=== PATIENT | male | born 1960 | race Caucasian/White ===

== ENCOUNTER 2017-09-06 09:46 | Emergency (ER) | payer MEDICARE, MEDICAID ==
[~2017-09-06 09:46] MED LIST: AMLO10TA82; ASP325T; ASP325T PO; ATOR80TA; CLPD75T; DLT60T PO; ENLP5T PO; HYDR-2889 PO; MTP100TCR PO; NTR.4SL SL; TRAM50TA2 PO; VALS320T8; VRP80T; [UNRECOGNIZED DRUG - CODE] PO; aleve; glipizide; hydrochlorothiazide; simvastatin
== END 2017-09-06 10:32 | disposition left against medical advice (07) ==
LOC: EDUNIT# 09:46 → ER 09:48
DX: S89.90XA Unspecified injury of unspecified lower leg, initial encounter (principal); W19.XXXA Unspecified fall, initial encounter

== ENCOUNTER → 2019-07-25 | Outpatient (CLI) | payer MEDICARE, MEDICAID ==
[2019-07-25 17:37] LABS: HEMOGLOBIN 14.8 G/DL (13.3-17.7); MEAN PLATELET VOLUME 12.1 FL (7.4-10.4); WHITE BLOOD COUNT 6.9 10^3/uL (4.3-11.0)
[2019-07-25 17:57] LABS: ALBUMIN 4.1 GM/DL (3.2-4.5); BILIRUBIN,TOTAL 0.7 MG/DL (0.1-1.0); CALCIUM 9.3 MG/DL (8.5-10.1); CREATININE SERUM 1.23 MG/DL (0.60-1.30); MAGNESIUM 2.1 MG/DL (1.6-2.4); POTASSIUM 4.4 MMOL/L (3.6-5.0); TOTAL PROTEIN 6.3 GM/DL (6.4-8.2)
== END ==
LOC: LABNPT 17:14
PROVIDERS: ATTEND Nurse Practitioner Family
DX: Z12.5 Encounter for screening for malignant neoplasm of prostate (principal); I25.10 Atherosclerotic heart disease of native coronary artery without angina pectoris; E11.9 Type 2 diabetes mellitus without complications; E78.5 Hyperlipidemia, unspecified; E55.9 Vitamin D deficiency, unspecified; E53.8 Deficiency of other specified B group vitamins
CPT/HCPCS: 80053; 82306; 82607; 83036; 83735; 84153; 85027

== ENCOUNTER → 2019-11-02 | Outpatient (CLI) | payer MEDICAID ==
[~2019-11-02] MED LIST changes: -TRAM50TA2 PO; +TRM50T PO
== END | disposition home or self-care (01) ==
LOC: PREOP 05:45
PROVIDERS: ATTEND Specialist
DX: Z01.818 Encounter for other preprocedural examination (principal)

== ENCOUNTER → 2021-01-30 | Outpatient (CLI) | payer MEDICAID ==
[2021-01-30 20:06] LABS: HEMATOCRIT 40 % (40-54); HEMOGLOBIN 13.4 g/dL (13.3-17.7); MEAN CORPUSCULAR HEMOGLOBIN 27 pg (25-34); MEAN CORPUSCULAR HGB CONC 34 g/dL (32-36); MEAN CORPUSCULAR VOLUME 80 fL (80-99); MEAN PLATELET VOLUME 10.8 fL (9.0-12.2); PLATELET COUNT 302 10^3/uL (130-400); WHITE BLOOD COUNT 8.9 10^3/uL (4.3-11.0)
[2021-01-30 20:26] LABS: ALBUMIN 3.5 GM/DL (3.2-4.5); BILIRUBIN,TOTAL 0.6 MG/DL (0.1-1.0); CALCIUM 9.5 MG/DL (8.5-10.1); CREATININE SERUM 1.65 MG/DL (0.60-1.30); MAGNESIUM 2.1 MG/DL (1.6-2.4); POTASSIUM 3.6 MMOL/L (3.6-5.0); TOTAL PROTEIN 5.7 GM/DL (6.4-8.2)
== END ==
LOC: LABNPT 19:00
PROVIDERS: ATTEND Nurse Practitioner Family
DX: E11.9 Type 2 diabetes mellitus without complications (principal); I50.9 Heart failure, unspecified
CPT/HCPCS: 36415; 80053; 82728; 83540; 83735; 83880; 84443; 85027

== ENCOUNTER 2021-02-08 14:47 | Outpatient (CLI) | payer MEDICARE, MEDICAID | END 2021-02-08 15:30 | disposition home or self-care (01) | LOC: SLEEP 14:47 | PROVIDERS: ATTEND Nurse Practitioner Family | DX: G47.33 Obstructive sleep apnea (adult) (pediatric) (principal); G47.10 Hypersomnia, unspecified | CPT/HCPCS: G0399 ==

== ENCOUNTER 2021-03-09 07:44 | Inpatient (IN) | payer MEDICARE, MEDICAID ==
[~2021-03-09] VITALS: Ht 170.1 cm; Wt 58.9 kg
[2021-03-09] MEDS ORDERED: morphine INJ 10 MG/ML 1ML (SYR OR VIAL) IVP STA (08:23)
[2021-03-09 08:34] LABS: BASOPHILS # (AUTO) 0.1 10^3/uL (0.0-0.1); BASOPHILS % (AUTO) 1 % (0-10); EOSINOPHILS # (AUTO) 0.2 10^3/uL (0.0-0.3); EOSINOPHILS % (AUTO) 2 % (0-10); HEMATOCRIT 38 % (40-54); LYMPHOCYTES # (AUTO) 1.1 10^3/uL (1.0-4.0); LYMPHOCYTES % (AUTO) 12 % (12-44); MEAN CORPUSCULAR HEMOGLOBIN 26 pg (25-34); MEAN CORPUSCULAR HGB CONC 32 g/dL (32-36); MEAN CORPUSCULAR VOLUME 83 fL (80-99); MEAN PLATELET VOLUME 9.7 fL (9.0-12.2); MONOCYTES # (AUTO) 0.8 10^3/uL (0.0-1.0); MONOCYTES % (AUTO) 9 % (0-12); NEUTROPHILS # (AUTO) 7.2 10^3/uL (1.8-7.8); NEUTROPHILS % (AUTO) 76 % (42-75); PLATELET COUNT 385 10^3/uL (130-400); WHITE BLOOD COUNT 9.5 10^3/uL (4.3-11.0)
[2021-03-09 08:37] LABS: CHLORIDE 99 MMOL/L (98-107); POTASSIUM 3.5 MMOL/L (3.6-5.0); SODIUM 136 MMOL/L (135-145)
[2021-03-09 08:38] LABS: CALCIUM 8.9 MG/DL (8.5-10.1)
[2021-03-09 08:39] LABS: GLUCOSE 255 MG/DL (70-105); TOTAL PROTEIN 5.8 GM/DL (6.4-8.2)
[2021-03-09 08:40] LABS: CARBON DIOXIDE 26 MMOL/L (21-32)
[2021-03-09 08:41] LABS: BILIRUBIN,TOTAL 0.9 MG/DL (0.1-1.0)
[2021-03-09 08:42] LABS: ALKALINE PHOSPHATASE 153 U/L (40-136)
[2021-03-09 08:43] LABS: GFR ESTIMATED > 60
[2021-03-09 08:44] LABS: BUN/CREATININE RATIO 12
[2021-03-09 08:46] LABS: ALANINE AMINOTRANSFERASE 43 U/L (0-55); MAGNESIUM 1.8 MG/DL (1.6-2.4)
--- NOTE | 2021-03-09 09:40 | Diagnostic Imaging Report ---
INDICATION: Fall and shortness of air. TIME OF EXAM: 9:19 AM Correlation is made with prior chest from 11/30/2009. FINDINGS: Heart size normal. There are patchy infiltrates noted in both lung bases. No significant effusion is seen. Mid and upper lung maldonado are clear. There is no pneumothorax. IMPRESSION: Patchy bibasilar pulmonary infiltrates. Dictated by: Dictated on workstation # [id number]
--- NOTE | 2021-03-09 09:41 | Diagnostic Imaging Report ---
INDICATION: Fall with pain and redness left foot. TIME OF EXAM: 9:21 AM 3 views left foot were obtained. FINDINGS: The metatarsals are intact. Phalanges are intact. Midfoot and hindfoot are unremarkable apart from plantar calcaneal spur. No fractures are seen. IMPRESSION: No acute bony abnormality is detected. Dictated by: Dictated on workstation # [id number]
[2021-03-09] MEDS ORDERED: ASPIRIN 81 MG CHEW (CHILDREN'S ASA) PO ONE (10:00)
[2021-03-09] MEDS ORDERED: CEFEPIME INJECTION 1,000 MG in WATER (STERILE) FOR INJECTION 10 ML IV ONE (10:00)
--- NOTE | 2021-03-09 10:10 | ED General ---
General Chief Complaint: General Problems/Pain Stated Complaint: SOB,FELL, BI LAT LEG SWELLING Nursing Triage Note: Pt to ED in wheelchair. Pt reports fall in the night and c/o bilat leg swelling. Pt has bruise on R abdomen and c/o L shoulder pain. Pt reports, "My feet feel like they are on fire." Caregiver reports pt had chest xray last week and pt had fluid on lungs. Pt has wounds on L foot. Pt reports, "I don't want to go home; I want to go to a alf." Nursing Sepsis Screen: No Definite Risk Source of Information: Patient, Family (family friend) Exam Limitations: No Limitations History of Present Illness Date Seen by Provider: Mar 09, 2021 Time Seen by Provider: 07:57 Initial Comments This is 60-year-old gentleman is brought to emergency room by family friend with complaints of shortness of breath, weakness, lower extremity swelling, pain in the lower extremities, and a fall without serious injury this morning after which he could not get up on his own. His left shoulder is mildly sore and he has a nontender bruise on his right abdomen. The friend who brought him states the living conditions are unacceptable in the home. Patient currently is the primary caregiver for his girlfriend who has hemiplegia from a prior stroke. The patient has flea infestation. They reportedly recently gave away their pets because they could not care for them properly anymore. Patient reports prior history of coronary artery disease and his primary actuarial manager is Dr. Tam at [facility] in [place]. His primary care provider care is at the [facility]. He denies any fever, vomiting, bowel diarrhea, or current pain. He reports having chest pain yesterday and in recent days but not today. He is an insulin- dependent type 2 diabetic. He has not been taking his blood sugars recently. His friend reports a blood sugar over the weekend was 500+. He is very hard of hearing and does not have hearing aids with him. Patient reports he would like to be admitted to a alf. Allergies and Home Medications Allergies Coded Allergies: NKANo Known Allergies (Verified Allergy, Unknown, 12/27/07) Home Medications Albuterol Sulfate 18 Gm Hfa.aer.ad, 2 PUFF INH Q6H PRN for SHORTNESS OF BREATH, (Reported) Last Action: Reviewed Amitriptyline HCl 10 Mg Tablet, 10 MG PO HS, (Reported) Last Action: Reviewed Cetirizine HCl 10 Mg Tablet, 10 MG PO DAILY, (Reported) Last Action: Reviewed Cyclobenzaprine HCl 5 Mg Tablet, 5 MG PO HS, (Reported) Last Action: Reviewed Furosemide 40 Mg Tablet, 40 MG PO DAILY, (Reported) Last Action: Reviewed Hydrochlorothiazide 50 Mg Tablet, 50 MG PO DAILY, (Reported) Last Action: Reviewed Insulin Glargine,Hum.rec.anlog 100 Unit/1 Ml Insuln.pen, 45 UNITS SC DAILY, (Reported) Last Action: Reviewed Linaclotide 72 Mcg Capsule, 72 MCG PO DAILY, (Reported) Last Action: Reviewed Montelukast Sodium 10 Mg Tablet, 10 MG PO DAILY, (Reported) Last Action: Reviewed Potassium Chloride 20 Meq Tab.er.prt, 20 MEQ PO DAILY, (Reported) Last Action: Reviewed Tamsulosin HCl 0.4 Mg Cap, 0.4 MG PO DAILY, (Reported) Last Action: Reviewed Triamterene/Hydrochlorothiazid 1 Each Tablet, 1 EA PO DAILY, (Reported) Last Action: Reviewed Patient Home Medication List Home Medication List Reviewed: Yes Review of Systems Review of Systems Constitutional: see HPI; No fever; weakness EENTM: no symptoms reported Respiratory: see HPI Cardiovascular: see HPI Gastrointestinal: no symptoms reported Genitourinary: no symptoms reported Musculoskeletal: no symptoms reported Skin: see HPI Psychiatric/Neurological: No Symptoms Reported Hematologic/Lymphatic: See HPI Immunological/Allergic: no symptoms reported Past Tnmjrbd-Ajznsx-Omypxm Hx Past Med/Social Hx: Reviewed and Corrections made Patient Social History Alcohol Use: Denies Use 2nd Hand Smoke Exposure: No Recent Infectious Disease Expo: No Recent Hopitalizations: Yes Immunizations Up To Date Date of Influenza Vaccine: Jun 16, 2014 Seasonal Allergies Seasonal Allergies: No Past Medical History Surgeries: Yes (R KNEE SX) Cardiac, Coronary Stent, Orthopedic Respiratory: No Cardiac: Yes Coronary Artery Disease, Heart Attack, Hypertension Neurological: Yes Stroke, TIA Reproductive Disorders: No Genitourinary: No Gastrointestinal: No Musculoskeletal: Yes Arthritis Endocrine: Yes Diabetes, Insulin dep Hearing Impairment: Hard of Hearing Cancer: No Psychosocial: No Integumentary: No Blood Disorders: Yes Family Medical History FH: heart disease 19 FATHER 19 MOTHER Heart Disease, Stroke Physical Exam-Suspected Sepsis Physical Exam Vital Signs Vital Signs - First Documented 03/09/21 07:46 Temp 36.7 Pulse 120 Resp 35 B/P (MAP) 125/87 (100) Pulse Ox 100 O2 Delivery Room Air Capillary Refill : Less Than 3 Seconds Blood Pressure Mean: 100 Height, Weight, BMI Height: 5'8" Weight: 175lbs. oz. 79.786228ba; 20.00 BMI Method:Stated General Appearance: No Apparent Distress, WD/WN, Mild Distress HEENT: PERRL/EOMI, Normal ENT Inspection, Other (No evidence of head injury) Neck: Normal Inspection, Non Tender Respiratory: No Accessory Muscle Use, No Respiratory Distress, Crackles (Few basilar crackles bilaterally), Decreased Breath Sounds, Other (Tachypnea) Cardiovascular: No Murmur, Normal Peripheral Pulses, Tachycardia, Other (Bilateral pitting lower extremity edema, left greater than right) Extremity: Pedal Edema, Other (Bilateral pitting lower extremity edema, left greater than right. Left foot is warm, erythematous, and tender with ulcers on the medial aspect) Neurologic/Psychiatric: Alert, Oriented x3, No Motor/Sensory Deficits, Normal Mood/Affect, child care associate II-XII Norm as Tested (Except very hard of hearing) Skin: warm/dry, other (See above. Weeping ulcers on the left medial foot and ankle) Focused Exam Lactate Level 03/09/21 09:06: Lactic Acid Level 1.73 Lactic Acid Level Progress/Results/Core Measures Suspected Sepsis Recent Fever Within 48 Hours: No Infection Criteria Present: None New/Unexplained Altered Menta: No Sepsis Screen: No Definite Risk SIRS Temperature: Pulse: 120 Respiratory Rate: 35 Laboratory Tests 03/09/21 07:54: White Blood Count 9.5 Blood Pressure 125 /87 Mean: 100 03/09/21 09:06: Lactic Acid Level 1.73 Laboratory Tests 03/09/21 07:54: Creatinine 1.10, INR Comment 1.0, Platelet Count 385, Total Bilirubin 0.9 Results/Orders Lab Results Laboratory Tests Test 03/09/21 07:54 03/09/21 08:33 03/09/21 09:06 03/09/21 11:18 Range/Units White Blood Count 9.5 4.3-11.0 10^3/uL Red Blood Count 4.55 4.30-5.52 10^6/uL Hemoglobin 12.0 L 13.3-17.7 g/dL Hematocrit 38 L 40-54 % Mean Corpuscular Volume 83 80-99 fL Mean Corpuscular Hemoglobin 26 25-34 pg Mean Corpuscular Hemoglobin Concent 32 32-36 g/dL Red Cell Distribution Width 15.9 H 10.0-14.5 % Platelet Count 385 130-400 10^3/uL Mean Platelet Volume 9.7 9.0-12.2 fL Immature Granulocyte % (Auto) 1 % Neutrophils (%) (Auto) 76 H 42-75 % Lymphocytes (%) (Auto) 12 12-44 % Monocytes (%) (Auto) 9 0-12 % Eosinophils (%) (Auto) 2 0-10 % Basophils (%) (Auto) 1 0-10 % Neutrophils # (Auto) 7.2 1.8-7.8 10^3/uL Lymphocytes # (Auto) 1.1 1.0-4.0 10^3/uL Monocytes # (Auto) 0.8 0.0-1.0 10^3/uL Eosinophils # (Auto) 0.2 0.0-0.3 10^3/uL Basophils # (Auto) 0.1 0.0-0.1 10^3/uL Immature Granulocyte # (Auto) 0.1 0.0-0.1 10^3/uL Prothrombin Time 14.0 12.2-14.7 SEC INR Comment 1.0 0.8-1.4 Activated Partial Thromboplast Time 30 24-35 SEC D-Dimer 2.06 H 0.00-0.49 UG/ML Sodium Level 136 135-145 MMOL/L Potassium Level 3.5 L 3.6-5.0 MMOL/L Chloride Level 99 98-107 MMOL/L Carbon Dioxide Level 26 21-32 MMOL/L Anion Gap 11 5-14 MMOL/L Blood Urea Nitrogen 13 7-18 MG/DL Creatinine 1.10 0.60-1.30 MG/DL Estimat Glomerular Filtration Rate > 60 BUN/Creatinine Ratio 12 Glucose Level 255 H 70-105 MG/DL Calcium Level 8.9 8.5-10.1 MG/DL Corrected Calcium 9.7 8.5-10.1 MG/DL Magnesium Level 1.8 1.6-2.4 MG/DL Total Bilirubin 0.9 0.1-1.0 MG/DL Aspartate Amino Transf (AST/SGOT) 18 5-34 U/L Alanine Aminotransferase (ALT/SGPT) 43 0-55 U/L Alkaline Phosphatase 153 H 40-136 U/L Myoglobin 111.0 H 10.0-92.0 NG/ML Troponin I 0.184 H <0.028 NG/ML C-Reactive Protein High Sensitivity 1.33 H 0.00-0.50 MG/DL B-Type Natriuretic Peptide 2554.0 H <100.0 PG/ML Total Protein 5.8 L 6.4-8.2 GM/DL Albumin 3.0 L 3.2-4.5 GM/DL Influenza Type A (RT-PCR) Not Detected Not Detecte Influenza Type B (RT-PCR) Not Detected Not Detecte SARS-CoV-2 RNA (RT-PCR) Not Detected Not Detecte Lactic Acid Level 1.73 0.50-2.00 MMOL/L Urine Color YELLOW Urine Clarity CLEAR Urine pH 6.0 5-9 Urine Specific [place] 1.020 1.016-1.022 Urine Protein 1+ H NEGATIVE Urine Glucose (UA) 2+ H NEGATIVE Urine Ketones NEGATIVE NEGATIVE Urine Nitrite NEGATIVE NEGATIVE Urine Bilirubin NEGATIVE NEGATIVE Urine Urobilinogen 0.2 < = 1.0 MG/DL Urine Leukocyte Esterase NEGATIVE NEGATIVE Urine RBC (Auto) NEGATIVE NEGATIVE Urine RBC NONE /HPF Urine WBC RARE /HPF Urine Squamous Epithelial Cells RARE /HPF Urine Crystals NONE /LPF Urine Bacteria TRACE /HPF Urine Casts NONE /LPF Urine Mucus NEGATIVE /LPF Urine Culture Indicated CULTURE PENDING Test 03/09/21 11:28 03/09/21 17:08 Range/Units Glucometer 231 H 239 H 70-110 MG/DL My Orders Orders - ELINOR RAMSEY MD Cbc With Automated Diff (03/09/21 08:16) Comprehensive Metabolic Panel (03/09/21 08:16) Blood Culture (03/09/21 08:16) Sputum Culture (03/09/21 08:16) Urinalysis (03/09/21 08:16) Urine Culture (03/09/21 08:16) Protime With Inr (03/09/21 08:16) Partial Thromboplastin Time (03/09/21 08:16) Chest 1 View, Ap/Pa Only (03/09/21 08:16) Ed Iv/Invasive Line Start (03/09/21 08:16) Ed Iv/Invasive Line Start (03/09/21 08:16) Vital Signs Adult Sepsis Patie Q15M (03/09/21 08:16) O2 (03/09/21 08:16) Remove Rings In Anticipation O (03/09/21 08:16) Lactic Acid Analyzer (03/09/21 08:16) Ekg Tracing (03/09/21 08:16) Monitor-Rhythm Ecg Trace Only (03/09/21 08:16) Lipid Panel (03/10/21 06:00) Ed Iv/Invasive Line Start (03/09/21 08:16) BNP (03/09/21 08:16) Troponin I (03/09/21 08:16) Hs C Reactive Protein (03/09/21 08:16) Foot, Left, 3 Views (03/09/21 08:16) Morphine Injection (Morphine Injection (03/09/21 08:23) Covid 19 Inhouse Test (03/09/21 08:24) Influenza A And B By Pcr (03/09/21 08:24) Magnesium (03/09/21 07:54) Myoglobin Serum (03/09/21 07:54) Fibrin Degradation Products (03/09/21 08:59) Ct Angio Chest W (03/09/21 09:53) Us Venous Lower Ext Lt (03/09/21 10:00) Cefepime Injection (Maxipime Injection) (03/09/21 10:00) Aspirin Chewable Tablet (Baby Aspirin Ch (03/09/21 10:00) Furosemide Injection (Lasix Injection) (03/09/21 10:30) Iohexol Injection (Omnipaque 350 Mg/Ml 1 (03/09/21 10:30) Received Contrast (Hold Metformin- Contr (03/09/21 10:30) Sodium Chloride Flush (Catheter Flush Sy (03/09/21 10:30) Ns (Ivpb) (Sodium Chloride 0.9% Ivpb Bag (03/09/21 10:30) Potassium Bicarbonate/Cit Ac (Effer-K 20 (03/09/21 11:30) Medications Given in ED Current Medications Medications Dose Ordered Sig/Radha Route Start Time Stop Time Status Last Admin Dose Admin Aspirin 324 mg ONCE ONCE PO 03/09/21 10:00 03/09/21 10:02 DC 03/09/21 11:04 324 MG Cefepime HCl 1000 mg/Sterile Water 10 ml @ 200 mls/hr ONCE ONCE IV 03/09/21 10:00 03/09/21 10:02 DC 03/09/21 11:05 200 MLS/HR Furosemide 80 mg ONCE ONCE IVP 03/09/21 10:30 03/09/21 10:31 DC 03/09/21 11:31 80 MG Iohexol 100 ml ONCE ONCE IV 03/09/21 10:30 03/09/21 10:31 DC 03/09/21 10:59 62 ML Potassium Bicarbonate/ Citric Acid 40 meq ONCE ONCE PO 03/09/21 11:30 03/09/21 11:31 DC 03/09/21 11:31 40 MEQ Sodium Chloride 100 ml ONCE ONCE IV 03/09/21 10:30 03/09/21 10:31 DC 03/09/21 10:59 80 ML Vital Signs/I&O 03/09/21 03/09/21 03/09/21 03/09/21 12:33 13:00 13:10 14:00 Temp 36.7 36.9 Pulse 102 117 118 Resp 22 20 B/P (MAP) 126/90 (100) 140/92 (108) Pulse Ox 100 99 O2 Delivery Room Air Room Air Room Air 03/09/21 03/09/21 03/09/21 03/09/21 16:00 16:00 17:55 19:00 Temp 35.6 Pulse 116 114 113 Resp 20 B/P (MAP) 139/102 (114) 139/98 (112) Pulse Ox 97 O2 Delivery Room Air Room Air Capillary Refill : Less Than 3 Seconds Blood Pressure Mean: 100 Progress Note : Progress Note Patient was seen and evaluated. Septic and chest pain work-ups were pursued. Patient was given cefepime for empiric antibiotic therapy for cellulitis and possible pneumonia. Covid screening was negative. Cardiac work-up was positive for elevated BNP and troponin. Aspirin 324 mg chewed was given in the ER. EKG showed no acute ischemic changes. Patient was not presently experiencing chest pain. He was given 4 puffs from his inhaler. Vital signs remained stable. Case was discussed with Dr. Zuniga who recommended Lasix 80 mg now and daily. He also recommended potassium 40 mEq now and repeated with 20 mEq later today and twice daily. Echocardiogram was also ordered at his request. CT angiogram was negative for pulmonary emboli but showed large bilateral pleural effusions. I discussed CODE STATUS with patient and he would like to be full code but not prolonged efforts. He would like us to try "a little bit" and a code scenario. ECG Initial ECG Impression Date: Mar 09, 2021 Initial ECG Impression Time: 07:57 Initial ECG Rate: 113 Initial ECG Rhythm: S.Tach Comment Sinus tachycardia with possible right bundle branch block. No diagnostic ST elevation or depression. No abnormal intervals. Diagnostic Imaging Diagonstic Imaging: Ultrasound Plain Films/CT/US/NM/MRI: leg Comments NAME: DOYEN JERARDO [facility] REC#: [id number] PT STATUS: REG ER : 1960 PHYSICIAN: ELINOR RAMSEY MD ADMIT DATE: 03/09/21/ER Draft Date of Exam:03/09/21 US VENOUS LOWER EXT LT PROCEDURE: US left lower extremity venous. TECHNIQUE: Multiple real-time grayscale images were obtained over the left lower extremity in various projections. Additional duplex Doppler and color Doppler images were also obtained. INDICATION: Swelling and redness to left leg with elevated D-dimer. FINDINGS: Color Doppler imaging shows normal flow throughout the venous system of the left lower extremity. Calf compression shows normal augmentation of flow at the popliteal level with Doppler sampling. IMPRESSION: No evidence of venous thrombosis. Dictated on workstation # [id number] Dict: 03/09/21 1126 Trans: 03/09/21 1142 AS6 [id number] Interpreted by: CHARLEE BAUER MD Diagonstic Imaging: Xray Plain Films/CT/US/NM/MRI: other (Left foot) Comments NAME: DOYEN JERARDO [facility] REC#: [id number] PT STATUS: REG ER : 1960 PHYSICIAN: ELINOR RAMSEY MD ADMIT DATE: 03/09/21/ER Draft Date of Exam:03/09/21 FOOT, LEFT, 3 VIEWS INDICATION: Fall with pain and redness left foot. TIME OF EXAM: 9:21 AM 3 views left foot were obtained. FINDINGS: The metatarsals are intact. Phalanges are intact. Midfoot and hindfoot are unremarkable apart from plantar calcaneal spur. No fractures are seen. IMPRESSION: No acute bony abnormality is detected. Dictated on workstation # [id number] Dict: 03/09/21 0938 Trans: 03/09/21 0940 [id number] Interpreted by: FAISAL PASTOR MD Diagonstic Imaging: Xray Plain Films/CT/US/NM/MRI: chest Comments NAME: DOYEN [place] [facility] REC#: [id number] PT STATUS: REG ER : 1960 PHYSICIAN: ELINOR RAMSEY MD ADMIT DATE: 03/09/21/ER Draft Date of Exam:03/09/21 CHEST 1 VIEW, AP/PA ONLY INDICATION: Fall and shortness of air. TIME OF EXAM: 9:19 AM Correlation is made with prior chest from 11/30/2009. FINDINGS: Heart size normal. There are patchy infiltrates noted in both lung bases. No significant effusion is seen. Mid and upper lung maldonado are clear. There is no pneumothorax. IMPRESSION: Patchy bibasilar pulmonary infiltrates. Dictated on workstation # [id number] Dict: 03/09/21 0937 Trans: 03/09/21 0939 [id number] Interpreted by: FAISAL PASTOR MD Diagonstic Imaging: CT Plain Films/CT/US/NM/MRI: chest Comments CT angiogram of the chest viewed by me and report reviewed. See report below: NAME: DOYEN [place] [facility] REC#: [id number] PT STATUS: ADM IN : 1960 PHYSICIAN: ELINOR RAMSEY MD ADMIT DATE: 03/09/21/CSD Draft Date of Exam:03/09/21 CT ANGIO CHEST W PROCEDURE: CT angiography Chest. TECHNIQUE: After intravenous administration of contrast, thin section axial CT angiography of the chest was performed. 3D MIP reconstructions were made. All CT scans use one or more of the following dose optimizing techniques: automated exposure control, MA and/or KvP adjustment based on a patient size and exam type, or iterative reconstruction. INDICATION: Leg swelling. Right shoulder pain. Dyspnea. COMPARISON: Chest radiograph of 03/09/2021. FINDINGS: Vasculature: No pulmonary emboli. Pulmonary trunk is not dilated. Contrast does not opacify the aorta and therefore assessment for dissection is not possible. The aorta is normal in caliber. Heart and mediastinum: Visualized thyroid is normal. No supraclavicular, axillary, or intra-thoracic lymphadenopathy. Heart is enlarged with dilation of the left ventricle and left atrium. No pericardial effusion. Pleura: Large bilateral pleural effusions appear free flowing. Lungs and airway: No endoluminal lesion in the trachea or central bronchi. Intralobular thickening and patchy groundglass opacities are most indicative of pulmonary edema. Upper abdomen: Allowing for the phase of contrast, no acute abnormality in the upper abdomen is seen. Musculoskeletal: No concerning osseous lesion. IMPRESSION: 1. No pulmonary emboli. 2. Large pleural effusions with mild pulmonary edema is likely due to congestive heart failure. 3. Dilated left ventricle and left atrium. Severe coronary artery calcifications. Dictated on workstation # [id number] Dict: 03/09/21 1139 Trans: 03/09/21 1200 AS6 [id number] Interpreted by: KAEL BAUER MD Departure Communication (Admissions) Time/Spoke to Admitting Phy: 10:40 Dr. Christian Time/Spoke to Consulting Phy: 10:15 Dr. Zuniga Impression Primary Impression: Acute heart failure Qualified Codes: I50.9 - Heart failure, unspecified Additional Impressions: Elevated troponin Cellulitis of left foot Pleural effusion Diabetic foot ulcers Qualified Codes: E11.621 - Type 2 diabetes mellitus with foot ulcer; L97.429 - Non-pressure chronic ulcer of left heel and midfoot with unspecified severity Disposition: ADMITTED INPATIENT Condition: Stable Admissions Decision to Admit Reason: Admit from ER (General) Decision to Admit/Date: Mar 09, 2021 Time/Decision to Admit Time: 10:10 Departure-Patient Inst. Referrals: NO,LOCAL PHYSICIAN (PCP/Family) Primary Care Physician ELINOR RAMSEY MD Mar 09, 2021 10:10
[2021-03-09] MEDS ORDERED: KCL 10 MEQ TAB (MICRO K) PO ONE (10:30)
[2021-03-09] MEDS ORDERED: CATHETER FLUSH 10 ML SYR IV PRN ×2 (10:30→13:00)
[2021-03-09] MEDS ORDERED: FUROSEMIDE 40 MG/4 ML INJ (LASIX) IVP ONE (10:30)
[2021-03-09] MEDS ORDERED: HOLD METFORMIN - RECEIVED CONTRAST 20 ML VIAL IV SCH (10:30)
[2021-03-09] MEDS ORDERED: NS 100 ML (IVPB) BAG IV ONE (10:30)
[2021-03-09] MEDS ORDERED: IOHEXOL 350 MG/ML 100 ML (OMNIPAQUE 350) VIAL IV ONE (10:30)
[2021-03-09 11:28] LABS: BILIRUBIN,URINE NEGATIVE (NEGATIVE); CLARITY,URINE CLEAR; COLOR,URINE YELLOW; GLUCOSE, URINE (UA) 2+ (NEGATIVE); KETONES,URINE NEGATIVE (NEGATIVE); LEUKOCYTE ESTERASE ,URINE NEGATIVE (NEGATIVE); NITRITE,URINE NEGATIVE (NEGATIVE); PROTEIN,URINE 1+ (NEGATIVE)
[2021-03-09] MEDS ORDERED: POTASSIUM BICARB 20 MEQ (EFFER-K) TABLET PO ONE (11:30)
--- NOTE | 2021-03-09 11:42 | Diagnostic Imaging Report ---
PROCEDURE: US left lower extremity venous. TECHNIQUE: Multiple real-time grayscale images were obtained over the left lower extremity in various projections. Additional duplex Doppler and color Doppler images were also obtained. INDICATION: Swelling and redness to left leg with elevated D-dimer. FINDINGS: Color Doppler imaging shows normal flow throughout the venous system of the left lower extremity. Calf compression shows normal augmentation of flow at the popliteal level with Doppler sampling. IMPRESSION: No evidence of venous thrombosis. Dictated by: Dictated on workstation # [id number]
[2021-03-09 11:49] LABS: BACTERIA,URINE TRACE /HPF; SQUAMOUS EPITHELIAL CELL,UR RARE /HPF; WBC,URINE RARE /HPF
--- NOTE | 2021-03-09 12:01 | Diagnostic Imaging Report ---
PROCEDURE: CT angiography Chest. TECHNIQUE: After intravenous administration of contrast, thin section axial CT angiography of the chest was performed. 3D MIP reconstructions were made. All CT scans use one or more of the following dose optimizing techniques: automated exposure control, MA and/or KvP adjustment based on a patient size and exam type, or iterative reconstruction. INDICATION: Leg swelling. Right shoulder pain. Dyspnea. COMPARISON: Chest radiograph of 03/09/2021. FINDINGS: Vasculature: No pulmonary emboli. Pulmonary trunk is not dilated. Contrast does not opacify the aorta and therefore assessment for dissection is not possible. The aorta is normal in caliber. Heart and mediastinum: Visualized thyroid is normal. No supraclavicular, axillary, or intra-thoracic lymphadenopathy. Heart is enlarged with dilation of the left ventricle and left atrium. No pericardial effusion. Pleura: Large bilateral pleural effusions appear free flowing. Lungs and airway: No endoluminal lesion in the trachea or central bronchi. Intralobular thickening and patchy groundglass opacities are most indicative of pulmonary edema. Upper abdomen: Allowing for the phase of contrast, no acute abnormality in the upper abdomen is seen. Musculoskeletal: No concerning osseous lesion. IMPRESSION: 1. No pulmonary emboli. 2. Large pleural effusions with mild pulmonary edema is likely due to congestive heart failure. 3. Dilated left ventricle and left atrium. Severe coronary artery calcifications. Dictated by: Dictated on workstation # [id number]
[2021-03-09] MEDS ORDERED: POTASSIUM BICARB 20 MEQ (EFFER-K) TABLET PO NR (13:00)
[2021-03-09] MEDS ORDERED: HYDROcodone/APAP 5 MG/325 MG (LORTAB) TAB PO PRN (13:00)
[2021-03-09] MEDS ORDERED: ONDANSETRON 4 MG/2 ML (SDV) Z0FRAN IV PRN (13:00)
--- NOTE | 2021-03-09 13:27 | History & Physical ---
HPI History of Present Illness: 60 yo male came to ER after he fell and was down for 15 minutes, eventually crawled to end of bed and pulled himself up. He denies hitting anything when he fell, has a bruise on abdomen and shoulder. He denies dizziness or chest pain just before he fell, but did have some chest pain after he fell that he states wasn't major. His feet are swollen and have sores on them, started swelling 2-3 weeks ago but have been getting worse. He denies current chest pain, but had chest pain 3-4 days ago. He has been short of breath when laying down for about 3-4 weeks, sometimes short of breath sitting up. He denies fever. He admits cough that is nonproductive. Source: patient Date seen by provider: Mar 09, 2021 Time Seen by Provider: 13:25 Attending Physician Daniele Christian MD PCP No,Local Physician Consult Date of Admission Mar 09, 2021 at 11:43 Home Medications Home Medications Reviewed patient Home Medication Reconciliation performed by pharmacy medication reconciliations telecommunication tower technician and/or nursing. Patients Allergies have been reviewed. Allergies Coded Allergies: NKANo Known Allergies (Verified Allergy, Unknown, 12/27/07) DBJ-Ckulif-Ocijow Hx Patient Social History Smoking Status: Never a Smoker 2nd Hand Smoke Exposure: No Recent Hopitalizations: Yes Alcohol Use?: No Have you traveled recently?: No Immunizations Up To Date Date of Influenza Vaccine: Jun 16, 2014 Past Medical History PMHx Heart disease Diabetes HTN HLD SurgHx: Denies Family Medical History Significant Family History: Heart Disease, Stroke Family History: FH: heart disease 19 FATHER 19 MOTHER Review of Systems ([facility]) Constitutional: No fever; weakness EENTM: No nose congestion Respiratory: cough Cardiovascular: chest pain Gastrointestinal: No abdominal pain, No constipation, No diarrhea, No nausea, No vomiting Genitourinary: dysuria (sometimes) Musculoskeletal: joint pain (knees) Skin: No rash Reviewed Test Results Reviewed Test Results Lab Laboratory Tests Test 03/09/21 07:54 03/09/21 08:33 03/09/21 09:06 03/09/21 11:18 Range/Units White Blood Count 9.5 4.3-11.0 10^3/uL Red Blood Count 4.55 4.30-5.52 10^6/uL Hemoglobin 12.0 L 13.3-17.7 g/dL Hematocrit 38 L 40-54 % Mean Corpuscular Volume 83 80-99 fL Mean Corpuscular Hemoglobin 26 25-34 pg Mean Corpuscular Hemoglobin Concent 32 32-36 g/dL Red Cell Distribution Width 15.9 H 10.0-14.5 % Platelet Count 385 130-400 10^3/uL Mean Platelet Volume 9.7 9.0-12.2 fL Immature Granulocyte % (Auto) 1 % Neutrophils (%) (Auto) 76 H 42-75 % Lymphocytes (%) (Auto) 12 12-44 % Monocytes (%) (Auto) 9 0-12 % Eosinophils (%) (Auto) 2 0-10 % Basophils (%) (Auto) 1 0-10 % Neutrophils # (Auto) 7.2 1.8-7.8 10^3/uL Lymphocytes # (Auto) 1.1 1.0-4.0 10^3/uL Monocytes # (Auto) 0.8 0.0-1.0 10^3/uL Eosinophils # (Auto) 0.2 0.0-0.3 10^3/uL Basophils # (Auto) 0.1 0.0-0.1 10^3/uL Immature Granulocyte # (Auto) 0.1 0.0-0.1 10^3/uL Prothrombin Time 14.0 12.2-14.7 SEC INR Comment 1.0 0.8-1.4 Activated Partial Thromboplast Time 30 24-35 SEC D-Dimer 2.06 H 0.00-0.49 UG/ML Sodium Level 136 135-145 MMOL/L Potassium Level 3.5 L 3.6-5.0 MMOL/L Chloride Level 99 98-107 MMOL/L Carbon Dioxide Level 26 21-32 MMOL/L Anion Gap 11 5-14 MMOL/L Blood Urea Nitrogen 13 7-18 MG/DL Creatinine 1.10 0.60-1.30 MG/DL Estimat Glomerular Filtration Rate > 60 BUN/Creatinine Ratio 12 Glucose Level 255 H 70-105 MG/DL Calcium Level 8.9 8.5-10.1 MG/DL Corrected Calcium 9.7 8.5-10.1 MG/DL Magnesium Level 1.8 1.6-2.4 MG/DL Total Bilirubin 0.9 0.1-1.0 MG/DL Aspartate Amino Transf (AST/SGOT) 18 5-34 U/L Alanine Aminotransferase (ALT/SGPT) 43 0-55 U/L Alkaline Phosphatase 153 H 40-136 U/L Myoglobin 111.0 H 10.0-92.0 NG/ML Troponin I 0.184 H <0.028 NG/ML C-Reactive Protein High Sensitivity 1.33 H 0.00-0.50 MG/DL B-Type Natriuretic Peptide 2554.0 H <100.0 PG/ML Total Protein 5.8 L 6.4-8.2 GM/DL Albumin 3.0 L 3.2-4.5 GM/DL Influenza Type A (RT-PCR) Not Detected Not Detecte Influenza Type B (RT-PCR) Not Detected Not Detecte SARS-CoV-2 RNA (RT-PCR) Not Detected Not Detecte Lactic Acid Level 1.73 0.50-2.00 MMOL/L Urine Color YELLOW Urine Clarity CLEAR Urine pH 6.0 5-9 Urine Specific [place] 1.020 1.016-1.022 Urine Protein 1+ H NEGATIVE Urine Glucose (UA) 2+ H NEGATIVE Urine Ketones NEGATIVE NEGATIVE Urine Nitrite NEGATIVE NEGATIVE Urine Bilirubin NEGATIVE NEGATIVE Urine Urobilinogen 0.2 < = 1.0 MG/DL Urine Leukocyte Esterase NEGATIVE NEGATIVE Urine RBC (Auto) NEGATIVE NEGATIVE Urine RBC NONE /HPF Urine WBC RARE /HPF Urine Squamous Epithelial Cells RARE /HPF Urine Crystals NONE /LPF Urine Bacteria TRACE /HPF Urine Casts NONE /LPF Urine Mucus NEGATIVE /LPF Urine Culture Indicated CULTURE PENDING Test 03/09/21 11:28 03/09/21 17:08 03/09/21 20:13 Range/Units Glucometer 231 H 239 H 151 H 70-110 MG/DL Physical Exam-(CHC) Physical Exam Vital Signs VS - Last 72 Hours, by Label 03/09/21 03/09/21 03/09/21 03/09/21 07:46 12:33 13:00 13:10 Temp 36.7 36.7 Pulse 120 102 117 Resp 35 22 B/P (MAP) 125/87 (100) 126/90 (100) Pulse Ox 100 100 O2 Delivery Room Air Room Air Room Air 03/09/21 03/09/21 03/09/21 03/09/21 14:00 16:00 16:00 17:55 Temp 36.9 35.6 Pulse 118 116 114 Resp 20 20 B/P (MAP) 140/92 (108) 139/102 (114) 139/98 (112) Pulse Ox 99 97 O2 Delivery Room Air Room Air Room Air 03/09/21 03/09/21 03/09/21 19:00 20:00 20:35 Temp 35.8 Pulse 113 110 Resp 24 B/P (MAP) 139/104 (116) Pulse Ox 98 O2 Delivery Room Air Room Air Capillary Refill : Less Than 3 Seconds General Appearance: other (dishevelled) Respiratory: decreased breath sounds Cardiovascular: regular rate, rhythm Gastrointestinal: normal bowel sounds, non tender, soft Extremities: pedal edema (erythema and 2+ pitting edema) Neurologic/Psychiatric: alert, normal mood/affect Assessment/Plan Assessment/Plan Admission Status: Inpatient Order (span 2 midnights) Reason for Inpatient Admission: CHF exacerbation (1) Elevated troponin Status: Acute Assessment & Plan: Cardiology consulted, appreciate recommendations. (2) Acute heart failure Status: Acute Assessment & Plan: BNP elevated, marked edema. Mer[place], Cardiology consulted, appreciate recommendations. Qualifiers: Qualified Codes: I50.9 - Heart failure, unspecified (3) Hypertension Status: Chronic Qualifiers: Qualified Codes: I10 - Essential (primary) hypertension (4) Hyperlipidemia Status: Chronic (5) Diabetes mellitus Status: Chronic Qualifiers: (6) Fall on same level from slipping, tripping or stumbling Status: Acute (7) Cellulitis Status: Acute Assessment & Plan: Cefepime Qualifiers: (8) DVT prophylaxis Status: Acute Assessment & Plan: Enoxaparin DANIELE CHRISTIAN MD Mar 09, 2021 13:27
[2021-03-09 14:00] VITALS: BP 140/92
--- NOTE | 2021-03-09 15:27 | Consultation-Cardiology ---
HPI-Cardiology Cardiology Consultation: Date of Consultation 03/09/21 Time Seen by a Provider: 15:22 Date of Admission 03-09-21 Attending Physician Jaye Christian MD Admitting Physician No,Local Physician Consulting Physician Alonzo Zuinga MD HPI: Chief Complaint: Decompensated CHF Mr. Oseguera is a 60 yr old male admitted to [facility] from the ED with c/o increasing bilat LE swelling and SOB over the last 3-[address] Tam at [facility] is his primary elevator operator service whom he saw yesterday for an appt. He denies any c/o CP. No c/o palpitations, syncope or near syncope. He reports he has been compliant with his medications. No c/o n/v/d. No c/o fever or chills. Review of Systems-Cardiology Review of Systems Constitutional: No chills, No fever, No lightheadedness Eyes: No vision change Ears/Nose/Throat: chronic hearing loss; No epistaxis, No recent hearing loss Respiratory: As described under HPI Cardiovascular: As described under HPI Gastrointestinal: No constipation, No diarrhea, No nausea, No vomiting Genitourinary: No dysuria, No hematuria Skin: other (abrasion to right clavicular region and mild bruising) Psychiatric/Neurological: No anxiety, No depression, No seizure, No focal weakness, No syncope Hematologic: No bleeding abnormalities CUW-Rgufqm-[place] Hx Patient Social History Smoking Status: Never a Smoker 2nd Hand Smoke Exposure: No Have you traveled recently?: No Alcohol Use?: No Pt feels they are or have been: No Immunizations Up To Date Date of Influenza Vaccine: Jun 16, 2014 Past Medical History PMH As described under Assessment. Family Medical History Family Medical History: He reports his mother and father both had CAD Family History: FH: heart disease 19 FATHER 19 MOTHER Allergies and Home Medications Allergies Coded Allergies: NKANo Known Allergies (Verified Allergy, Unknown, 12/27/07) Home Medications Albuterol Sulfate 18 Gm Hfa.aer.ad, 2 PUFF INH Q6H PRN for SHORTNESS OF BREATH, (Reported) Last Action: Continued Amitriptyline HCl 10 Mg Tablet, 10 MG PO HS, (Reported) Last Action: Continued Cetirizine HCl 10 Mg Tablet, 10 MG PO DAILY, (Reported) Last Action: Held Cyclobenzaprine HCl 5 Mg Tablet, 5 MG PO HS, (Reported) Last Action: Converted Furosemide 40 Mg Tablet, 40 MG PO DAILY, (Reported) Last Action: Held Hydrochlorothiazide 50 Mg Tablet, 50 MG PO DAILY, (Reported) Last Action: Held Insulin Glargine,Hum.rec.anlog 100 Unit/1 Ml Insuln.pen, 45 UNITS SC DAILY, (Reported) Last Action: Converted Linaclotide 72 Mcg Capsule, 72 MCG PO DAILY, (Reported) Last Action: Converted Montelukast Sodium 10 Mg Tablet, 10 MG PO DAILY, (Reported) Last Action: Continued Potassium Chloride 20 Meq Tab.er.prt, 20 MEQ PO DAILY, (Reported) Last Action: Held Tamsulosin HCl 0.4 Mg Cap, 0.4 MG PO DAILY, (Reported) Last Action: Continued Triamterene/Hydrochlorothiazid 1 Each Tablet, 1 EA PO DAILY, (Reported) Last Action: Held Physical Exam-Cardiology Physical Exam Vital Signs/I&O 03/10/21 03/10/21 03/10/21 03/10/21 00:02 00:02 01:00 03:41 Temp 35.4 Pulse 98 103 Resp 20 B/P (MAP) 122/94 (103) Pulse Ox 99 O2 Delivery Room Air Room Air Room Air 03/10/21 03/10/21 03:59 07:00 Temp 36.3 Pulse 98 101 Resp 20 B/P (MAP) 148/103 (118) Pulse Ox 96 O2 Delivery Room Air 03/10/21 00:00 Intake Total 750 ml Output Total 1700 ml Balance -950 ml Capillary Refill : Less Than 3 Seconds Constitutional: AAO x 3, well-developed, well-nourished HEENT: PERRL, hard of hearing; No oral hygience is good Neck: No carotid bruit; carotid pulses are 2 + bilaterally Respiratory: No accessory muscle use, No respiratory distress; chest expansion is symmetric, chest is bilaterally symmetric, crackles (bi-basilar crackles) Cardiovascular: regular rate-rhythm, JVD, S1 and S2 Gastrointestinal: No tender; soft, round, audible bowel sounds Extremities: other (bilat LE pitting edema from feet to knees) Neurologic/Psychiatric: grossly intact (moves all extremities) Skin: warm/dry, other (See above. Weeping ulcers on the left medial foot and ankle) Data Review Labs Laboratory Tests 03/09/21 09:06: Lactic Acid Level 1.73 03/09/21 11:18: Urine Color YELLOW, Urine Clarity CLEAR, Urine pH 6.0, Urine Specific [place] 1.020, Urine Protein 1+H, Urine Glucose (UA) 2+H, Urine Ketones NEGATIVE, Urine Nitrite NEGATIVE, Urine Bilirubin NEGATIVE, Urine Urobilinogen 0.2, Urine Leukocyte Esterase NEGATIVE, Urine RBC (Auto) NEGATIVE, Urine RBC NONE, Urine WBC RARE, Urine Squamous Epithelial Cells RARE, Urine Crystals NONE, Urine Bacteria TRACE, Urine Casts NONE, Urine Mucus NEGATIVE, Urine Culture Indicated CULTURE PENDING 03/09/21 11:28: Glucometer 231H 03/09/21 17:08: Glucometer 239H 03/09/21 20:13: Glucometer 151H 03/10/21 04:03: Sodium Level 139, Potassium Level 3.4L, Chloride Level 99, Carbon Dioxide Level 26, Anion Gap 14, Blood Urea Nitrogen 16, Creatinine 1.11, Estimat Glomerular Filtration Rate > 60, BUN/Creatinine Ratio 14, Glucose Level 61L, Calcium Level 9.2, Magnesium Level 1.9, Triglycerides Level 54, Cholesterol Level 163, LDL Cholesterol Direct 83, VLDL Cholesterol 11, HDL Cholesterol 71H Radiology NAME: DOYEN Argentina OSEGUERA [facility] REC#: [id number] PT STATUS: REG ER : 1960 PHYSICIAN: ELINOR RAMSEY MD ADMIT DATE: 03/09/21/ER Draft Date of Exam:03/09/21 CHEST 1 VIEW, AP/PA ONLY INDICATION: Fall and shortness of air. TIME OF EXAM: 9:19 AM Correlation is made with prior chest from 11/30/2009. FINDINGS: Heart size normal. There are patchy infiltrates noted in both lung bases. No significant effusion is seen. Mid and upper lung maldonado are clear. There is no pneumothorax. IMPRESSION: Patchy bibasilar pulmonary infiltrates. Dictated on workstation # [id number] Dict: 03/09/21 0937 Trans: 03/09/21 0939 [id number] Interpreted by: FAISAL PASTOR MD Electronically signed by: NAME: CONTRERAS OSEGUERAPreston [facility] REC#: [id number] PT STATUS: ADM IN : 1960 PHYSICIAN: ELINOR RAMSEY MD ADMIT DATE: 03/09/21/CSD Signed Date of Exam:03/09/21 CT ANGIO CHEST W PROCEDURE: CT angiography Chest. TECHNIQUE: After intravenous administration of contrast, thin section axial CT angiography of the chest was performed. 3D MIP reconstructions were made. All CT scans use one or more of the following dose optimizing techniques: automated exposure control, MA and/or KvP adjustment based on a patient size and exam type, or iterative reconstruction. INDICATION: Leg swelling. Right shoulder pain. Dyspnea. COMPARISON: Chest radiograph of 03/09/2021. FINDINGS: Vasculature: No pulmonary emboli. Pulmonary trunk is not dilated. Contrast does not opacify the aorta and therefore assessment for dissection is not possible. The aorta is normal in caliber. Heart and mediastinum: Visualized thyroid is normal. No supraclavicular, axillary, or intra-thoracic lymphadenopathy. Heart is enlarged with dilation of the left ventricle and left atrium. No pericardial effusion. Pleura: Large bilateral pleural effusions appear free flowing. Lungs and airway: No endoluminal lesion in the trachea or central bronchi. Intralobular thickening and patchy groundglass opacities are most indicative of pulmonary edema. Upper abdomen: Allowing for the phase of contrast, no acute abnormality in the upper abdomen is seen. Musculoskeletal: No concerning osseous lesion. IMPRESSION: 1. No pulmonary emboli. 2. Large pleural effusions with mild pulmonary edema is likely due to congestive heart failure. 3. Dilated left ventricle and left atrium. Severe coronary artery calcifications. Dictated by: Dictated on workstation # [id number] Dict: 03/09/21 1139 Trans: 03/09/21 1501 [id number] Interpreted by: KAEL BAUER MD Electronically signed by: KAEL BAUER MD 03/09/21 1501 NAME: DOYEN Argentina OSEGUERA REC#: [id number] PT STATUS: REG ER : 1960 PHYSICIAN: ELINOR RAMSEY MD ADMIT DATE: 03/09/21/ER Draft Date of Exam:03/09/21 US VENOUS LOWER EXT LT PROCEDURE: US left lower extremity venous. TECHNIQUE: Multiple real-time grayscale images were obtained over the left lower extremity in various projections. Additional duplex Doppler and color Doppler images were also obtained. INDICATION: Swelling and redness to left leg with elevated D-dimer. FINDINGS: Color Doppler imaging shows normal flow throughout the venous system of the left lower extremity. Calf compression shows normal augmentation of flow at the popliteal level with Doppler sampling. IMPRESSION: No evidence of venous thrombosis. Dictated on workstation # [id number] Dict: 03/09/21 1126 Trans: 03/09/21 1142 [id number] [id number] Interpreted by: CHARLEE BAUER MD Electronically signed by: A/P-Cardiology Assessment/Admission Diagnosis Acute on likley chronic CHF CAD: - reports h/o [address] Tam at [facility] in [place], [place] - most recent stent placement greater than 1 yr ago Minimal troponin elevation - NSTEMI vs Type 2 MS secondary to acute decompensated CHF HTN HLD H/O CVA approx 4 yrs ago - details unknown DM 2 Family h/o CAD (mother and father) Discussion and Recomendations Acute on chronic CHF - treat with diuretics Continue ASA d/t known h/o CAD with stenting in the past Start BB tx Replace electrolytes Monitor lab Echocardiogram to eval structure and function Request records from Dr. Tam at [facility] in [place], [place] We would like to thank medical services for this consult Further recs will be based on his hospital course MADELINE WARE Mar 09, 2021 15:26
[2021-03-09] MEDS ORDERED: INSU100I34 SC (15:50)
[2021-03-09] MEDS ORDERED: HYDR50TA6 PO (15:50)
[2021-03-09] MEDS ORDERED: AMT10T PO (15:50)
[2021-03-09] MEDS ORDERED: TMSL.4C PO (15:50)
[2021-03-09] MEDS ORDERED: POTA20TA8 PO (15:50)
[2021-03-09] MEDS ORDERED: CETI10TA17 PO (15:50)
[2021-03-09] MEDS ORDERED: LINA72CA PO (15:50)
[2021-03-09] MEDS ORDERED: MONT10TA32 PO (15:50)
[2021-03-09] MEDS ORDERED: CYCL5TAB PO (15:50)
[2021-03-09] MEDS ORDERED: FURO40TA4 PO (15:50)
[2021-03-09] MEDS ORDERED: ALBU18HF2 INH (15:50)
[2021-03-09] MEDS ORDERED: TRIA1TAB5 PO (15:50)
[2021-03-09 16:00] VITALS: BP 139/102
[2021-03-09] MEDS: ENOXAPARIN 40 MG/0.4 ML (LOVENOX) SYR SC SCH (16:49)
[2021-03-09] MEDS: FUROSEMIDE 40 MG/4 ML INJ (LASIX) IVP SCH (17:53)
[2021-03-09] MEDS: inSUlin ASPART (NovoLOG) 1 UNIT/0.01 ML (CHARGE PER UNIT) SC SCH ×2 (17:53→20:15)
[2021-03-09] MEDS: CATHETER FLUSH 10 ML SYR IV SCH ×2 (17:53→20:21)
[2021-03-09] MEDS: CEFEPIME 1,000 MG/SWFI 10 ML IV PUSH IV SCH ×4 (17:54→23:19)
[2021-03-09 17:55] VITALS: BP 139/98
--- NOTE | 2021-03-09 19:04 | Consultation-Cardiology ---
HPI-Cardiology Cardiology Consultation: Date of Consultation 03/09/21 Time Seen by a Provider: 18:30 Date of Admission Attending Physician Jaye Christian MD Admitting Physician No,Local Physician Consulting Physician ALBINO MORTON MD, MA, FACP, FACC, FSCAI, CCDS HPI: Chief Complaint: Reason for Cardiology consultation: Decompensated CHF HPI Mr. Oseguera is a 60 yr old male admitted to [facility] from the ED with c/o increasing bilat LE swelling and SOB over the last 3-[address] Tam at [facility] is his primary rn recovery whom he saw yesterday for an appt. He denies any c/o CP. No c/o palpitations, syncope or near syncope. He reports he has been compliant with his medications. No c/o n/v/d. No c/o fever or chills. Review of Systems-Cardiology Review of Systems Constitutional: No chills, No fever, No lightheadedness Eyes: No vision change Ears/Nose/Throat: chronic hearing loss; No epistaxis, No recent hearing loss Respiratory: As described under HPI Cardiovascular: As described under HPI Gastrointestinal: No constipation, No diarrhea, No nausea, No vomiting Genitourinary: No dysuria, No hematuria Skin: other (abrasion to right clavicular region and mild bruising) Psychiatric/Neurological: No anxiety, No depression, No seizure, No focal weakness, No syncope Hematologic: No bleeding abnormalities SSS-Idajev-Lhsnac Hx Patient Social History Smoking Status: Never a Smoker 2nd Hand Smoke Exposure: No Have you traveled recently?: No Alcohol Use?: No Pt feels they are or have been: No Immunizations Up To Date Date of Influenza Vaccine: Jun 16, 2014 Past Medical History PMH As described under Assessment. Family Medical History Family Medical History: He reports his mother and father both had CAD Family History: FH: heart disease 19 FATHER 19 MOTHER Allergies and Home Medications Allergies Coded Allergies: NKANo Known Allergies (Verified Allergy, Unknown, 12/27/07) Home Medications Albuterol Sulfate 18 Gm Hfa.aer.ad, 2 PUFF INH Q6H PRN for SHORTNESS OF BREATH, (Reported) Last Action: Reviewed Amitriptyline HCl 10 Mg Tablet, 10 MG PO HS, (Reported) Last Action: Reviewed Cetirizine HCl 10 Mg Tablet, 10 MG PO DAILY, (Reported) Last Action: Reviewed Cyclobenzaprine HCl 5 Mg Tablet, 5 MG PO HS, (Reported) Last Action: Reviewed Furosemide 40 Mg Tablet, 40 MG PO DAILY, (Reported) Last Action: Reviewed Hydrochlorothiazide 50 Mg Tablet, 50 MG PO DAILY, (Reported) Last Action: Reviewed Insulin Glargine,Hum.rec.anlog 100 Unit/1 Ml Insuln.pen, 45 UNITS SC DAILY, (Reported) Last Action: Reviewed Linaclotide 72 Mcg Capsule, 72 MCG PO DAILY, (Reported) Last Action: Reviewed Montelukast Sodium 10 Mg Tablet, 10 MG PO DAILY, (Reported) Last Action: Reviewed Potassium Chloride 20 Meq Tab.er.prt, 20 MEQ PO DAILY, (Reported) Last Action: Reviewed Tamsulosin HCl 0.4 Mg Cap, 0.4 MG PO DAILY, (Reported) Last Action: Reviewed Triamterene/Hydrochlorothiazid 1 Each Tablet, 1 EA PO DAILY, (Reported) Last Action: Reviewed Patient Home Medication List Home Medication List Reviewed: Yes Physical Exam-Cardiology Physical Exam Vital Signs/I&O 03/09/21 03/09/21 03/09/21 03/09/21 07:46 12:33 13:00 13:10 Temp 36.7 36.7 Pulse 120 102 117 Resp 35 22 B/P (MAP) 125/87 (100) 126/90 (100) Pulse Ox 100 100 O2 Delivery Room Air Room Air Room Air 03/09/21 03/09/21 03/09/21 03/09/21 14:00 16:00 16:00 17:55 Temp 36.9 35.6 Pulse 118 116 114 Resp 20 20 B/P (MAP) 140/92 (108) 139/102 (114) 139/98 (112) Pulse Ox 99 97 O2 Delivery Room Air Room Air Room Air Capillary Refill : Less Than 3 Seconds Constitutional: AAO x 3, well-developed, well-nourished HEENT: PERRL, hard of hearing; No oral hygience is good Neck: No carotid bruit; carotid pulses are 2 + bilaterally Respiratory: No accessory muscle use, No respiratory distress; chest expansion is symmetric, chest is bilaterally symmetric, crackles (bi-basilar crackles) Cardiovascular: regular rate-rhythm, JVD, S1 and S2 Gastrointestinal: No tender; soft, round, audible bowel sounds Extremities: other (bilat LE pitting edema from feet to knees) Neurologic/Psychiatric: other (Moves all limbs equally) Skin: warm/dry, other (See above. Weeping ulcers on the left medial foot and ankle) Data Review Labs Laboratory Tests 03/09/21 07:54: White Blood Count 9.5, Red Blood Count 4.55, Hemoglobin 12.0L, Hematocrit 38L, Mean Corpuscular Volume 83, Mean Corpuscular Hemoglobin 26, Mean Corpuscular Hemoglobin Concent 32, Red Cell Distribution Width 15.9H, Platelet Count 385, Mean Platelet Volume 9.7, Immature Granulocyte % (Auto) 1, Neutrophils (%) (Auto) 76H, Lymphocytes (%) (Auto) 12, Monocytes (%) (Auto) 9, Eosinophils (%) (Auto) 2, Basophils (%) (Auto) 1, Neutrophils # (Auto) 7.2, Lymphocytes # (Auto) 1.1, Monocytes # (Auto) 0.8, Eosinophils # (Auto) 0.2, Basophils # (Auto) 0.1, Immature Granulocyte # (Auto) 0.1, Prothrombin Time 14.0, INR Comment 1.0, Activated Partial Thromboplast Time 30, D-Dimer 2.06H, Sodium Level 136, Potassium Level 3.5L, Chloride Level 99, Carbon Dioxide Level 26, Anion Gap 11, Blood Urea Nitrogen 13, Creatinine 1.10, Estimat Glomerular Filtration Rate > 60, BUN/Creatinine Ratio 12, Glucose Level 255H, Calcium Level 8.9, Corrected Calcium 9.7, Magnesium Level 1.8, Total Bilirubin 0.9, Aspartate Amino Transf (AST/SGOT) 18, Alanine Aminotransferase (ALT/SGPT) 43, Alkaline Phosphatase 153H , Myoglobin 111.0H, Troponin I 0.184H, C-Reactive Protein High Sensitivity 1.33H , B-Type Natriuretic Peptide 2554.0H, Total Protein 5.8L, Albumin 3.0L 03/09/21 08:33: Influenza Type A (RT-PCR) Not Detected, Influenza Type B (RT-PCR) Not Detected, SARS-CoV-2 RNA (RT-PCR) Not Detected 03/09/21 09:06: Lactic Acid Level 1.73 03/09/21 11:18: Urine Color YELLOW, Urine Clarity CLEAR, Urine pH 6.0, Urine Specific [place] 1.020, Urine Protein 1+H, Urine Glucose (UA) 2+H, Urine Ketones NEGATIVE, Urine Nitrite NEGATIVE, Urine Bilirubin NEGATIVE, Urine Urobilinogen 0.2, Urine Leukoc yte Esterase NEGATIVE, Urine RBC (Auto) NEGATIVE, Urine RBC NONE, Urine WBC RARE, Urine Squamous Epithelial Cells RARE, Urine Crystals NONE, Urine Bacteria TRACE, Urine Casts NONE, Urine Mucus NEGATIVE, Urine Culture Indicated CULTURE PENDING 03/09/21 11:28: Glucometer 231H 03/09/21 17:08: Glucometer 239H A/P-Cardiology Assessment/Admission Diagnosis Acute on likley chronic CHF CAD: - reports h/o [address] Tam at [facility] in [place], [place] - most recent stent placement greater than 1 yr ago Minimal troponin elevation - NSTEMI vs Type 2 MS secondary to acute decompensated CHF HTN HLD H/O CVA approx 4 yrs ago - details unknown DM 2 Family h/o CAD (mother and father) Discussion and Recomendations Acute on chronic CHF - treat with diuretics Continue ASA d/t known h/o CAD with stenting in the past Start BB tx Replace electrolytes Monitor lab Echocardiogram to eval structure and function Request records from Dr. Tam at [facility] in [place], [place] We would like to thank Medical services for this consult Further recs will be based on his hospital course ALBINO MORTON MD FACP FAC CCDS Mar 09, 2021 19:04
[2021-03-09 20:00] VITALS: BP 139/104
[2021-03-09] MEDS ORDERED: KCL 20 MEQ TAB (K-DUR) PO SCH (21:00)
[2021-03-09] MEDS ORDERED: POTASSIUM BICARB 20 MEQ (EFFER-K) TABLET PO SCH (21:00)
[2021-03-09] MEDS ORDERED: RT-ALBUTEROL SULF 2.5 MG/3 ML PRE-MIX VIAL INH PRN (22:15)
[2021-03-10 00:02] VITALS: BP 122/94
[2021-03-10 03:59] VITALS: BP 148/103
[2021-03-10 04:46] LABS: CHLORIDE 99 MMOL/L (98-107); POTASSIUM 3.4 MMOL/L (3.6-5.0); SODIUM 139 MMOL/L (135-145)
[2021-03-10 04:47] LABS: CALCIUM 9.2 MG/DL (8.5-10.1)
[2021-03-10 04:48] LABS: GLUCOSE 61 MG/DL (70-105); TRIGLYCERIDES 54 MG/DL (<150); VLDL CHOLESTEROL 11 MG/DL (5-40)
[2021-03-10 04:49] LABS: CARBON DIOXIDE 26 MMOL/L (21-32)
[2021-03-10 04:51] LABS: CREATININE SERUM 1.11 MG/DL (0.60-1.30); GFR ESTIMATED > 60
[2021-03-10 04:53] LABS: BUN/CREATININE RATIO 14; CHOLESTEROL 163 MG/DL (< 200)
[2021-03-10 04:54] LABS: HDL CHOLESTEROL 71 MG/DL (40-60); MAGNESIUM 1.9 MG/DL (1.6-2.4)
[2021-03-10] MEDS: inSUlin ASPART (NovoLOG) 1 UNIT/0.01 ML (CHARGE PER UNIT) SC SCH ×2 (05:04→10:56)
[2021-03-10] MEDS: FUROSEMIDE 40 MG/4 ML INJ (LASIX) IVP SCH (05:51)
[2021-03-10] MEDS: CEFEPIME 1,000 MG/SWFI 10 ML IV PUSH IV SCH ×4 (05:51→10:57)
[2021-03-10] MEDS: CATHETER FLUSH 10 ML SYR IV SCH ×2 (05:52→13:27)
[2021-03-10] MEDS ORDERED: FUROSEMIDE 40 MG/4 ML INJ (LASIX) IV SCH (07:00)
[2021-03-10 08:00] VITALS: BP 137/90
[2021-03-10] MEDS ORDERED: ASPIRIN 81 MG CHEW (CHILDREN'S ASA) PO SCH (09:00)
[2021-03-10] MEDS ORDERED: MONTELUKAST 10 MG (SINGULAIR) TAB PO SCH (09:00)
[2021-03-10] MEDS ORDERED: TAMSULOSIN 0.4 MG (FLOMAX) CAP PO SCH (09:00)
[2021-03-10] MEDS ORDERED: NON-FORMULARY MEDICATION 1 EA EA (Linaclotide (Linzess) 72 MCG) PO SCH (09:00)
--- NOTE | 2021-03-10 09:03 | Progress Note - Cardiology ---
Cardiology SOAP Progress Note Subjective: Sitting up on the side of the bed. Feels his breathing is getting better. LE swelling continues to persist without much improvement. No c/o CP or palpitations. Objective: I&O/Vital Signs 03/10/21 03/10/21 03/10/21 03/10/21 00:02 00:02 01:00 03:41 Temp 35.4 Pulse 98 103 Resp 20 B/P (MAP) 122/94 (103) Pulse Ox 99 O2 Delivery Room Air Room Air Room Air 03/10/21 03/10/21 03:59 07:00 Temp 36.3 Pulse 98 101 Resp 20 B/P (MAP) 148/103 (118) Pulse Ox 96 O2 Delivery Room Air 03/10/21 00:00 Intake Total 750 ml Output Total 1700 ml Balance -950 ml Weight (Pounds): 175 Weight (Calculated Kilograms): 79.723815 Constitutional: AAO x 3, well-developed, well-nourished Respiratory: No accessory muscle use, No respiratory distress; chest expansion is symmetric, chest is bilaterally symmetric, crackles (bi-basilar crackles) Cardiovascular: regular rate-rhythm, JVD, S1 and S2 Gastrointestional: No tender; soft, round, audible bowel sounds Extremities: other (bilat LE pitting edema from feet to knees) Neurologic/Psychiatric: other (Moves all limbs equally) Skin: warm/dry, other (See above. Weeping ulcers on the left medial foot and ankle) Results/Procedures: Labs Laboratory Tests 03/09/21 09:06: Lactic Acid Level 1.73 03/09/21 11:18: Urine Color YELLOW, Urine Clarity CLEAR, Urine pH 6.0, Urine Specific [place] 1.020, Urine Protein 1+H, Urine Glucose (UA) 2+H, Urine Ketones NEGATIVE, Urine Nitrite NEGATIVE, Urine Bilirubin NEGATIVE, Urine Urobilinogen 0.2, Urine Leukocyte Esterase NEGATIVE, Urine RBC (Auto) NEGATIVE, Urine RBC NONE, Urine WBC RARE, Urine Squamous Epithelial Cells RARE, Urine Crystals NONE, Urine Bacteria TRACE, Urine Casts NONE, Urine Mucus NEGATIVE, Urine Culture Indicated CULTURE PENDING 03/09/21 11:28: Glucometer 231H 03/09/21 17:08: Glucometer 239H 03/09/21 20:13: Glucometer 151H 03/10/21 04:03: Sodium Level 139, Potassium Level 3.4L, Chloride Level 99, Carbon Dioxide Level 26, Anion Gap 14, Blood Urea Nitrogen 16, Creatinine 1.11, Estimat Glomerular Filtration Rate > 60, BUN/Creatinine Ratio 14, Glucose Level 61L, Calcium Level 9.2, Magnesium Level 1.9, Triglycerides Level 54, Cholesterol Level 163, LDL Cholesterol Direct 83, VLDL Cholesterol 11, HDL Cholesterol 71H Laboratory Tests 03/09/21 07:54 03/10/21 04:03 A/P: Assessment: Acute on likley chronic CHF CAD: - reports h/o [address] Tam at [facility] in [place], [place] - most recent stent placement greater than 1 yr ago Minimal troponin elevation - NSTEMI vs Type 2 DC secondary to acute decompensated CHF HTN HLD H/O CVA approx 4 yrs ago - details unknown DM 2 Family h/o CAD (mother and father) Plan: Acute on chronic CHF - treat with diuretics - add metolazone Continue ASA d/t known h/o CAD with stenting in the past Increase BB Replace electrolytes Monitor lab Echocardiogram to eval structure and function Request records from Dr. Tam at [facility] in [place], [place] - have not received yet MADELINE WARE Mar 10, 2021 09:03
[2021-03-10] MEDS ORDERED: meTOproloL SUCCINATE 50 MG (TOPROL XL) TAB PO ONE (09:15)
[2021-03-10] MEDS ORDERED: METOLAZONE 5 MG (ZAROXOLYN) TAB PO ONE (09:15)
[2021-03-10] MEDS ORDERED: KCL 20 MEQ TAB (K-DUR) PO ONE (09:15)
[2021-03-10] MEDS ORDERED: POTASSIUM BICARB 20 MEQ (EFFER-K) TABLET PO NR ×2 (10:30→14:45)
--- NOTE | 2021-03-10 11:05 | Progress Note ---
Subjective Subjective/Events-last exam Afebrile, no acute events. States he feels short of breath with walking, but denies chest pain. Swelling is improving but feet still hurt. Focused Exam Lactate Level 03/09/21 09:06: Lactic Acid Level 1.73 Objective Exam Last Set of Vital Signs Vital Signs Date Time Temp Pulse Resp B/P (MAP) Pulse Ox O2 Delivery O2 Flow Rate FiO2 03/10/21 08:00 36.5 105 24 137/90 (106) 100 Room Air Capillary Refill : Less Than 3 Seconds I&O Intake and Output 03/10/21 00:00 Intake Total 750 ml Output Total 1700 ml Balance -950 ml Intake Oral 740 ml IV Total 10 ml Output Urine Total 1700 ml Daily Weight Change Yes, Greater than 33 lbs General: Alert, No Acute Distress Lungs: Clear to Auscultation Heart: Regular Rate Extremities: Other (2+ pitting edema, erythema with blistering to left inner ankle area) Neuro: Normal Speech Psych/Mental Status: Mood NL Results/Procedures Lab Laboratory Tests 03/09/21 11:18: Urine Color YELLOW, Urine Clarity CLEAR, Urine pH 6.0, Urine Specific [place] 1.020, Urine Protein 1+H, Urine Glucose (UA) 2+H, Urine Ketones NEGATIVE, Urine Nitrite NEGATIVE, Urine Bilirubin NEGATIVE, Urine Urobilinogen 0.2, Urine Leukocyte Esterase NEGATIVE, Urine RBC (Auto) NEGATIVE, Urine RBC NONE, Urine WBC RARE, Urine Squamous Epithelial Cells RARE, Urine Crystals NONE, Urine Bacteria TRACE, Urine Casts NONE, Urine Mucus NEGATIVE, Urine Culture Indicated CULTURE PENDING 03/09/21 11:28: Glucometer 231H 03/09/21 17:08: Glucometer 239H 03/09/21 20:13: Glucometer 151H 03/10/21 04:03: Sodium Level 139, Potassium Level 3.4L, Chloride Level 99, Carbon Dioxide Level 26, Anion Gap 14, Blood Urea Nitrogen 16, Creatinine 1.11, Estimat Glomerular Filtration Rate > 60, BUN/Creatinine Ratio 14, Glucose Level 61L, Calcium Level 9.2, Magnesium Level 1.9, Triglycerides Level 54, Cholesterol Level 163, LDL Cholesterol Direct 83, VLDL Cholesterol 11, HDL Cholesterol 71H 03/10/21 09:34: Glucometer 211H Radiology NAME: DOYEN Argentina KURTZ [facility] REC#: [id number] PT STATUS: REG ER : 1960 PHYSICIAN: ELINOR RAMSEY MD ADMIT DATE: 03/09/21/ER Draft Date of Exam:03/09/21 CHEST 1 VIEW, AP/PA ONLY INDICATION: Fall and shortness of air. TIME OF EXAM: 9:19 AM Correlation is made with prior chest from 11/30/2009. FINDINGS: Heart size normal. There are patchy infiltrates noted in both lung bases. No significant effusion is seen. Mid and upper lung maldonado are clear. There is no pneumothorax. IMPRESSION: Patchy bibasilar pulmonary infiltrates. Dictated on workstation # [id number] Dict: 03/09/21 0937 Trans: 03/09/21 0939 [id number] Interpreted by: FAISAL PASTOR MD Electronically signed by: NAME: DOYEN Argentina KURTZ [facility] REC#: [id number] PT STATUS: ADM IN : 1960 PHYSICIAN: ELINOR RAMSEY MD ADMIT DATE: 03/09/21/CSD Signed Date of Exam:03/09/21 CT ANGIO CHEST W PROCEDURE: CT angiography Chest. TECHNIQUE: After intravenous administration of contrast, thin section axial CT angiography of the chest was performed. 3D MIP reconstructions were made. All CT scans use one or more of the following dose optimizing techniques: automated exposure control, MA and/or KvP adjustment based on a patient size and exam type, or iterative reconstruction. INDICATION: Leg swelling. Right shoulder pain. Dyspnea. COMPARISON: Chest radiograph of 03/09/2021. FINDINGS: Vasculature: No pulmonary emboli. Pulmonary trunk is not dilated. Contrast does not opacify the aorta and therefore assessment for dissection is not possible. The aorta is normal in caliber. Heart and mediastinum: Visualized thyroid is normal. No supraclavicular, axillary, or intra-thoracic lymphadenopathy. Heart is enlarged with dilation of the left ventricle and left atrium. No pericardial effusion. Pleura: Large bilateral pleural effusions appear free flowing. Lungs and airway: No endoluminal lesion in the trachea or central bronchi. Intralobular thickening and patchy groundglass opacities are most indicative of pulmonary edema. Upper abdomen: Allowing for the phase of contrast, no acute abnormality in the upper abdomen is seen. Musculoskeletal: No concerning osseous lesion. IMPRESSION: 1. No pulmonary emboli. 2. Large pleural effusions with mild pulmonary edema is likely due to congestive heart failure. 3. Dilated left ventricle and left atrium. Severe coronary artery calcifications. Dictated by: Dictated on workstation # [id number] Dict: 03/09/21 1139 Trans: 03/09/21 1501 AS6 [id number] Interpreted by: KAEL BAUER MD Electronically signed by: KAEL BAUER MD 03/09/21 1501 NAME: DOYEN Argentina KURTZ [facility] REC#: [id number] PT STATUS: REG ER : 1960 PHYSICIAN: ELINOR RAMSEY MD ADMIT DATE: 03/09/21/ER Draft Date of Exam:03/09/21 US VENOUS LOWER EXT LT PROCEDURE: US left lower extremity venous. TECHNIQUE: Multiple real-time grayscale images were obtained over the left lower extremity in various projections. Additional duplex Doppler and color Doppler images were also obtained. INDICATION: Swelling and redness to left leg with elevated D-dimer. FINDINGS: Color Doppler imaging shows normal flow throughout the venous system of the left lower extremity. Calf compression shows normal augmentation of flow at the popliteal level with Doppler sampling. IMPRESSION: No evidence of venous thrombosis. Dictated on workstation # [id number] Dict: 03/09/21 1126 Trans: 03/09/21 1142 AS6 [id number] Interpreted by: CHARLEE BAUER MD Electronically signed by: Assessment/Plan Assessment/Plan (1) Elevated troponin Status: Acute Assessment & Plan: Cardiology consulted, appreciate recommendations. (2) Acute heart failure Status: Acute Assessment & Plan: BNP elevated, marked edema. Lasix, Cardiology consulted, appreciate recommendations. Qualifiers: Qualified Codes: I50.9 - Heart failure, unspecified (3) Hypertension Status: Chronic Qualifiers: Qualified Codes: I10 - Essential (primary) hypertension (4) Hyperlipidemia Status: Chronic (5) Diabetes mellitus Status: Chronic Qualifiers: (6) Fall on same level from slipping, tripping or stumbling Status: Acute (7) Cellulitis Status: Acute Assessment & Plan: Cefepime 03/10 will change to cefazolin, check arterial US of left leg Qualifiers: (8) DVT prophylaxis Status: Acute Assessment & Plan: Enoxaparin DANIELE SOMMER MD Mar 10, 2021 11:05
[2021-03-10] MEDS ORDERED: ceFAZolin 2 GM IV Premixed 50 ML IV SCH (11:15)
--- NOTE | 2021-03-10 12:01 | Progress Note - Cardiology ---
Cardiology SOAP Progress Note Subjective: Gen malaise and weakness Shortness of breath with mild exertion No cp or palp or syncope No n/v/d Persistent, bilat leg swelling Objective: I&O/Vital Signs 03/10/21 03/10/21 03/10/21 03/10/21 00:02 00:02 01:00 03:41 Temp 35.4 Pulse 98 103 Resp 20 B/P (MAP) 122/94 (103) Pulse Ox 99 O2 Delivery Room Air Room Air Room Air 03/10/21 03/10/21 03/10/21 03:59 07:00 08:00 Temp 36.3 36.5 Pulse 98 101 105 Resp 20 24 B/P (MAP) 148/103 (118) 137/90 (106) Pulse Ox 96 100 O2 Delivery Room Air Room Air 03/10/21 00:00 Intake Total 750 ml Output Total 1700 ml Balance -950 ml Weight (Pounds): 175 Weight (Calculated Kilograms): 79.711426 Constitutional: AAO x 3, well-developed, well-nourished Respiratory: No accessory muscle use, No respiratory distress; chest expansion is symmetric, chest is bilaterally symmetric, crackles (bi-basilar crackles) Cardiovascular: regular rate-rhythm, JVD, S1 and S2 Gastrointestional: No tender; soft, round, audible bowel sounds Extremities: other (bilat LE pitting edema from feet to knees) Neurologic/Psychiatric: other (Moves all limbs equally) Skin: warm/dry, other (See above. Weeping ulcers on the left medial foot and ankle) Results/Procedures: Labs Laboratory Tests 03/09/21 17:08: Glucometer 239H 03/09/21 20:13: Glucometer 151H 03/10/21 04:03: Sodium Level 139, Potassium Level 3.4L, Chloride Level 99, Carbon Dioxide Level 26, Anion Gap 14, Blood Urea Nitrogen 16, Creatinine 1.11, Estimat Glomerular Filtration Rate > 60, BUN/Creatinine Ratio 14, Glucose Level 61L, Calcium Level 9.2, Magnesium Level 1.9, Triglycerides Level 54, Cholesterol Level 163, LDL Cholesterol Direct 83, VLDL Cholesterol 11, HDL Cholesterol 71H 03/10/21 09:34: Glucometer 211H Laboratory Tests 03/09/21 07:54 03/10/21 04:03 A/P: Assessment: Acute on likley chronic CHF CAD: - reports h/o [address] Tam at [facility] in [place], [place] - most recent stent placement greater than 1 yr ago Minimal troponin elevation - NSTEMI vs Type 2 [place] secondary to acute, decompensated CHF HTN HLD H/O CVA approx 4 yrs ago - details unknown DM 2 Family h/o CAD (mother and father) Plan: Increase diuretics - add metolazone Continue ASA d/t known h/o CAD with stenting in the past Increase BB Replace electrolytes Monitor lab Echocardiogram to eval structure and function Request records from Dr. Tam at [facility] in [place], [place] - have not received yet ALBINO MORTON MD FACP FACC CCDS Mar 10, 2021 12:01
[2021-03-10 12:09] VITALS: BP 134/90
[2021-03-10] MEDS: ENOXAPARIN 40 MG/0.4 ML (LOVENOX) SYR SC SCH (13:27)
[2021-03-10] MEDS ORDERED: METOLAZONE 5 MG (ZAROXOLYN) TAB PO NR (14:45)
[2021-03-10] MEDS ORDERED: FUROSEMIDE 40 MG/4 ML INJ (LASIX) IVP NR (15:15)
--- NOTE | 2021-03-10 16:14 | Diagnostic Imaging Report ---
EXAM: Left lower extremity arterial Doppler. INDICATION: Unable to palpate pedal pulse Spectral and color-flow imaging of the arterial system of the left lower extremity was performed. There are no prior studies available for comparison. There is good arterial blood flow in the common femoral, superficial femoral and popliteal arteries. Triphasic waveforms were evident in these segments of the arterial system. However, the images of the anterior and posterior tibial just show that the waveform has changed to monophasic. There is also diminished velocities within the anterior and posterior tibial arteries. I am concerned that the diminished arterial blood flow to the left lower extremity may be secondary to a hemodynamically significant stenosis involving the trifurcation. If further evaluation is desired, then CTA of the aorta with bilateral runoffs would be recommended. IMPRESSION: There does seem to be diminished arterial blood flow to the left lower extremity. This may be secondary to trifurcation disease. Recommendations as above. Dictated by: Dictated on workstation # [id number]
[2021-03-10] MEDS ORDERED: KCL 20 MEQ TAB (K-DUR) PO SCH (21:00)
[2021-03-10] MEDS ORDERED: POTASSIUM BICARB 20 MEQ (EFFER-K) TABLET PO SCH (21:00)
[2021-03-10] MEDS ORDERED: AMITRIPTYLINE 10 MG (ELAVIL) TAB PO SCH (21:00)
[2021-03-10] MEDS ORDERED: CYCLOBENZAPRINE 10 MG (FLEXERIL) TAB PO SCH (21:00)
[2021-03-11] MEDS ORDERED: ROSU40TA23 PO (04:09)
[2021-03-11] MEDS ORDERED: METOLAZONE 5 MG (ZAROXOLYN) TAB PO SCH (09:00)
[2021-03-11] MEDS ORDERED: meTOproloL SUCCINATE 50 MG (TOPROL XL) TAB PO SCH (09:00)
== END 2021-03-10 16:20 | disposition left against medical advice (07) | DRG 281 ==
LOC: EDUNIT# 07:44 → ER 07:46 → CSD 11:43
PROVIDERS: ADMIT Family Medicine; ATTEND Family Medicine
DX: I11.0 Hypertensive heart disease with heart failure (principal); I21.A1 Myocardial infarction type 2; L97.429 Non-pressure chronic ulcer of left heel and midfoot with unspecified severity; L03.116 Cellulitis of left lower limb; E78.5 Hyperlipidemia, unspecified; Z20.822 Contact with and (suspected) exposure to COVID-19; Z86.73 Personal history of transient ischemic attack (TIA), and cerebral infarction without residual deficits; E11.9 Type 2 diabetes mellitus without complications; Z82.49 Family history of ischemic heart disease and other diseases of the circulatory system; I25.10 Atherosclerotic heart disease of native coronary artery without angina pectoris; Z95.5 Presence of coronary angioplasty implant and graft; Z79.4 Long term (current) use of insulin; I25.2 Old myocardial infarction; E11.621 Type 2 diabetes mellitus with foot ulcer; W01.0XXA Fall on same level from slipping, tripping and stumbling without subsequent striking against object, initial encounter
CPT/HCPCS: 36415; 71045; 71275; 73630; 80048; 80053; 80061; 81000; 82947; 83605; 83735; 83874; 83880; 84484; 85025; 85379; 85610; 85730; 86141; 87040; 87088; 87636; 93005; 93041; 93306; 93926

== ENCOUNTER 2021-03-10 19:19 | Inpatient (IN) | payer MEDICARE, MEDICAID ==
[~2021-03-10] VITALS: Ht 170 cm; Wt 64.1 kg
[~2021-03-10 19:19] MED LIST changes: +ALBU18HF2 INH; +AMT10T PO; +CETI10TA17 PO; +CYCL5TAB PO; +FURO40TA4 PO; +HYDR50TA6 PO; +INSU100I34 SC; +LINA72CA PO; +MONT10TA32 PO; +POTA20TA8 PO; +TMSL.4C PO; +TRIA1TAB5 PO
--- NOTE | 2021-03-10 19:34 | ED Respiratory ---
General Source: patient Exam Limitations: no limitations History of Present Illness Date Seen by Provider: Mar 10, 2021 Time Seen by Provider: 19:19 Initial Comments Patient presents ER by EMS from home with chief complaint of continuing to have increasing swelling around his legs and shortness of air and occasional cough. No fevers or chills. He says he left AGAINST MEDICAL ADVICE this afternoon at about 1600 from the floor where Dr. Zuniga was treating him for his heart failure because it was taking too long and he had to get home and take care of his girlfriend. He is the primary caregiver for her. EMS states the house was in advanced state of disrepair, with animals and insects all over the home. Patient denies any nausea chest pain dysuria diarrhea or constipation. He has a history of 13 stents. EMS had initiated a liter of fluids on route because his blood pressure is 102/60. His primary care respiratory services manager is Dr. Tam at [facility]. He was being treated for acute on chronic congestive heart failure. He had a minimal troponin elevation likely due to acutely decompensated heart failure, hypertension, hyperlipidemia, stroke 4 years ago, diabetes type 2 and a strong family history of coronary disease in his mother and father. Echocardiogram from yesterday by Dr. Zuniga demonstrates EF of 30 to 35% with moderate diffuse hypokinesis and normal wall thickness. CT angio of the chest from yesterday demonstrates no pulmonary emboli. He was being treated with cefepime for cellulitis of the bilateral lower extremities. Allergies and Home Medications Allergies Coded Allergies: NKANo Known Allergies (Verified Allergy, Unknown, 12/27/07) Home Medications Albuterol Sulfate 18 Gm Hfa.aer.ad, 2 PUFF INH Q6H PRN for SHORTNESS OF BREATH, (Reported) Amitriptyline HCl 10 Mg Tablet, 10 MG PO HS, (Reported) Cetirizine HCl 10 Mg Tablet, 10 MG PO DAILY, (Reported) Cyclobenzaprine HCl 5 Mg Tablet, 5 MG PO HS, (Reported) Furosemide 40 Mg Tablet, 40 MG PO DAILY, (Reported) Hydrochlorothiazide 50 Mg Tablet, 50 MG PO DAILY, (Reported) Insulin Glargine,Hum.rec.anlog 100 Unit/1 Ml Insuln.pen, 45 UNITS SC DAILY, (Reported) Linaclotide 72 Mcg Capsule, 72 MCG PO DAILY, (Reported) Montelukast Sodium 10 Mg Tablet, 10 MG PO DAILY, (Reported) Potassium Chloride 20 Meq Tab.er.prt, 20 MEQ PO DAILY, (Reported) Tamsulosin HCl 0.4 Mg Cap, 0.4 MG PO DAILY, (Reported) Triamterene/Hydrochlorothiazid 1 Each Tablet, 1 EA PO DAILY, (Reported) Patient Home Medication List Home Medication List Reviewed: Yes Review of Systems Review of Systems Constitutional: No chills, No diaphoresis EENTM: No ear discharge, No ear pain Respiratory: No cough, No short of breath Cardiovascular: No palpitations Gastrointestinal: No abdominal pain, No nausea, No vomiting Genitourinary: No discharge, No dysuria Musculoskeletal: No back pain, No joint pain All Other Systems Reviewed Negative Unless Noted: Yes Past Cdjazde-Kreiyx-Rfgjma Hx Patient Social History Alcohol Use: Denies Use Drug of Choice: Denies Smoking Status: Never a Smoker 2nd Hand Smoke Exposure: No Recent Hopitalizations: Yes Immunizations Up To Date Date of Influenza Vaccine: Jun 16, 2014 Seasonal Allergies Seasonal Allergies: No Past Medical History Surgeries: Yes (R KNEE SX) Cardiac, Coronary Stent, Orthopedic Respiratory: No Cardiac: Yes Coronary Artery Disease, Heart Attack, Hypertension Neurological: Yes Stroke, TIA Reproductive Disorders: No Genitourinary: No Gastrointestinal: No Musculoskeletal: Yes Arthritis Endocrine: Yes Diabetes, Insulin dep Hearing Impairment: Hard of Hearing Cancer: No Psychosocial: No Integumentary: No Blood Disorders: Yes Family Medical History FH: heart disease 19 FATHER 19 MOTHER Heart Disease, Stroke Physical Exam Vital Signs - First Documented 03/10/21 19:21 Temp 36.3 Pulse 100 Resp 27 B/P (MAP) 97/62 (74) Pulse Ox 94 O2 Delivery Room Air Capillary Refill : Height: 5'8" Weight: 175lbs. oz. 79.792777ei; 20.00 BMI Method:Stated General Appearance: no apparent distress, thin Eyes: Bilateral Eye Normal Inspection, Bilateral Eye PERRL, Bilateral Eye EOMI HEENT: PERRL/EOMI, normal ENT inspection, pharynx normal (Mucosa mildly dry) Neck: full range of motion, supple, normal inspection (Negative for JVD) Respiratory: no respiratory distress, no accessory muscle use, rhonchi (Mild bilateral) Cardiovascular: normal peripheral pulses, regular rate, rhythm Gastrointestinal: normal bowel sounds, non tender, soft Extremities: normal range of motion, non-tender, pedal edema (2+ bilateral l ower extremity edema) Neurologic/Psychiatric: no motor/sensory deficits, alert, normal mood/affect, oriented x 3 Skin: normal color, warm/dry Progress/Results/Core Measures Suspected Sepsis SIRS Temperature: Pulse: Respiratory Rate: Laboratory Tests 03/10/21 19:22: White Blood Count 10.6 Blood Pressure / Mean: Laboratory Tests 03/10/21 19:22: Creatinine 1.14, Platelet Count 362, Total Bilirubin 0.6 Results/Orders Lab Results Laboratory Tests Test 03/10/21 19:22 Range/Units White Blood Count 10.6 4.3-11.0 10^3/uL Red Blood Count 4.68 4.30-5.52 10^6/uL Hemoglobin 12.3 L 13.3-17.7 g/dL Hematocrit 38 L 40-54 % Mean Corpuscular Volume 82 80-99 fL Mean Corpuscular Hemoglobin 26 25-34 pg Mean Corpuscular Hemoglobin Concent 32 32-36 g/dL Red Cell Distribution Width 15.9 H 10.0-14.5 % Platelet Count 362 130-400 10^3/uL Mean Platelet Volume 9.8 9.0-12.2 fL Immature Granulocyte % (Auto) 0 % Neutrophils (%) (Auto) 84 H 42-75 % Lymphocytes (%) (Auto) 9 L 12-44 % Monocytes (%) (Auto) 6 0-12 % Eosinophils (%) (Auto) 1 0-10 % Basophils (%) (Auto) 1 0-10 % Neutrophils # (Auto) 8.9 H 1.8-7.8 10^3/uL Lymphocytes # (Auto) 0.9 L 1.0-4.0 10^3/uL Monocytes # (Auto) 0.6 0.0-1.0 10^3/uL Eosinophils # (Auto) 0.1 0.0-0.3 10^3/uL Basophils # (Auto) 0.1 0.0-0.1 10^3/uL Immature Granulocyte # (Auto) 0.0 0.0-0.1 10^3/uL Sodium Level 138 135-145 MMOL/L Potassium Level 3.8 3.6-5.0 MMOL/L Chloride Level 97 L 98-107 MMOL/L Carbon Dioxide Level 29 21-32 MMOL/L Anion Gap 12 5-14 MMOL/L Blood Urea Nitrogen 20 H 7-18 MG/DL Creatinine 1.14 0.60-1.30 MG/DL Estimat Glomerular Filtration Rate > 60 BUN/Creatinine Ratio 18 Glucose Level 77 70-105 MG/DL Calcium Level 9.5 8.5-10.1 MG/DL Corrected Calcium 10.5 H 8.5-10.1 MG/DL Total Bilirubin 0.6 0.1-1.0 MG/DL Aspartate Amino Transf (AST/SGOT) 36 H 5-34 U/L Alanine Aminotransferase (ALT/SGPT) 38 0-55 U/L Alkaline Phosphatase 171 H 40-136 U/L C-Reactive Protein High Sensitivity 2.37 H 0.00-0.50 MG/DL B-Type Natriuretic Peptide 2028.9 H <100.0 PG/ML Total Protein 6.0 L 6.4-8.2 GM/DL Albumin 2.8 L 3.2-4.5 GM/DL My Orders Orders - MARCO ANTONIO BONILLA Ua Culture If Indicated (03/10/21 19:27) Drug Screen Stat (Urine) (03/10/21 19:27) Cbc With Automated Diff (03/10/21 19:27) Comprehensive Metabolic Panel (03/10/21 19:27) Hs C Reactive Protein (03/10/21 19:27) BNP (03/10/21 19:27) Chest 1 View, Ap/Pa Only (03/10/21 19:27) Ekg Tracing (03/10/21 19:28) Continuous Ekg Monitoring (03/10/21 19:28) Furosemide Injection (Lasix Injection) (03/10/21 20:45) Vital Signs/I&O 03/10/21 19:21 Temp 36.3 Pulse 100 Resp 27 B/P (MAP) 97/62 (74) Pulse Ox 94 O2 Delivery Room Air Capillary Refill : Progress Note : Time: 19:35 Progress Note Plan to get some labs reestablish and stop the IV fluids. Legs have 2+ pitting mild erythema. Aseptic vital signs. Is not hypoxic. ECG Initial ECG Impression Date: Mar 10, 2021 Initial ECG Impression Time: 19:51 Initial ECG Rate: 100 Initial ECG Rhythm: S.Tach Initial ECG Intervals: QT (485) Initial ECG Impression: Normal, Nonspecific Changes Initial ECG Comparisson: Unchanged Comment Sinus tachycardia with right bundle branch block unchanged from previous EKG. Diagnostic Imaging Diagonstic Imaging: Xray Plain Films/CT/US/NM/MRI: chest Comments [facility] [employer] [facility] [place], [place] NAME: DOYEN Argentina KURTZ REC#: [id number] PT STATUS: REG ER : 1960 PHYSICIAN: MARCO ANTONIO BONILLA MD ADMIT DATE: 03/10/21/ER Signed Date of Exam:03/10/21 CHEST 1 VIEW, AP/PA ONLY Indication: Cough, shortness of air, CHF Examination: Chest 03/10/2021 Comparison: 03/09/2021 Findings: There are bibasilar infiltrates right greater than left with right pleural effusion. There are findings of edema throughout both lungs. Pulmonary vascular congestion noted. There is no pneumothorax. Heart is stable. Impression: 1. Persistent bilateral infiltrates and effusion right greater than left. 2. Pulmonary edema. Dictated by: Dictated on workstation # [id number] Dict: 03/10/212016 Trans: 03/10/212021 CV [id number] Interpreted by: ASIF LOCKWOOD MD Electronically signed by: ASIF LOCKWOOD MD 03/10/212021 Reviewed: Reviewed by Me Departure Communication (Admissions) Time/Spoke to Admitting Phy: 20:45 Discussed the case with Dr. March and he agrees to take the patient on with Lasix 40 mg IV twice daily and appropriate potassium. Impression Primary Impression: Acute heart failure Qualified Codes: I50.21 - Acute systolic (congestive) heart failure Disposition: ADMITTED INPATIENT Condition: Stable Admissions Decision to Admit Reason: Admit from ER (General) Decision to Admit/Date: Mar 10, 2021 Time/Decision to Admit Time: 20:45 Departure-Patient Inst. Referrals: NO,LOCAL PHYSICIAN (PCP/Family) Primary Care Physician MARCO ANTONIO BONILLA Mar 10, 2021 19:33
[2021-03-10 19:38] LABS: BASOPHILS # (AUTO) 0.1 10^3/uL (0.0-0.1); BASOPHILS % (AUTO) 1 % (0-10); EOSINOPHILS # (AUTO) 0.1 10^3/uL (0.0-0.3); EOSINOPHILS % (AUTO) 1 % (0-10); HEMATOCRIT 38 % (40-54); HEMOGLOBIN 12.3 g/dL (13.3-17.7); LYMPHOCYTES # (AUTO) 0.9 10^3/uL (1.0-4.0); LYMPHOCYTES % (AUTO) 9 % (12-44); MEAN CORPUSCULAR HEMOGLOBIN 26 pg (25-34); MEAN CORPUSCULAR HGB CONC 32 g/dL (32-36); MEAN CORPUSCULAR VOLUME 82 fL (80-99); MEAN PLATELET VOLUME 9.8 fL (9.0-12.2); MONOCYTES # (AUTO) 0.6 10^3/uL (0.0-1.0); MONOCYTES % (AUTO) 6 % (0-12); NEUTROPHILS # (AUTO) 8.9 10^3/uL (1.8-7.8); NEUTROPHILS % (AUTO) 84 % (42-75); PLATELET COUNT 362 10^3/uL (130-400); WHITE BLOOD COUNT 10.6 10^3/uL (4.3-11.0)
[2021-03-10 20:01] LABS: ALANINE AMINOTRANSFERASE 38 U/L (0-55); ALBUMIN 2.8 GM/DL (3.2-4.5); ALKALINE PHOSPHATASE 171 U/L (40-136); BILIRUBIN,TOTAL 0.6 MG/DL (0.1-1.0); BUN/CREATININE RATIO 18; CALCIUM 9.5 MG/DL (8.5-10.1); CARBON DIOXIDE 29 MMOL/L (21-32); CHLORIDE 97 MMOL/L (98-107); CREATININE SERUM 1.14 MG/DL (0.60-1.30); GFR ESTIMATED > 60; GLUCOSE 77 MG/DL (70-105); POTASSIUM 3.8 MMOL/L (3.6-5.0); SODIUM 138 MMOL/L (135-145)
--- NOTE | 2021-03-10 20:20 | Diagnostic Imaging Report ---
Indication: Cough, shortness of air, CHF Examination: Chest 03/10/2021 Comparison: 03/09/2021 Findings: There are bibasilar infiltrates right greater than left with right pleural effusion. There are findings of edema throughout both lungs. Pulmonary vascular congestion noted. There is no pneumothorax. Heart is stable. Impression: 1. Persistent bilateral infiltrates and effusion right greater than left. 2. Pulmonary edema. Dictated by: Dictated on workstation # [id number]
[2021-03-10] MEDS ORDERED: FUROSEMIDE 40 MG/4 ML INJ (LASIX) IVP ONE (20:45)
[2021-03-10 21:20] LABS: BILIRUBIN,URINE NEGATIVE (NEGATIVE); CLARITY,URINE CLEAR; COLOR,URINE YELLOW; GLUCOSE, URINE (UA) NEGATIVE (NEGATIVE); KETONES,URINE NEGATIVE (NEGATIVE); LEUKOCYTE ESTERASE ,URINE NEGATIVE (NEGATIVE); NITRITE,URINE NEGATIVE (NEGATIVE); PROTEIN,URINE NEGATIVE (NEGATIVE)
[2021-03-10 21:40] VITALS: BP 115/78
[2021-03-10 21:46] LABS: AMPHETAMINE SCREEN, URINE NEGATIVE (NEGATIVE); BARBITURATE SCREEN URINE NEGATIVE (NEGATIVE); BENZODIAZEPINES SCREEN URINE NEGATIVE (NEGATIVE); CANNABINOID SCREEN, URINE NEGATIVE (NEGATIVE); COCAINE SCREEN URINE NEGATIVE (NEGATIVE); METHADONE STAT NEGATIVE (NEGATIVE); METHAMPHETAMINE SCREEN URINE S NEGATIVE (NEGATIVE); OPIATE SCREEN URINE POSITIVE (NEGATIVE); OXYCODONE STAT NEGATIVE (NEGATIVE); PROPOXYPHENE STAT NEGATIVE (NEGATIVE); TRICYCLIC ANTIDEPRESSANTS SCRE NEGATIVE (NEGATIVE)
[2021-03-10 22:12] LABS: BACTERIA,URINE TRACE /HPF; SQUAMOUS EPITHELIAL CELL,UR RARE /HPF; WBC,URINE RARE /HPF
[2021-03-10] MEDS ORDERED: ONDANSETRON 4 MG/2 ML (SDV) Z0FRAN IV PRN (22:15)
[2021-03-10] MEDS ORDERED: CATHETER FLUSH 10 ML SYR IV PRN (22:30)
[2021-03-10] MEDS: AMITRIPTYLINE 10 MG (ELAVIL) TAB PO SCH (22:36)
[2021-03-10] MEDS: ACETAMINOPHEN 325 MG TABLET PO PRN (22:48)
[2021-03-10 23:53] VITALS: BP 121/79
[2021-03-11 00:26] VITALS: BP 97/82
[2021-03-11] MEDS ORDERED: RT-ALBUTEROL SULF 2.5 MG/3 ML PRE-MIX VIAL INH PRN (00:45)
[2021-03-11] MEDS ORDERED: GLUCAGON EMERGENCY 1 MG/KIT ONE (03:54)
[2021-03-11] MEDS ORDERED: ROSU40TA23 PO (04:09)
[2021-03-11 05:00] VITALS: BP 137/84
[2021-03-11] MEDS ORDERED: DEXTROSE 50% 50 ML (IMS) SYR IV ONE ×2 (05:00→05:30)
[2021-03-11] MEDS ORDERED: DEXTROSE 50% 50 ML (IMS) SYR IV PRN (05:30)
[2021-03-11] MEDS: CATHETER FLUSH 10 ML SYR IV SCH ×3 (05:32→22:54)
[2021-03-11] MEDS: inSUlin ASPART (NovoLOG) 1 UNIT/0.01 ML (CHARGE PER UNIT) SC SCH ×4 (05:33→20:53)
[2021-03-11 05:53] LABS: BASOPHILS # (AUTO) 0.1 10^3/uL (0.0-0.1); BASOPHILS % (AUTO) 1 % (0-10); EOSINOPHILS # (AUTO) 0.1 10^3/uL (0.0-0.3); EOSINOPHILS % (AUTO) 1 % (0-10); HEMATOCRIT 41 % (40-54); HEMOGLOBIN 12.8 g/dL (13.3-17.7); LYMPHOCYTES % (AUTO) 11 % (12-44); MEAN CORPUSCULAR HEMOGLOBIN 26 pg (25-34); MEAN CORPUSCULAR HGB CONC 32 g/dL (32-36); MEAN CORPUSCULAR VOLUME 82 fL (80-99); MEAN PLATELET VOLUME 9.9 fL (9.0-12.2); MONOCYTES # (AUTO) 0.6 10^3/uL (0.0-1.0); MONOCYTES % (AUTO) 7 % (0-12); NEUTROPHILS # (AUTO) 7.2 10^3/uL (1.8-7.8); NEUTROPHILS % (AUTO) 80 % (42-75); PLATELET COUNT 337 10^3/uL (130-400)
[2021-03-11 06:05] LABS: CHLORIDE 98 MMOL/L (98-107); SODIUM 141 MMOL/L (135-145)
[2021-03-11 06:07] LABS: CALCIUM 9.6 MG/DL (8.5-10.1)
[2021-03-11 06:09] LABS: CARBON DIOXIDE 28 MMOL/L (21-32)
[2021-03-11 06:11] LABS: CREATININE SERUM 1.16 MG/DL (0.60-1.30); GFR ESTIMATED > 60
[2021-03-11 06:12] LABS: BUN/CREATININE RATIO 16
[2021-03-11 06:23] LABS: GLUCOSE 56 MG/DL (70-105)
[2021-03-11] MEDS: ACETAMINOPHEN 325 MG TABLET PO PRN ×2 (06:37→21:27)
[2021-03-11 08:00] VITALS: BP 115/59
--- NOTE | 2021-03-11 08:24 | History & Physical-Hospitalist ---
History of Present Illness HPI/Chief Complaint Patient presents ER by EMS from home with chief complaint of continuing to have increasing swelling around his legs and shortness of air and occasional cough. No fevers or chills. He says he left AGAINST MEDICAL ADVICE this afternoon at about 1600 from the floor where Dr. Zuniga was treating him for his heart failure because it was taking too long and he had to get home and take care of his girlfriend. He is the primary caregiver for her. EMS states the house was in advanced state of disrepair, with animals and insects all over the home. Patient denies any nausea chest pain dysuria diarrhea or constipation. He has a history of 13 stents. EMS had initiated a liter of fluids on route because his blood pressure is 102/60. His primary care corrugated fastener driver is Dr. Tam at [facility]. He was being treated for acute on chronic congestive heart failure. He had a minimal troponin elevation likely due to acutely decompensated heart failure, hypertension, hyperlipidemia, stroke 4 years ago, diabetes type 2 and a strong family history of coronary disease in his mother and father. Echocardiogram from yesterday by Dr. Zuniga demonstrates EF of 30 to 35% with moderate diffuse hypokinesis and normal wall thickness. CT angio of the chest from yesterday demonstrates no pulmonary emboli. He was being treated with cefepime for cellulitis of the bilateral lower extremity.Patient developed hypoglycemia overnight low at 15 he did wake up with an amp of D50 with normalization of his blood sugar. He was sleeping soundly with a blood sugar of little over 100 wishing to be left alone giving no history not answering questions. He was not agitated and did not appear to be confused. Nursing staff did bring an insect in a cup to me that has the appearance of an adult female louse with history that he had been bathed and there a fair number of insects crawling on him. He had no evidence for bites and I did not see any nits. He did not appear to be in acute distress. Date Seen 03/11/21 Time Seen by a Provider: 07:30 Attending Physician Glenda Rooney MD PCP No,Local Physician Referring Physician Date of Admission Mar 10, 2021 at 20:45 Home Medications & Allergies Home Medications Reviewed patient Home Medication Reconciliation performed by pharmacy medication reconciliations smt technician and/or nursing. Patients Allergies have been reviewed. Allergies Allergies Coded Allergies NKANo Known Allergies (Verified Allergy, Unknown, 4/12/08) Past Mbmrfci-Swmwfz-Uypsbq Hx Patient Social History Smoking Status: Never a Smoker Substance use?: Unable to obtain Alcohol Use?: Unable to obtain Pt feels they are or have been: Unable to obtain Immunizations Up To Date Date of Influenza Vaccine: Jun 16, 2014 Tetanus Booster (TDap): Unknown Seasonal Allergies Seasonal Allergies: No Current Status Advance Directives: Unable to obtain Communicates: Verbally Primary Language: Zimbabwean Preferred Spoken Language: Zimbabwean Is interpretation needed?: No Sensory deficits: Vision impairment, Hearing impairment Past Medical History Surgeries: Cardiac, Coronary Stent, Orthopedic Coronary Artery Disease, Heart Attack, Hypertension Stroke, TIA Arthritis Diabetes, Insulin dep Hearing Impairment: Hard of Hearing Blood Disorders: Yes PMHx Heart disease Diabetes HTN HLD SurgHx: Denies Family Medical History FH: heart disease 19 FATHER 19 MOTHER Heart Disease, Stroke Review of Systems Constitutional: see HPI Physical Exam Physical Exam Vital Signs Vital Signs - First Documented 03/10/21 03/11/21 19:21 00:26 Temp 36.3 Pulse 100 Resp 27 B/P (MAP) 97/62 (74) Pulse Ox 94 O2 Delivery Room Air FiO2 21 Capillary Refill : Less Than 3 Seconds Height, Weight, BMI Height: 5'8" Weight: 175lbs. oz. 79.777886px; 22.17 BMI Method:Stated General Appearance: No Apparent Distress, Chronically ill Respiratory: No Accessory Muscle Use, No Respiratory Distress, Other (Mild expiratory wheeze with basilar rales) Cardiovascular: Regular Rate, Rhythm, Other (Murmur not noted but difficult to appreciate over respiratory sounds.) Gastrointestinal: Normal Bowel Sounds, No Organomegaly, No Pulsatile Mass, Non Tender, Soft Extremity: Other (2+ edema to the lower tibia mild erythema predominantly of the upper foot and lower tibia more medially no reaction to palpati) Results Results/Procedures Labs Laboratory Tests 03/10/21 19:22 03/11/21 05:35 Patient resulted labs reviewed. Assessment/Plan Admission Diagnosis 1. Acute on chronic systolic heart failure with underlying dilated cardio myopathy aggravated by noncompliance continue IV diuretics. 2. Favor venous insufficiency related dermatitis aggravated by right heart failure caused by left heart failure we will hold antibiotics for now. 3. Contact isolation due to likely lice infestation. Admission Status: Inpatient Order (span 2 midnights) Reason for Inpatient Admission: See admission diagnosis Critical Care Critically Ill Patient GLENDA ROONEY MD Mar 11, 2021 08:24
[2021-03-11] MEDS: FUROSEMIDE 40 MG/4 ML INJ (LASIX) IV SCH ×2 (08:26→16:42)
[2021-03-11] MEDS: KCL 20 MEQ TAB (K-DUR) PO SCH ×2 (08:26→18:07)
[2021-03-11 12:00] VITALS: BP 128/83
[2021-03-11 16:00] VITALS: BP 115/73
[2021-03-11] MEDS: TAMSULOSIN 0.4 MG (FLOMAX) CAP PO SCH ×2 (18:07→18:13)
[2021-03-11 19:38] VITALS: BP 116/64
[2021-03-11] MEDS: AMITRIPTYLINE 10 MG (ELAVIL) TAB PO SCH (20:48)
[2021-03-11] MEDS ORDERED: GABAPENTIN 300 MG (NEURONTIN) CAP PO PRN (22:45)
[2021-03-12] VITALS: BP 123/77
[2021-03-12 03:13] VITALS: BP 111/66
[2021-03-12] MEDS: CATHETER FLUSH 10 ML SYR IV SCH ×3 (05:46→21:14)
[2021-03-12] MEDS: inSUlin ASPART (NovoLOG) 1 UNIT/0.01 ML (CHARGE PER UNIT) SC SCH ×4 (06:19→21:14)
[2021-03-12] MEDS: FUROSEMIDE 40 MG/4 ML INJ (LASIX) IV SCH ×2 (07:30→16:35)
[2021-03-12] MEDS: KCL 20 MEQ TAB (K-DUR) PO SCH ×3 (07:30→21:14)
[2021-03-12 08:04] VITALS: BP 113/76
--- NOTE | 2021-03-12 11:46 | Progress Note - Hospitalist ---
Subjective HPI/CC On Admission Date Seen by Provider: Mar 12, 2021 Time Seen by Provider: 07:45 Patient presents ER by EMS from home with chief complaint of continuing to have increasing swelling around his legs and shortness of air and occasional cough. No fevers or chills. He says he left AGAINST MEDICAL ADVICE this afternoon at about 1600 from the floor where Dr. Zuniga was treating him for his heart failure because it was taking too long and he had to get home and take care of his girlfriend. He is the primary caregiver for her. EMS states the house was in advanced state of disrepair, with animals and insects all over the home. Patient denies any nausea chest pain dysuria diarrhea or constipation. He has a history of 13 stents. EMS had initiated a liter of fluids on route because his blood pressure is 102/60. His primary care temperature regulator pyrometer is Dr. Tam at [facility]. He was being treated for acute on chronic congestive heart failure. He had a minimal troponin elevation likely due to acutely decompensated heart failure, hypertension, hyperlipidemia, stroke 4 years ago, diabetes type 2 and a strong family history of coronary disease in his mother and father. Echocardiogram from yesterday by Dr. Zuniga demonstrates EF of 30 to 35% with moderate diffuse hypokinesis and normal wall thickness. CT angio of the chest f rom yesterday demonstrates no pulmonary emboli. He was being treated with cefepime for cellulitis of the bilateral lower extremity.Patient developed hypoglycemia overnight low at 15 he did wake up with an amp of D50 with normalization of his blood sugar. He was sleeping soundly with a blood sugar of little over 100 wishing to be left alone giving no history not answering questions. He was not agitated and did not appear to be confused. Nursing staff did bring an insect in a cup to me that has the appearance of an adult female louse with history that he had been bathed and there a fair number of insects crawling on him. He had no evidence for bites and I did not see any nits. He did not appear to be in acute distress. Subjective/Events-last exam Patient more alert feeling better reported cramping sensation in his right ankle resolved after gabapentin last night denies chills fever or pain currently. Objective Exam Vital Signs Vital Signs Date Time Temp Pulse Resp B/P (MAP) Pulse Ox O2 Delivery O2 Flow Rate FiO2 03/12/21 08:04 36.2 105 20 113/76 (88) 100 Room Air 03/11/21 00:26 21 Capillary Refill : Less Than 3 Seconds General Appearance: No Apparent Distress Respiratory: No Accessory Muscle Use, No Respiratory Distress, Other (Rales in the bases improved from yesterday no wheezing good air movement.) Cardiovascular: Regular Rate, Rhythm, Gallop/S3 Extremity: Other (Less erythema right lateral foot very shallow ulceration nontender to touch lesser degree of erythema left foot no ulceration continue to monitor) Results/Procedures Lab Patient resulted labs reviewed. Assessment/Plan Assessment and Plan Assess & Plan/Chief Complaint 1. Acute on chronic systolic heart failure with underlying dilated cardiomyopathy aggravated by noncompliance continue IV diuretics.Condition significantly improved from yesterday. 2. Favor venous insufficiency related dermatitis aggravated by right heart failure caused by left heart failure Considering frailty and blood sugar elevation compatible with type 2 diabetes will initiate cephalexin p.o. 3. Patient should be ready for half-way transfer which she is agreeable to when bed available hopefully tomorrow. 4. Hypokalemia we will replace orally repeat BMP in the morning. Critical Care Critically Ill Patient GLENDA ROONEY MD Mar 12, 2021 11:46
[2021-03-12 12:00] VITALS: BP 120/81
[2021-03-12] MEDS ORDERED: KCL 20 MEQ TAB (K-DUR) PO ONE (12:00)
[2021-03-12] MEDS: CEPHALEXIN 250 MG (KEFLEX) CAP PO SCH ×3 (12:39→21:14)
[2021-03-12 16:00] VITALS: BP 105/69
[2021-03-12] MEDS: TAMSULOSIN 0.4 MG (FLOMAX) CAP PO SCH (16:36)
[2021-03-12 20:15] VITALS: BP 116/73
[2021-03-12] MEDS: AMITRIPTYLINE 10 MG (ELAVIL) TAB PO SCH (21:14)
[2021-03-13] VITALS (16 sets, daily range): BP systolic 99–146; BP diastolic 61–108
[2021-03-13 04:44] LABS: BASOPHILS # (AUTO) 0.1 10^3/uL (0.0-0.1); BASOPHILS % (AUTO) 1 % (0-10); EOSINOPHILS # (AUTO) 0.2 10^3/uL (0.0-0.3); EOSINOPHILS % (AUTO) 2 % (0-10); HEMATOCRIT 35 % (40-54); HEMOGLOBIN 10.9 g/dL (13.3-17.7); LYMPHOCYTES # (AUTO) 1.4 10^3/uL (1.0-4.0); LYMPHOCYTES % (AUTO) 14 % (12-44); MEAN CORPUSCULAR HEMOGLOBIN 26 pg (25-34); MEAN CORPUSCULAR HGB CONC 31 g/dL (32-36); MEAN CORPUSCULAR VOLUME 82 fL (80-99); MEAN PLATELET VOLUME 9.7 fL (9.0-12.2); MONOCYTES # (AUTO) 0.7 10^3/uL (0.0-1.0); MONOCYTES % (AUTO) 7 % (0-12); NEUTROPHILS # (AUTO) 7.3 10^3/uL (1.8-7.8); NEUTROPHILS % (AUTO) 76 % (42-75); PLATELET COUNT 303 10^3/uL (130-400); WHITE BLOOD COUNT 9.7 10^3/uL (4.3-11.0)
[2021-03-13 04:55] LABS: ALBUMIN 2.7 GM/DL (3.2-4.5); CHLORIDE 97 MMOL/L (98-107); SODIUM 137 MMOL/L (135-145)
[2021-03-13 04:56] LABS: CALCIUM 8.7 MG/DL (8.5-10.1)
[2021-03-13 04:57] LABS: GLUCOSE 183 MG/DL (70-105); TOTAL PROTEIN 5.3 GM/DL (6.4-8.2)
[2021-03-13 04:58] LABS: CARBON DIOXIDE 28 MMOL/L (21-32)
[2021-03-13 04:59] LABS: BILIRUBIN,TOTAL 0.8 MG/DL (0.1-1.0)
[2021-03-13 05:01] LABS: ALKALINE PHOSPHATASE 127 U/L (40-136); CREATININE SERUM 1.22 MG/DL (0.60-1.30); GFR ESTIMATED > 60
[2021-03-13 05:02] LABS: BUN/CREATININE RATIO 20
[2021-03-13 05:04] LABS: ALANINE AMINOTRANSFERASE 21 U/L (0-55)
[2021-03-13] MEDS: inSUlin ASPART (NovoLOG) 1 UNIT/0.01 ML (CHARGE PER UNIT) SC SCH ×4 (05:29→20:42)
[2021-03-13] MEDS: CATHETER FLUSH 10 ML SYR IV SCH ×3 (06:01→20:43)
--- NOTE | 2021-03-13 06:35 | Progress Note - Hospitalist ---
Subjective HPI/CC On Admission Date Seen by Provider: Mar 13, 2021 Time Seen by Provider: 10:00 Patient presents ER by EMS from home with chief complaint of continuing to have increasing swelling around his legs and shortness of air and occasional cough. No fevers or chills. He says he left AGAINST MEDICAL ADVICE this afternoon at about 1600 from the floor where Dr. Zuniga was treating him for his heart failure because it was taking too long and he had to get home and take care of his girlfriend. He is the primary caregiver for her. EMS states the house was in advanced state of disrepair, with animals and insects all over the home. Patient denies any nausea chest pain dysuria diarrhea or constipation. He has a history of 13 stents. EMS had initiated a liter of fluids on route because his blood pressure is 102/60. His primary care implementation engineer is Dr. Tam at [facility]. He was being treated for acute on chronic congestive heart failure. He had a minimal troponin elevation likely due to acutely decompensated heart failure, hypertension, hyperlipidemia, stroke 4 years ago, diabetes type 2 and a strong family history of coronary disease in his mother and father. Echocardiogram from yesterday by Dr. Zuniga demonstrates EF of 30 to 35% with moderate diffuse hypokinesis and normal wall thickness. CT angio of the chest f rom yesterday demonstrates no pulmonary emboli. He was being treated with cefepime for cellulitis of the bilateral lower extremity.Patient developed hypoglycemia overnight low at 15 he did wake up with an amp of D50 with normalization of his blood sugar. He was sleeping soundly with a blood sugar of little over 100 wishing to be left alone giving no history not answering questions. He was not agitated and did not appear to be confused. Nursing staff did bring an insect in a cup to me that has the appearance of an adult female louse with history that he had been bathed and there a fair number of insects crawling on him. He had no evidence for bites and I did not see any nits. He did not appear to be in acute distress. Subjective/Events-last exam Pt doing a little better May need senior living placed in rehab Check meds and labs Cardiology appreciated No pain is reported Bowels moving Late in the evening he began experiencing tachycardia and atrial flutter was diagnosed with transferred up to cardiac stepdown for IV Cardizem per cardiology Review of Systems General: Fatigue, Malaise Pulmonary: Dyspnea Cardiovascular: Palpitations Objective Exam Vital Signs Vital Signs Date Time Temp Pulse Resp B/P (MAP) Pulse Ox O2 Delivery O2 Flow Rate FiO2 03/14/21 03:00 108 25 108/64 (79) Nasal Cannula 2.00 03/13/21 23:00 94 03/13/21 19:40 37.1 03/11/21 00:26 21 Capillary Refill : Less Than 3 Seconds General Appearance: No Apparent Distress, WD/WN, Chronically ill, Thin Respiratory: Lungs Clear Cardiovascular: Regular Rate, Rhythm Neurologic/Psychiatric: Alert, Oriented x3, Depressed Affect Results/Procedures Lab Patient resulted labs reviewed. Assessment/Plan Assessment and Plan Assess & Plan/Chief Complaint Assessment: 1. Acute on chronic systolic heart failure with underlying dilated card iomyopathy aggravated by noncompliance continue IV diuretics. 2. Favor venous insufficiency related dermatitis aggravated by right heart failure caused by left heart failure we will hold antibiotics for now. 3. Contact isolation due to likely lice infestation. 4.episode of atrial flutter requiring cardiac stepdown transfer on [facility] [address] Plan: Appreciate cardiology consult Monitor closely Critical Care Critically Ill Patient JULIENNE ABAD DO Mar 13, 2021 06:35
[2021-03-13] MEDS: KCL 20 MEQ TAB (K-DUR) PO SCH ×4 (09:00→20:42)
[2021-03-13] MEDS: FUROSEMIDE 40 MG/4 ML INJ (LASIX) IV SCH ×2 (09:00→16:06)
[2021-03-13] MEDS: CEPHALEXIN 250 MG (KEFLEX) CAP PO SCH ×4 (09:00→20:42)
[2021-03-13] MEDS: TAMSULOSIN 0.4 MG (FLOMAX) CAP PO SCH (17:58)
[2021-03-13] MEDS ORDERED: APIXABAN 5 MG (ELIQUIS) TABLET PO ONE (20:30)
[2021-03-13] MEDS ORDERED: APIXABAN 5 MG (ELIQUIS) TABLET ONE (20:31)
[2021-03-13] MEDS: AMITRIPTYLINE 10 MG (ELAVIL) TAB PO SCH (20:42)
[2021-03-13] MEDS ORDERED: dilTIAZem DRIP PRE-MIX 125 ML IV ONE (21:10)
[2021-03-13] MEDS ORDERED: dilTIAZem DRIP PRE-MIX 125 ML IV SCH (21:15)
[2021-03-14] VITALS (8 sets, daily range): BP systolic 90–124; BP diastolic 57–93
[2021-03-14 06:27] LABS: BASOPHILS # (AUTO) 0.1 10^3/uL (0.0-0.1); BASOPHILS % (AUTO) 1 % (0-10); EOSINOPHILS # (AUTO) 0.1 10^3/uL (0.0-0.3); EOSINOPHILS % (AUTO) 1 % (0-10); HEMATOCRIT 39 % (40-54); HEMOGLOBIN 12.3 g/dL (13.3-17.7); LYMPHOCYTES # (AUTO) 1.1 10^3/uL (1.0-4.0); LYMPHOCYTES % (AUTO) 8 % (12-44); MEAN CORPUSCULAR HEMOGLOBIN 26 pg (25-34); MEAN CORPUSCULAR HGB CONC 32 g/dL (32-36); MEAN CORPUSCULAR VOLUME 83 fL (80-99); MEAN PLATELET VOLUME 10.6 fL (9.0-12.2); MONOCYTES # (AUTO) 0.8 10^3/uL (0.0-1.0); MONOCYTES % (AUTO) 6 % (0-12); NEUTROPHILS # (AUTO) 11.3 10^3/uL (1.8-7.8); NEUTROPHILS % (AUTO) 85 % (42-75); PLATELET COUNT 283 10^3/uL (130-400); WHITE BLOOD COUNT 13.4 10^3/uL (4.3-11.0)
--- NOTE | 2021-03-14 06:30 | Progress Note - Hospitalist ---
Subjective HPI/CC On Admission Date Seen by Provider: Mar 14, 2021 Time Seen by Provider: 09:00 Patient presents ER by EMS from home with chief complaint of continuing to have increasing swelling around his legs and shortness of air and occasional cough. No fevers or chills. He says he left AGAINST MEDICAL ADVICE this afternoon at about 1600 from the floor where Dr. Zuniga was treating him for his heart failure because it was taking too long and he had to get home and take care of his girlfriend. He is the primary caregiver for her. EMS states the house was in advanced state of disrepair, with animals and insects all over the home. Patient denies any nausea chest pain dysuria diarrhea or constipation. He has a history of 13 stents. EMS had initiated a liter of fluids on route because his blood pressure is 102/60. His primary care cigarette book maker is Dr. Tam at [facility]. He was being treated for acute on chronic congestive heart failure. He had a minimal troponin elevation likely due to acutely decompensated heart failure, hypertension, hyperlipidemia, stroke 4 years ago, diabetes type 2 and a strong family history of coronary disease in his mother and father. Echocardiogram from yesterday by Dr. Zuniga demonstrates EF of 30 to 35% with moderate diffuse hypokinesis and normal wall thickness. CT angio of the chest from yesterday demonstrates no pulmonary emboli. He was being treated with cefepime for cellulitis of the bilateral lower extremity.Patient developed hypoglycemia overnight low at 15 he did wake up with an amp of D50 with normalization of his blood sugar. He was sleeping soundly with a blood sugar of little over 100 wishing to be left alone giving no history not answering questions. He was not agitated and did not appear to be confused. Nursing staff did bring an insect in a cup to me that has the appearance of an adult female louse with history that he had been bathed and there a fair number of insects crawling on him. He had no evidence for bites and I did not see any nits. He did not appear to be in acute distress. Subjective/Events-last exam Pt doing about the same Fecal incontinence noted on the floor by his bed Pulmonology consulted and evaluated the pleural effusion to perhaps need a thoracentesis so ultrasound will be done and Dr. Mckeon has been conferred with Creatinine 1.32 Procalcitonin and chest x-ray pending White count up at 13.4 [facility] managed the a fib with RVR Review of Systems General: Fatigue, Malaise Pulmonary: Dyspnea Objective Exam Vital Signs Vital Signs Date Time Temp Pulse Resp B/P (MAP) Pulse Ox O2 Delivery O2 Flow Rate FiO2 03/15/21 03:50 100 Room Air 03/15/21 03:49 36.3 88 18 100/65 (77) 03/14/21 12:00 2.00 03/11/21 00:26 21 Capillary Refill : Less Than 3 Seconds General Appearance: No Apparent Distress, WD/WN, Anxious, Chronically ill, Thin Respiratory: Lungs Clear, Decreased Breath Sounds Cardiovascular: Regular Rate, Rhythm Neurologic/Psychiatric: Alert, Oriented x3 Results/Procedures Lab Laboratory Tests 03/14/21 05:45 Patient resulted labs reviewed. Assessment/Plan Assessment and Plan Assess & Plan/Chief Complaint Assessment: 1. Acute on chronic systolic heart failure with underlying dilated cardiomyopathy aggravated by noncompliance continue IV diuretics. 2. Favor venous insufficiency related dermatitis aggravated by right heart failure caused by left heart failure we will hold antibiotics for now. 3. Contact isolation due to likely lice infestation. 4.episode of atrial flutter requiring cardiac stepdown transfer on [facility] Plan: Appreciate cardiology consult Monitor closely 03/14/21: Appreciate Dr. Mckeon Thoracentesis removed 2500 cc from the right May need thoracentesis on the left Appreciate cardiology Therapy ordered for retirement placement planning Critical Care Critically Ill Patient JULIENNE ABAD DO Mar 14, 2021 06:30
[2021-03-14] MEDS: CATHETER FLUSH 10 ML SYR IV SCH ×3 (06:31→21:44)
[2021-03-14 06:37] LABS: POTASSIUM 3.9 MMOL/L (3.6-5.0)
[2021-03-14 06:38] LABS: CALCIUM 9.2 MG/DL (8.5-10.1)
[2021-03-14 06:40] LABS: TOTAL PROTEIN 6.2 GM/DL (6.4-8.2)
[2021-03-14 06:41] LABS: BILIRUBIN,TOTAL 1.2 MG/DL (0.1-1.0)
[2021-03-14 06:43] LABS: CREATININE SERUM 1.32 MG/DL (0.60-1.30)
[2021-03-14] MEDS: inSUlin ASPART (NovoLOG) 1 UNIT/0.01 ML (CHARGE PER UNIT) SC SCH ×4 (06:50→21:23)
[2021-03-14 06:54] LABS: BAND NEUTROPHILS 1 %; EOSINOPHILS % (MANUAL) 1 %; LYMPHOCYTES % (MANUAL) 6 %; MONOCYTES % (MANUAL) 6 %; NEUTROPHILS % (MANUAL) 86 %; RBC MORPH NORMAL
[2021-03-14] MEDS: FUROSEMIDE 40 MG/4 ML INJ (LASIX) IV SCH ×2 (08:57→17:06)
[2021-03-14] MEDS: CEPHALEXIN 250 MG (KEFLEX) CAP PO SCH ×4 (08:58→21:30)
[2021-03-14] MEDS: KCL 20 MEQ TAB (K-DUR) PO SCH ×4 (08:58→21:30)
[2021-03-14] MEDS ORDERED: APIXABAN 5 MG (ELIQUIS) TABLET PO SCH (09:00)
--- NOTE | 2021-03-14 09:28 | Pulmonary Consultation ---
History of Present Illness History of Present Illness Date Seen by Provider: Mar 14, 2021 Time Seen by Provider: 09:30 Date of Admission History of Present Illness 60 y old man with hx of systolic CHF LVEF 30%, uncompliant with medication, left AMA a few days ago. Pt returned with SOB on exertion and at rest/ leg edema. Pt was admitted to cardiac step down/ developed A fib with RVR needing cardiazem drip. Allergies and Home Medications Allergies Coded Allergies: NKANo Known Allergies (Verified Allergy, Unknown, 12/27/07) Home Medications Albuterol Sulfate 18 Gm Hfa.aer.ad, 2 PUFF INH Q6H PRN for SHORTNESS OF BREATH, (Reported) Amitriptyline HCl 10 Mg Tablet, 10 MG PO HS, (Reported) Cetirizine HCl 10 Mg Tablet, 10 MG PO DAILY, (Reported) Cyclobenzaprine HCl 5 Mg Tablet, 5 MG PO HS, (Reported) Furosemide 40 Mg Tablet, 40 MG PO DAILY, (Reported) Hydrochlorothiazide 50 Mg Tablet, 50 MG PO DAILY, (Reported) Insulin Glargine,Hum.rec.anlog 100 Unit/1 Ml Insuln.pen, 45 UNITS SC DAILY, (Reported) Linaclotide 72 Mcg Capsule, 72 MCG PO DAILY, (Reported) Montelukast Sodium 10 Mg Tablet, 10 MG PO DAILY, (Reported) Potassium Chloride 20 Meq Tab.er.prt, 20 MEQ PO DAILY, (Reported) Rosuvastatin Calcium 40 Mg Tablet, 40 MG PO DAILY, (Reported) Tamsulosin HCl 0.4 Mg Cap, 0.4 MG PO DAILY, (Reported) Triamterene/Hydrochlorothiazid 1 Each Tablet, 1 EA PO DAILY, (Reported) Past Medical/Social/Family Hx Patient Social History Employed/Student: unemployed Smoking Status: Never a Smoker Substance use?: Unable to obtain Alcohol Use?: Unable to obtain Pt stated abuse/neglect: Unable to obtain Immunizations Up To Date Influenza Vaccine Up-to-Date: No; Not Current Tetanus Booster (TDap): Unknown Current Status Advance Directives: Unable to obtain Communicates: Verbally Primary Language: Latvian Preferred Spoken Language: Latvian Is interpretation needed?: No Sensory deficits: Vision impairment, Hearing impairment Past Medical History PMHx Heart disease Diabetes HTN HLD SurgHx: Denies Review of Systems Constitutional: see HPI EENTM: see HPI Respiratory: dyspnea on exertion, orthopnea Gastrointestinal: no symptoms reported Genitourinary: no symptoms reported Skin: change in color, rash Sepsis Event Evaluation Height, Weight, BMI Height: 5'8" Weight: 175lbs. oz. 79.055168wx; 22.17 BMI Method:Stated Exam Exam Patient acknowledged, consented, and participated in this virtual visit which was conducted using real time audio/video Vital Signs Date Time Temp Pulse Resp B/P (MAP) Pulse Ox O2 Delivery O2 Flow Rate FiO2 03/14/21 08:00 36.5 110 16 107/68 (81) Nasal Cannula 2.00 03/14/21 06:42 104 03/14/21 06:20 Room Air 03/14/21 05:00 94 17 Nasal Cannula 2.00 03/14/21 04:00 99 24 Nasal Cannula 2.00 03/14/21 03:00 108 25 108/64 (79) Nasal Cannula 2.00 03/14/21 02:44 107 21 107/70 (82) Nasal Cannula 2.00 03/14/21 01:30 103 31 97/62 (74) Nasal Cannula 2.00 03/14/21 01:00 106 03/13/21 23:45 126 28 112/74 (87) Nasal Cannula 2.00 03/13/21 23:00 123 13 122/87 (102) 94 Nasal Cannula 2.00 03/13/21 22:45 123 22 134/95 (107) 96 Nasal Cannula 2.00 03/13/21 22:30 123 27 123/91 (99) 98 Nasal Cannula 2.00 03/13/21 22:20 Nasal Cannula 2.00 03/13/21 22:15 131 17 124/87 (98) 85 Room Air 03/13/21 22:00 124 17 146/108 (119) Room Air 03/13/21 21:45 118 22 132/93 (100) 100 Room Air 03/13/21 21:30 122 33 117/85 (94) 98 Room Air 03/13/21 21:15 117 25 109/71 (82) 99 Room Air 03/13/21 21:12 117 28 113/72 (86) 95 Room Air 03/13/21 20:45 Room Air 03/13/21 19:48 140 03/13/21 19:40 37.1 18 115/78 (90) 95 Room Air 03/13/21 19:00 118 03/13/21 18:25 Room Air 03/13/21 15:56 37.2 121 20 132/89 (103) 100 Room Air 03/13/21 12:47 116 03/13/21 11:53 36.0 109 19 104/66 (79) 97 Room Air I & O 03/14/21 07:00 Intake Total 1100 ml Output Total 750 ml Balance 350 ml Height & Weight Height: 5'8" Weight: 175lbs. oz. 79.479491mv; 22.17 BMI Method:Stated General Appearance: No Apparent Distress, WD/WN, Chronically ill, Cachetic, Thin Neck: Full Range of Motion Respiratory: Lungs Clear, Decreased Breath Sounds (right more than left) Cardiovascular: Regular Rate, Rhythm, Irregularly Irregular Capillary Refill: Less Than 3 Seconds Gastrointestinal: normal bowel sounds, non tender, soft Extremity: Pedal Edema, Other (Less erythema right lateral foot very shallow ulceration nontender to touch lesser degree of erythema left foot no ulceration continue to monitor) Neurologic/Psychiatric: Alert, Oriented x3, Depressed Affect Results Lab Laboratory Tests 03/13/21 04:37 03/14/21 05:45 Assessment/Plan Assessment/Plan A/P 1. Acute resp failure hypoxemic due to CHF exacerbation -titrate O2 for pilse ox>90% -cxray and CT chest reviewed; pt has large right pleural effusion; consider US right hemithorax to better evaluate the amount of fluid and consider drainage via IR -consider nocturnal/ PRN BIPAP for optimization of fluid removal from the lung area. 2. A fib with RVR -on cardizem drip 3. Leg edema; very probable related to fluid overload/ consider diuretics/ mina duplex ro dvt Cardiac rehab to be considered. MONTRELL GARCIA MD Mar 14, 2021 09:28
[2021-03-14] MEDS ORDERED: RT-ALBUTEROL SULF 2.5 MG/3 ML PRE-MIX VIAL INH PRN (10:00)
--- NOTE | 2021-03-14 10:39 | Diagnostic Imaging Report ---
INDICATION: Short of air. FINDINGS: Upright portable chest shows normal heart size. There is mild vascular prominence. There is right basilar atelectasis and infiltrate with a right-sided effusion. IMPRESSION: There has been improved aeration of the left lung base since 03/10/2021. There is persistent right basilar atelectasis, infiltrate and effusion similar to the prior exam. Recommend continued follow-up. Dictated by: Dictated on workstation # [id number]
--- NOTE | 2021-03-14 11:23 | Consultation-Cardiology ---
HPI-Cardiology Cardiology Consultation: Date of Consultation 03/14/21 Time Seen by a Provider: 10:50 Date of Admission 03-13-21 Attending Physician Lolita Abad DO Admitting Physician Sarah,Local Physician Consulting Physician Alonzo Zuniga MD HPI: Chief Complaint: Acute on chronic CHF Mr. Oseguera is a 60 yr old male who has been re-admitted to the hospital after leaving AMA a couple of days ago. He reports he was having increasing SOB and LE swelling that was getting worse. No c/o CP or palpitations. No c/o syncope or near syncope. No c/o n/v/d. No c/o fever or chills. Review of Systems-Cardiology Review of Systems Constitutional: No chills, No fever, No lightheadedness; malaise Eyes: No vision change Ears/Nose/Throat: No epistaxis; other (chronic [place]) Respiratory: As described under HPI Cardiovascular: As described under HPI Gastrointestinal: No constipation, No diarrhea, No nausea, No vomiting Genitourinary: No dysuria, No hematuria Musculoskeletal: no symptoms reported Skin: No rash on exposed areas, No ulcerations on exposed areas Psychiatric/Neurological: No anxiety, No depression, No seizure, No focal weakness, No syncope Hematologic: No bleeding abnormalities All Other Systems Reviewed Negative Unless Noted: Yes DJV-Rwcsre-Pelijh Hx Patient Social History Employed/Student: unemployed Smoking Status: Never a Smoker 2nd Hand Smoke Exposure: No Have you traveled recently?: No Alcohol Use?: Unable to obtain Pt feels they are or have been: Unable to obtain Immunizations Up To Date Date of Influenza Vaccine: Jun 16, 2014 Past Medical History PMH As described under Assessment. Family Medical History Family Medical History: He reports his mother and father both had CAD Family History: FH: heart disease 19 FATHER 19 MOTHER Allergies and Home Medications Allergies Coded Allergies: NKANo Known Allergies (Verified Allergy, Unknown, 12/27/07) Home Medications Albuterol Sulfate 18 Gm Hfa.aer.ad, 2 PUFF INH Q6H PRN for SHORTNESS OF BREATH, (Reported) Last Action: Continued Amitriptyline HCl 10 Mg Tablet, 10 MG PO HS, (Reported) Last Action: Continued Cetirizine HCl 10 Mg Tablet, 10 MG PO DAILY, (Reported) Last Action: Converted Cyclobenzaprine HCl 5 Mg Tablet, 5 MG PO HS, (Reported) Last Action: Converted Furosemide 40 Mg Tablet, 40 MG PO DAILY, (Reported) Last Action: Held Hydrochlorothiazide 50 Mg Tablet, 50 MG PO DAILY, (Reported) Last Action: Held Insulin Glargine,Hum.rec.anlog 100 Unit/1 Ml Insuln.pen, 45 UNITS SC DAILY, (Reported) Last Action: Converted Linaclotide 72 Mcg Capsule, 72 MCG PO DAILY, (Reported) Last Action: Held Montelukast Sodium 10 Mg Tablet, 10 MG PO DAILY, (Reported) Last Action: Continued Potassium Chloride 20 Meq Tab.er.prt, 20 MEQ PO DAILY, (Reported) Last Action: Held Rosuvastatin Calcium 40 Mg Tablet, 40 MG PO DAILY, (Reported) Last Action: Converted Tamsulosin HCl 0.4 Mg Cap, 0.4 MG PO DAILY, (Reported) Last Action: Continued Triamterene/Hydrochlorothiazid 1 Each Tablet, 1 EA PO DAILY, (Reported) Last Action: Held Physical Exam-Cardiology Physical Exam Vital Signs/I&O 03/15/21 03/15/21 03/15/21 03/15/21 03:49 03:50 08:00 08:00 Temp 36.3 35.3 Pulse 88 92 Resp 18 20 B/P (MAP) 100/65 (77) 94/60 (71) Pulse Ox 100 100 99 100 O2 Delivery Room Air Room Air Room Air Room Air 03/15/21 11:44 Temp 35.3 Pulse 70 Resp 18 B/P (MAP) 96/63 (74) Pulse Ox 99 O2 Delivery Room Air 03/15/21 00:00 Intake Total 580 ml Output Total 400 ml Balance 180 ml Capillary Refill : Less Than 3 Seconds Constitutional: AAO x 3, well-developed, well-nourished HEENT: PERRL; No hearing is well preserved; hard of hearing; No oral hygience is good Neck: No carotid bruit; carotid pulses are 2 + bilaterally Respiratory: No accessory muscle use, No respiratory distress; chest expansion is symmetric, chest is bilaterally symmetric, crackles (bi-basilar) Cardiovascular: regular rate-rhythm; No JVD; S1 and S2, systolic murmur Gastrointestinal: No tender; soft, round, audible bowel sounds Extremities: other (bilat LE pitting edema 2 (+)) Neurologic/Psychiatric: grossly intact (moves all extremities) Skin: No rash on exposed areas, No ulcerations on exposed areas Data Review Labs Laboratory Tests 03/14/21 15:30: Body Fluid Source THORACEN, Body Fluid Color PALE YELLOW, Body Fluid Appearance SLT CLDY, Body Fluid pH , Body Fluid WBC 293, Body Fluid RBC 438, Body Fluid Polynuclear WBCs 22, Body Fluid Mononuclear WBCs 53, Body Fluid Lymphocytes 25, Body Fluid Eosinophils 0, Body Fluid Other Cells 0, Body Fluid Glucose 273, Body Fluid Total Protein 0.8, Body Fluid Albumin 0.5, Body Fluid Lactate Dehydrogenase 44, Body Fluid Amylase 25, Body Fluid Triglycerides 10 03/14/21 16:02: Glucometer 203H 03/14/21 20:11: Glucometer 20*L 03/14/21 20:19: Glucometer 276H 03/14/21 20:37: Glucometer 158H 03/14/21 21:23: Glucometer 131H 03/14/21 22:25: Glucometer 73 03/14/21 23:05: Glucometer 67L 03/14/21 23:42: Glucometer 63L 03/15/21 00:53: Glucometer 101 03/15/21 03:36: Glucometer 101 03/15/21 05:24: Glucometer 79 03/15/21 06:21: White Blood Count 11.8H, Red Blood Count 4.51, Hemoglobin 11.8L, Hematocrit 38L, Mean Corpuscular Volume 83, Mean Corpuscular Hemoglobin 26, Mean Corpuscular Hemoglobin Concent 31L, Red Cell Distribution Width 15.9H, Platelet Count 275, Mean Platelet Volume 9.7, Immature Granulocyte % (Auto) 1, Neutrophils (%) (Auto) 79H, Lymphocytes (%) (Auto) 13, Monocytes (%) (Auto) 6, Eosinophils (%) (Auto) 1, Basophils (%) (Auto) 0, Neutrophils # (Auto) 9.4H, Lymphocytes # (Auto) 1.5, Monocytes # (Auto) 0.7, Eosinophils # (Auto) 0.2, Basophils # (Auto) 0.1, Immature Granulocyte # (Auto) 0.1, Sodium Level 138, Potassium Level 3.9, Chloride Level 101, Carbon Dioxide Level 28, Anion Gap 9, Blood Urea Nitrogen 21H, Creatinine 1.20, Estimat Glomerular Filtration Rate > 60, BUN/Creatinine Ratio 18, Glucose Level 97, Calcium Level 8.8, Corrected Calcium 9.9, Total Bilirubin 0.7, Aspartate Amino Transf (AST/SGOT) 21, Alanine Aminotransferase (ALT/SGPT) 17, Alkaline Phosphatase 132, Total Protein 5.4L, Albumin 2.6L 03/15/21 09:07: Glucometer 92 03/15/21 11:42: Glucometer 150H Microbiology 03/14/21 Gram Stain - Final, Resulted 03/14/21 Anaerobic Culture, Resulted Pending 03/14/21 Body Fluid Culture, Resulted Pending 03/14/21 Fungal Culture 1, Resulted Pending Radiology NAME: DOYEN Argentina OSEGUERA [facility] REC#: [id number] PT STATUS: ADM IN : 1960 PHYSICIAN: LOLITA ABAD DO ADMIT DATE: 03/10/21/MARION Draft Date of Exam:03/14/21 CHEST 1 VIEW, AP/PA ONLY INDICATION: Short of air. FINDINGS: Upright portable chest shows normal heart size. There is mild vascular prominence. There is right basilar atelectasis and infiltrate with a right-sided effusion. IMPRESSION: There has been improved aeration of the left lung base since 03/10/2021. There is persistent right basilar atelectasis, infiltrate and effusion similar to the prior exam. Recommend continued follow-up. Dictated on workstation # [id number] Dict: 03/14/21 1036 Trans: 03/14/[address] [place] [address] [id number] Interpreted by: KAITLIN LUI MD Electronically signed by: A/P-Cardiology Assessment/Admission Diagnosis Acute on chronic systolic CHF Echocardiogram of 03-09-21: - LVEF 30-35%. Mod diffuse hypokinesis. LA mildly dilated. Mod MR. Mod TR. Left pleural effusion seen. PASP 45-50 mmHg Suspected atrial flutter - none has been found CAD: - reports h/o [address] Tam at [facility] in [place], [place] - most recent stent placement greater than 1 yr ago HTN HLD H/O CVA approx 4 yrs ago - details unknown DM 2 Family h/o CAD (mother and father) Discussion and Recomendations Suspected atrial flutter - none found - continue tele - stop IV Cardigeorgi, start BB Stop Eliquis - not indicated Acute on chronic systolic CHF - continue to treat with diuretics ICM - BB, EMILY (-) - adjust medications as BP will allow Request records from [facility] (did not receive previously) Advise Life Vest prior to discharge d/t ICM with LVEF 30% Monitor lab closely Replace electrolytes as indicated Continue ASA d/t CAD - pt states last stenting was over a yr ago Advise compliance with medications, instructions and f/u Further recs will be based on his hospital course We would like to thank medical services for this consult MADELINE WARE Mar 14, 2021 11:23
[2021-03-14] MEDS ORDERED: lisINopril 5 MG (PRINIVIL) TABLET PO ONE (11:45)
[2021-03-14] MEDS ORDERED: ASPIRIN 81 MG CHEW (CHILDREN'S ASA) PO ONE (11:45)
--- NOTE | 2021-03-14 13:40 | Consultation-Cardiology ---
HPI-Cardiology Cardiology Consultation: Date of Consultation 03/14/21 Time Seen by a Provider: 08:30 Date of Admission Attending Physician Lolita Akins DO Admitting Physician No,Local Physician Consulting Physician ALBINO MORTON MD, MA, FACP, FACC, [facility] Physician requesting consult: Dr. Akins HPI: Chief Complaint: Reason for consultation: Tachycardia, [id number] CHF Mr. Oseguera is a 60 yr old male who has been re-admitted to the hospital after leaving AMA a couple of days ago. He reports he was having increasing SOB and LE swelling that was getting worse. No c/o CP or palpitations. No c/o syncope or near syncope. No c/o n/v/d. No c/o fever or chills. Review of Systems-Cardiology Review of Systems Constitutional: No chills, No fever, No lightheadedness; malaise Eyes: No vision change Ears/Nose/Throat: No epistaxis; other (chronic [place]) Respiratory: As described under HPI Cardiovascular: As described under HPI Gastrointestinal: No constipation, No diarrhea, No nausea, No vomiting Genitourinary: No dysuria, No hematuria Musculoskeletal: no symptoms reported Skin: No rash on exposed areas, No ulcerations on exposed areas Psychiatric/Neurological: No anxiety, No depression, No seizure, No focal weakness, No syncope Hematologic: No bleeding abnormalities All Other Systems Reviewed Negative Unless Noted: Yes [id number]-[id number] Hx Patient Social History Employed/Student: unemployed Smoking Status: Never a Smoker 2nd Hand Smoke Exposure: No Have you traveled recently?: No Alcohol Use?: Unable to obtain Pt feels they are or have been: Unable to obtain Immunizations Up To Date Date of Influenza Vaccine: Jun 16, 2014 Past Medical History PMH As described under Assessment. Family Medical History Family Medical History: He reports his mother and father both had CAD Family History: FH: heart disease 19 FATHER 19 MOTHER Allergies and Home Medications Allergies Coded Allergies: NKANo Known Allergies (Verified Allergy, Unknown, 12/27/07) Home Medications Albuterol Sulfate 18 Gm Hfa.aer.ad, 2 PUFF INH Q6H PRN for SHORTNESS OF BREATH, (Reported) Last Action: Continued Amitriptyline HCl 10 Mg Tablet, 10 MG PO HS, (Reported) Last Action: Continued Cetirizine HCl 10 Mg Tablet, 10 MG PO DAILY, (Reported) Last Action: Converted Cyclobenzaprine HCl 5 Mg Tablet, 5 MG PO HS, (Reported) Last Action: Converted Furosemide 40 Mg Tablet, 40 MG PO DAILY, (Reported) Last Action: Held Hydrochlorothiazide 50 Mg Tablet, 50 MG PO DAILY, (Reported) Last Action: Held Insulin Glargine,Hum.rec.anlog 100 Unit/1 Ml Insuln.pen, 45 UNITS SC DAILY, (Reported) Last Action: Converted Linaclotide 72 Mcg Capsule, 72 MCG PO DAILY, (Reported) Last Action: Held Montelukast Sodium 10 Mg Tablet, 10 MG PO DAILY, (Reported) Last Action: Continued Potassium Chloride 20 Meq Tab.er.prt, 20 MEQ PO DAILY, (Reported) Last Action: Held Rosuvastatin Calcium 40 Mg Tablet, 40 MG PO DAILY, (Reported) Last Action: Converted Tamsulosin HCl 0.4 Mg Cap, 0.4 MG PO DAILY, (Reported) Last Action: Continued Triamterene/Hydrochlorothiazid 1 Each Tablet, 1 EA PO DAILY, (Reported) Last Action: Held Patient Home Medication List Home Medication List Reviewed: Yes Physical Exam-Cardiology Physical Exam Vital Signs/I&O 03/14/21 03/14/21 03/14/21 03/14/21 02:44 03:00 04:00 05:00 Pulse 107 108 99 94 Resp 21 25 24 17 B/P (MAP) 107/70 (82) 108/64 (79) O2 Delivery Nasal Cannula Nasal Cannula Nasal Cannula Nasal Cannula O2 Flow Rate 2.00 2.00 2.00 2.00 03/14/21 03/14/21 03/14/21 03/14/21 06:20 06:42 08:00 12:00 Temp 36.5 35.6 Pulse 104 110 117 Resp 16 26 B/P (MAP) 107/68 (81) 124/93 (103) O2 Delivery Room Air Nasal Cannula Nasal Cannula O2 Flow Rate 2.00 2.00 03/13/21 23:59 Intake Total 900 ml Output Total 750 ml Balance 150 ml Capillary Refill : Less Than 3 Seconds Constitutional: AAO x 3, well-developed, well-nourished HEENT: PERRL; No hearing is well preserved; hard of hearing; No oral hygience is good Neck: No carotid bruit; carotid pulses are 2 + bilaterally Respiratory: No accessory muscle use, No respiratory distress; chest expansion is symmetric, chest is bilaterally symmetric, crackles (bi-basilar) Cardiovascular: regular rate-rhythm; No JVD; S1 and S2, systolic murmur Gastrointestinal: No tender; soft, round, audible bowel sounds Extremities: other (bilat LE pitting edema 2 (+)) Neurologic/Psychiatric: other (hard of hearing, moves all limbs equally) Skin: No rash on exposed areas, No ulcerations on exposed areas Data Review Labs Laboratory Tests 03/13/21 15:47: Glucometer 201H 03/13/21 19:59: Glucometer 329H 03/14/21 05:45: White Blood Count 13.4H, Red Blood Count 4.69, Hemoglobin 12.3L, Hematocrit 39L, Mean Corpuscular Volume 83, Mean Corpuscular Hemoglobin 26, Mean Corpuscular Hemoglobin Concent 32, Red Cell Distribution Width 16.0H, Platelet Count 283, Mean Platelet Volume 10.6, Immature Granulocyte % (Auto) 0, Neutrophils (%) (Auto) 85H, Lymphocytes (%) (Auto) 8L, Monocytes (%) (Auto) 6, Eosinophils (%) (Auto) 1, Basophils (%) (Auto) 1, Neutrophils # (Auto) 11.3H, Lymphocytes # ( Auto) 1.1, Monocytes # (Auto) 0.8, Eosinophils # (Auto) 0.1, Basophils # (Auto) 0.1, Immature Granulocyte # (Auto) 0.1, Neutrophils % (Manual) 86, Lymphocytes % (Manual) 6, Monocytes % (Manual) 6, Eosinophils % (Manual) 1, Band Neutrophils 1, Blood Morphology Comment NORMAL, Sodium Level 136, Potassium Level 3.9, Chloride Level 96L, Carbon Dioxide Level 27, Anion Gap 13, Blood Urea Nitrogen 21H, Creatinine 1.32H, Estimat Glomerular Filtration Rate 55, BUN/Creatinine Ratio 16, Glucose Level 220H, Calcium Level 9.2, Corrected Calcium 10.0, Total Bilirubin 1.2H, Aspartate Amino Transf (AST/SGOT) 25, Alanine Aminotransferase (ALT/SGPT) 21, Alkaline Phosphatase 151H, Total Protein 6.2L, Albumin 3.0L, Procalcitonin 0.07 03/14/21 11:06: Glucometer 288H Laboratory Tests 03/13/21 04:37 03/14/21 05:45 A/P-Cardiology Assessment/Admission Diagnosis Acute on chronic systolic CHF - Echocardiogram of 03-09-21 LVEF 30-35%. Mod diffuse hypokinesis. LA mildly dilated. Mod MR. Mod TR. Left pleural effusion seen. PASP 45-50 mmHg Sinus tachycardia. Transferred from the floor to cardiac stepdown on the suspicion of atrial flutter on 03/13/21. Review of tele does not shot any atrial flutter CAD: - reports h/o [address] Tam at [facility] in [place], [place] - most recent stent placement greater than 1 yr ago HTN HLD H/O CVA approx 4 yrs ago - details unknown DM 2 Family h/o CAD (mother and father) Discussion and Recomendations Complex management. Multiple issues addressed Suspected atrial flutter - none found - continue tele - stop IV Cardizem, start BB Stop Eliquis - not indicated Acute on chronic systolic CHF - continue to treat with diuretics ICM - BB, EMILY (-) - adjust medications as BP will allow Request records from [facility] (did not receive previously) Advise Life Vest prior to discharge d/t ICM with LVEF 30% Monitor lab closely Replace electrolytes as indicated Continue ASA d/t CAD - pt states last stenting was over a yr ago Advise compliance with medications, instructions and f/u Further recs will be based on his hospital course We would like to thank Medical services for this consult ALBINO MORTON MD FACP [facility] Mar 14, 2021 13:40
--- NOTE | 2021-03-14 15:40 | Physical Therapy Progress Note ---
Therapy Progress Note Patient currently having a thoracentesis/chest xray, etc. PT to begin in RICHA Kimbrough PT Mar 14, 2021 15:40
--- NOTE | 2021-03-14 16:04 | Diagnostic Imaging Report ---
INDICATION: Bilateral leg swelling. Bilateral lower extremity venous Doppler study was performed in the routine fashion with color flow Doppler and waveform analysis. FINDINGS: The common femoral veins, superficial femoral veins, popliteal veins and visualized portion of the tibial veins show normal compressibility and venous flow patterns. There is normal augmentation. IMPRESSION: No evidence of deep vein thrombosis in the major veins of both legs. Dictated by: Dictated on workstation # [id number]
--- NOTE | 2021-03-14 16:47 | Diagnostic Imaging Report ---
INDICATION: Pleural effusion. COMPARISON: Chest radiograph from 03/14/2021. FINDINGS AND IMPRESSION: Targeted ultrasound imaging of the right lower chest demonstrates a moderate to large right pleural effusion with a measured volume of 1.358 L. Dictated by: Dictated on workstation # [id number]
--- NOTE | 2021-03-14 16:57 | Diagnostic Imaging Report ---
INDICATION: Status post thoracentesis. COMPARISON: Earlier same day FINDINGS: Single frontal radiographic view the chest was obtained and demonstrates no evidence of pneumothorax status post right-sided thoracentesis. There is no significant residual pleural fluid. Right lung base shows improved aeration. Patchy bibasilar airspace opacities and diffuse prominence of the interstitium persists. There is no large effusion on the left. Cardiac silhouette and pulmonary vasculature are borderline prominent as well. IMPRESSION: 1. No pneumothorax, status post right-sided thoracentesis. 2. Overall improved aeration of the right base, but with persistent probable bibasilar atelectasis superimposed on interstitial pulmonary edema. 3. Cardiomegaly and vascular congestion. Dictated by: Dictated on workstation # [id number]
[2021-03-14] MEDS: TAMSULOSIN 0.4 MG (FLOMAX) CAP PO SCH (17:06)
[2021-03-14 17:17] LABS: GLUCOSE,BODY FLUID 273 MG/DL
[2021-03-14 17:18] LABS: ALBUMIN,BODY FLUID 0.5 G/DL; AMYLASE,BODY FLUID 25 U/L; BODY FLUID TRIGLYCERIDES 10 MG/DL; LDH,BODY FLUID 44 U/L; TOTAL PROTEIN,BODY FLUID 0.8 G/DL
[2021-03-14 17:35] LABS: BODY FLUID APPEARENCE SLT CLDY; BODY FLUID COLOR PALE YELLOW; BODY FLUID SOURCE THORACEN
[2021-03-14 17:36] LABS: BODY FLUID RBC COUNT 438 /uL; BODY FLUID WBC TOTAL COUNT 293 /uL
[2021-03-14 17:53] LABS: BF OTHER CELLS 0 %; LYMPHOCYTES,BODY FLUID 25 %
--- NOTE | 2021-03-14 18:47 | Diagnostic Imaging Report ---
INDICATION: Bilateral pleural effusions. Sonographic guidance was provided for Dr. Mckeon for performance of a right-sided thoracentesis. IMPRESSION: Guidance using ultrasound for Dr. Mckeon for right-sided thoracentesis. Dictated by: Dictated on workstation # [id number]
--- NOTE | 2021-03-14 19:48 | Physician Query Clarification ---
Physician Query-General Query to Physician: The medical record reflects the following clinical scenario: The patient, in the setting of History/Risk factors, Heart failure with "large right pleural effusion" Clinical Findings 03/13/2021 RR increased 20 - 30' for greater than 12 hours, 02 Sat 85 % on RA (P/F 238) 94% on 2L (P/F 260), SOA at rest documented daily by nursing Treatment Supplemental 02, Albuterol, Lasix IV, Question: Do you agree with the impression of Acute Respiratory Failure Hypoxemic due to CHF per Tele Critical Care physician Krystal Torres? 1. Yes; will document Acute Respiratory Failure, Hypoxemic the Progress Notes 2. No; will continue current documentation in the Progress Notes 3. Other; will document explanation of clinical findings 4. Clinically undetermined; no explanation for clinical findings Please clarify and document your clinical opinion in the Progress Notes and Discharge Summary including the definitive and/or presumptive diagnosis, (suspected or probable), related to the above clinical findings. Please include clinical findings supporting your diagnosis. In responding to this query, please exercise your independent professional judgment. The purpose of this communication is to more accurately reflect the complexity of your patients condition. The fact that a question is asked does not imply that any particular answer is desired or expected. Please remember a lack of response to the above will prompt a phone page by CDI/coding staff Thank you for timely response to this clarification. Cheyanne Marie MSN, RN [phone] [email or web address] PHYSICIAN RESPONSE: Based on the clinical findings in the record, please respond to the query above on this document as an addendum. Physician Response: Physician Response yes If you have questions please contact: Contract Coordinator: Ext: Thank you for your time and cooperation. [facility] [employer] Prescription Clerk/Contract Coordinator This is a permanent part of the medical record CHEYANNE MARIE Mar 14, 2021 19:48 JULIENNE ABAD DO Mar 14, 2021 21:22
[2021-03-14] MEDS: AMITRIPTYLINE 10 MG (ELAVIL) TAB PO SCH ×2 (21:42→21:43)
[2021-03-14] MEDS: CYCLOBENZAPRINE 10 MG (FLEXERIL) TAB PO SCH (21:43)
--- NOTE | 2021-03-14 21:52 | Consultation - Surgery ---
History of Present Illness History of Present Illness Patient Consulted On(ainsley/time) 03/14/21 21:44 Date Seen by Provider: Mar 14, 2021 Time Seen by Provider: 15:00 History of Present Illness Consult requested by Dr. Akins for possible thoracentesis. Patient is a 60-year-old male who admitted for congestive heart failure. Patient was found to have bilateral pleural effusions from a CT scan during last visit which she left AMA. Patient has had increasing shortness of breath. Patient states moving makes it worse. Nothing really seems to make it better. Patient with a wound to the right lateral foot which he states is getting better. Unsure how long its been there. It has a scab over it. He denies any nausea vomiting fever sweats chills or chest pain at this time Allergies and Home Medications Allergies Coded Allergies: REIDANo Known Allergies (Verified Allergy, Unknown, 12/27/07) Home Medications Albuterol Sulfate 18 Gm Hfa.aer.ad, 2 PUFF INH Q6H PRN for SHORTNESS OF BREATH, (Reported) Last Action: Continued Amitriptyline HCl 10 Mg Tablet, 10 MG PO HS, (Reported) Last Action: Continued Cetirizine HCl 10 Mg Tablet, 10 MG PO DAILY, (Reported) Last Action: Converted Cyclobenzaprine HCl 5 Mg Tablet, 5 MG PO HS, (Reported) Last Action: Converted Furosemide 40 Mg Tablet, 40 MG PO DAILY, (Reported) Last Action: Held Hydrochlorothiazide 50 Mg Tablet, 50 MG PO DAILY, (Reported) Last Action: Held Insulin Glargine,Hum.rec.anlog 100 Unit/1 Ml Insuln.pen, 45 UNITS SC DAILY, (Reported) Last Action: Converted Linaclotide 72 Mcg Capsule, 72 MCG PO DAILY, (Reported) Last Action: Held Montelukast Sodium 10 Mg Tablet, 10 MG PO DAILY, (Reported) Last Action: Continued Potassium Chloride 20 Meq Tab.er.prt, 20 MEQ PO DAILY, (Reported) Last Action: Held Rosuvastatin Calcium 40 Mg Tablet, 40 MG PO DAILY, (Reported) Last Action: Converted Tamsulosin HCl 0.4 Mg Cap, 0.4 MG PO DAILY, (Reported) Last Action: Continued Triamterene/Hydrochlorothiazid 1 Each Tablet, 1 EA PO DAILY, (Reported) Last Action: Held Patient Home Medication List Home Medication List Reviewed: Yes Past Bixhvaj-Lbjeou-Trzlhc Hx Patient Social History Drug of Choice: Denies Smoking Status: Never a Smoker 2nd Hand Smoke Exposure: No Recent Hopitalizations: Yes Alcohol Use?: Unable to obtain Have you traveled recently?: No Immunizations Up To Date Date of Influenza Vaccine: Jun 16, 2014 Seasonal Allergies Seasonal Allergies: No Surgeries History of Surgeries: Yes (R KNEE SX) Surgeries: Cardiac, Coronary Stent, Orthopedic Respiratory History of Respiratory Disorde: No Cardiovascular History of Cardiac Disorders: Yes Cardiac Disorders: Coronary Artery Disease, Heart Attack, Hypertension Neurological History of Neurological Disord: Yes Neurological Disorders: Stroke, TIA Reproductive System Hx Reproductive Disorders: No Genitourinary History of Genitourinary Disor: No Gastrointestinal History of Gastrointestinal Di: No Musculoskeletal History of Musculoskeletal Dis: Yes Musculoskeletal Disorders: Arthritis Endocrine History of Endocrine Disorders: Yes Endocrine Disorders: Diabetes, Insulin dep HEENT Hearing Impairment: Hard of Hearing Cancer History of Cancer: No Psychosocial History of Psychiatric Problem: No Integumentary History of Skin or Integumenta: No Blood Transfusions History of Blood Disorders: Yes Reviewed Nursing Assessment Reviewed/Agree w Nursing PMH: Yes Family Medical History Significant Family History: Heart Disease, Stroke Family Medial History: FH: heart disease 19 FATHER 19 MOTHER Review of Systems-General Constitutional: No chills, No diaphoresis EENTM: No blurred vision, No double vision Respiratory: No cough; dyspnea on exertion, short of breath Cardiovascular: No chest pain, No palpitations Gastrointestinal: No abdominal pain, No nausea, No vomiting Genitourinary: No decreased output, No discharge Musculoskeletal: No back pain, No joint pain Skin: other (scab left lateral foot) Psychiatric/Neurological: Denies Anxiety, Denies Depressed, Denies Emotional Problems All Other Systems Reviewed Negative Unless Noted: Yes (Negative excepted noted.) Physical Exam-General Problems Physical Exam Vital Signs Vital Signs - First Documented 03/10/21 03/11/21 03/13/21 19:21 00:26 22:20 Temp 36.3 Pulse 100 Resp 27 B/P (MAP) 97/62 (74) Pulse Ox 94 O2 Delivery Room Air O2 Flow Rate 2.00 FiO2 21 Capillary Refill : Less Than 3 Seconds General Appearance: no apparent distress, thin HEENT: PERRL/EOMI, normal ENT inspection Neck: non-tender, supple Respiratory: chest non-tender, no accessory muscle use (slightly labored breathing) Cardiovascular: no JVD, irregularly irregular Gastrointestinal: non tender, soft Rectal: deferred Back: normal inspection, no CVA tenderness Extremities: non-tender (lateral wound scabbed over right foot) Neurologic/Psychiatric: no motor/sensory deficits, alert, normal mood/affect, oriented x 3 Skin: normal color, warm/dry Lymphatic: no adenopathy Data Review Labs Laboratory Tests 03/14/21 05:45: White Blood Count 13.4H, Red Blood Count 4.69, Hemoglobin 12.3L, Hematocrit 39L, Mean Corpuscular Volume 83, Mean Corpuscular Hemoglobin 26, Mean Corpuscular Hemoglobin Concent 32, Red Cell Distribution Width 16.0H, Platelet Count 283, Mean Platelet Volume 10.6, Immature Granulocyte % (Auto) 0, Neutrophils (%) (Auto) 85H, Lymphocytes (%) (Auto) 8L, Monocytes (%) (Auto) 6, Eosinophils (%) (Auto) 1, Basophils (%) (Auto) 1, Neutrophils # (Auto) 11.3H, Lymphocytes # (Auto) 1.1, Monocytes # (Auto) 0.8, Eosinophils # (Auto) 0.1, Basophils # (Auto) 0.1, Immature Granulocyte # (Auto) 0.1, Neutrophils % (Manual) 86, Lymphocytes % (Manual) 6, Monocytes % (Manual) 6, Eosinophils % (Manual) 1, Band Neutrophils 1, Blood Morphology Comment NORMAL, Sodium Level 136, Potassium Level 3.9, Chloride Level 96L, Carbon Dioxide Level 27, Anion Gap 13, Blood Urea Nitrogen 21H, Creatinine 1.32H, Estimat Glomerular Filtration Rate 55, BUN/Creatinine Ratio 16, Glucose Level 220H, Calcium Level 9.2, Corrected Calcium 10.0, Total Bilirubin 1.2H, Aspartate Amino Transf (AST/SGOT) 25, Alanine Aminotransferase (ALT/SGPT) 21, Alkaline Phosphatase 151H, Total Protein 6.2L, Albumin 3.0L, Procalcitonin 0.07 03/14/21 11:06: Glucometer 288H 03/14/21 15:30: Body Fluid Source THORACEN, Body Fluid Color PALE YELLOW, Body Fluid Appearance SLT CLDY, Body Fluid pH , Body Fluid WBC 293, Body Fluid RBC 438, Body Fluid Polynuclear WBCs 22, Body Fluid Mononuclear WBCs 53, Body Fluid Lymphocytes 25, Body Fluid Eosinophils 0, Body Fluid Other Cells 0, Body Fluid Glucose 273, Body Fluid Total Protein 0.8, Body Fluid Albumin 0.5, Body Fluid Lactate Dehydrogenase 44, Body Fluid Amylase 25, Body Fluid Triglycerides 10 03/14/21 16:02: Glucometer 203H 03/14/21 20:11: Glucometer 20*L 03/14/21 20:19: Glucometer 276H 03/14/21 20:37: Glucometer 158H 03/14/21 21:23: Glucometer 131H Assessment/Plan Assessment/Plan Assessment/Plan Shortness of breath Congestive heart failure Bilateral pleural effusions Right foot lateral wound Patient with ultrasound performed at bedside the right pleural effusion is larger than the left. We discussed risk and benefits of having ultrasound- guided thoracentesis performed. He understands and wishes to proceed. Would likely benefit also from the left pleural effusion to be drained which we will consider tomorrow. Patient agrees with plan. We will send pleural fluid for evaluation and cytology. Procedure ultrasound-guided right thoracentesis: Ultrasound was used to isolate the safest window for thoracentesis. Once located the area was prepped and draped in a sterile fashion timeout was performed 3 mL of 1% lidocaine was used anesthetize the area. A 11 blade scalpel was used to make a small skin incision the safety centesis needle and catheter were then advanced through the incision until straw-colored fluid was withdrawn. And the catheter was then advanced. 2400 mL of straw-colored fluid was withdrawn. The catheter was then removed sterile bandage was applied. Chest x-ray pending. Patient tolerated procedure well. TAY RASCON DO Mar 14, 2021 21:52
[2021-03-15 03:49] VITALS: BP 100/65
[2021-03-15] MEDS: inSUlin ASPART (NovoLOG) 1 UNIT/0.01 ML (CHARGE PER UNIT) SC SCH ×4 (06:00→20:41)
--- NOTE | 2021-03-15 06:32 | Progress Note - Hospitalist ---
Subjective HPI/CC On Admission Date Seen by Provider: Mar 15, 2021 Time Seen by Provider: 09:30 Patient presents ER by EMS from home with chief complaint of continuing to have increasing swelling around his legs and shortness of air and occasional cough. No fevers or chills. He says he left AGAINST MEDICAL ADVICE this afternoon at about 1600 from the floor where Dr. Zuniga was treating him for his heart failure because it was taking too long and he had to get home and take care of his girlfriend. He is the primary caregiver for her. EMS states the house was in advanced state of disrepair, with animals and insects all over the home. Patient denies any nausea chest pain dysuria diarrhea or constipation. He has a history of 13 stents. EMS had initiated a liter of fluids on route because his blood pressure is 102/60. His primary care senior technical editor is Dr. Tam at [facility]. He was being treated for acute on chronic congestive heart failure. He had a minimal troponin elevation likely due to acutely decompensated heart failure, hypertension, hyperlipidemia, stroke 4 years ago, diabetes type 2 and a strong family history of coronary disease in his mother and father. Echocardiogram from yesterday by Dr. Zuniga demonstrates EF of 30 to 35% with moderate diffuse hypokinesis and normal wall thickness. CT angio of the chest from yesterday demonstrates no pulmonary emboli. He was being treated with cefepime for cellulitis of the bilateral lower extremity.Patient developed hypoglycemia overnight low at 15 he did wake up with an amp of D50 with normalization of his blood sugar. He was sleeping soundly with a blood sugar of little over 100 wishing to be left alone giving no history not answering questions. He was not agitated and did not appear to be confused. Nursing staff did bring an insect in a cup to me that has the appearance of an adult female louse with history that he had been bathed and there a fair number of insects crawling on him. He had no evidence for bites and I did not see any nits. He did not appear to be in acute distress. Subjective/Events-last exam Pt doing pretty well Moving down to fourth floor Has become very agitated at times but is not a fall risk at this time WBC 11.8 Rest of labs good May need pleural effusion removed today Review of Systems General: Fatigue, Malaise Pulmonary: Dyspnea Neurological: Weakness Objective Exam Vital Signs Vital Signs Date Time Temp Pulse Resp B/P (MAP) Pulse Ox O2 Delivery O2 Flow Rate FiO2 03/16/21 04:34 36.6 101 18 92/58 (69) 99 Room Air 03/14/21 12:00 2.00 03/11/21 00:26 21 Capillary Refill : Less Than 3 Seconds General Appearance: No Apparent Distress, WD/WN, Chronically ill Respiratory: Lungs Clear, Decreased Breath Sounds Cardiovascular: Regular Rate, Rhythm Neurologic/Psychiatric: Alert, Oriented x3, Depressed Affect Results/Procedures Lab Laboratory Tests 03/15/21 06:21 03/16/21 05:19 Patient resulted labs reviewed. Assessment/Plan Assessment and Plan Assess & Plan/Chief Complaint Assessment: 1. Acute on chronic systolic heart failure with underlying dilated ca rdiomyopathy aggravated by noncompliance continue IV diuretics. 2. Favor venous insufficiency related dermatitis aggravated by right heart failure caused by left heart failure we will hold antibiotics for now. 3. Contact isolation due to likely lice infestation. 4.episode of atrial flutter requiring cardiac stepdown transfer on [facility] drip Plan: Appreciate cardiology consult Monitor closely 03/14/21: Appreciate Dr. Mckeon Thoracentesis removed 2500 cc from the right May need thoracentesis on the left Appreciate cardiology Therapy ordered for alf placement planning 03/15/2021: Moved to fourth floor Monitor closely Oxygen Dr. Mckeon appreciated Cardiology appreciated Critical Care Critically Ill Patient JULIENNE ABAD 30, 2021 06:32
[2021-03-15] MEDS: CATHETER FLUSH 10 ML SYR IV SCH ×3 (06:34→20:41)
[2021-03-15 06:40] LABS: BASOPHILS # (AUTO) 0.1 10^3/uL (0.0-0.1); BASOPHILS % (AUTO) 0 % (0-10); EOSINOPHILS # (AUTO) 0.2 10^3/uL (0.0-0.3); EOSINOPHILS % (AUTO) 1 % (0-10); HEMATOCRIT 38 % (40-54); HEMOGLOBIN 11.8 g/dL (13.3-17.7); LYMPHOCYTES # (AUTO) 1.5 10^3/uL (1.0-4.0); LYMPHOCYTES % (AUTO) 13 % (12-44); MEAN CORPUSCULAR HEMOGLOBIN 26 pg (25-34); MEAN CORPUSCULAR HGB CONC 31 g/dL (32-36); MEAN CORPUSCULAR VOLUME 83 fL (80-99); MEAN PLATELET VOLUME 9.7 fL (9.0-12.2); MONOCYTES # (AUTO) 0.7 10^3/uL (0.0-1.0); MONOCYTES % (AUTO) 6 % (0-12); NEUTROPHILS # (AUTO) 9.4 10^3/uL (1.8-7.8); NEUTROPHILS % (AUTO) 79 % (42-75); PLATELET COUNT 275 10^3/uL (130-400); WHITE BLOOD COUNT 11.8 10^3/uL (4.3-11.0)
[2021-03-15 06:52] LABS: ALBUMIN 2.6 GM/DL (3.2-4.5); CHLORIDE 101 MMOL/L (98-107); POTASSIUM 3.9 MMOL/L (3.6-5.0); SODIUM 138 MMOL/L (135-145)
[2021-03-15 06:54] LABS: CALCIUM 8.8 MG/DL (8.5-10.1)
[2021-03-15 06:55] LABS: GLUCOSE 97 MG/DL (70-105); TOTAL PROTEIN 5.4 GM/DL (6.4-8.2)
[2021-03-15 06:56] LABS: CARBON DIOXIDE 28 MMOL/L (21-32)
[2021-03-15 06:57] LABS: BILIRUBIN,TOTAL 0.7 MG/DL (0.1-1.0)
[2021-03-15 06:58] LABS: ALKALINE PHOSPHATASE 132 U/L (40-136); GFR ESTIMATED > 60
[2021-03-15 06:59] LABS: BUN/CREATININE RATIO 18
[2021-03-15 07:01] LABS: ALANINE AMINOTRANSFERASE 17 U/L (0-55)
[2021-03-15 08:00] VITALS: BP 94/60
[2021-03-15] MEDS: CEPHALEXIN 250 MG (KEFLEX) CAP PO SCH ×4 (08:59→20:18)
[2021-03-15] MEDS: KCL 20 MEQ TAB (K-DUR) PO SCH ×2 (09:00→09:01)
[2021-03-15] MEDS ORDERED: TAMSULOSIN 0.4 MG (FLOMAX) CAP PO SCH (09:00)
[2021-03-15] MEDS: MONTELUKAST 10 MG (SINGULAIR) TAB PO SCH (09:00)
[2021-03-15] MEDS: ROSUVASTATIN 20 MG (CRESTOR) TABLET PO SCH (09:00)
[2021-03-15] MEDS: LORATADINE (CLARITIN) 10 MG TAB PO SCH (09:00)
[2021-03-15] MEDS: lisINopril 5 MG (PRINIVIL) TABLET PO SCH (09:01)
[2021-03-15] MEDS: FUROSEMIDE 40 MG/4 ML INJ (LASIX) IV SCH ×2 (09:01→16:52)
[2021-03-15] MEDS: ASPIRIN 81 MG CHEW (CHILDREN'S ASA) PO SCH (09:01)
--- NOTE | 2021-03-15 09:06 | Physical Therapy Evaluation ---
PT Evaluation-General Medical Diagnosis Admission Date Mar 10, 2021 at 20:45 Medical Diagnosis: heart failure, cardiomyopathy Onset Date: Mar 10, 2021 Therapy Diagnosis Therapy Diagnosis: impaired mobility, strength Height/Weight Height (Feet): 5 Height (Inches): 8 Weight (Pounds): 175 Precautions Precautions/Isolations: Contact Isolation Referral Physician: Lolita Akins DO Reason for Referral: Evaluation/Treatment Medical History Additional Medical History Past Medical History Surgeries: Cardiac, Coronary Stent, Orthopedic Coronary Artery Disease, Heart Attack, Hypertension Stroke, TIA Arthritis Diabetes, Insulin dep Hearing Impairment: Hard of Hearing Reviewed History: Yes Social History Home: Single Level Current Living Status: Spouse Entry Into Home: Stairs Without Railing Patient states he is being discharged to a assisted Prior Prior Level of Function SCALE: Activities may be completed with or without assistive devices. 9-Hhoagtyndd-atfthaj completes the activity by him/herself with no assistance from a helper. 5-Set-up or Clean-up Assistance-helper sets up or cleans up; patient completes activity. [place] assists only prior to or following the activity. 4-Supervision or Touching Assistance-helper provides verbal cues and/or touching/steadying and/or contact guard assistance as patient completes activity. Assistance may be provided throughout the activity or intermittently. 3-Partial/Moderate Assistance-helper does LESS THAN HALF the effort. [place] lifts, holds or supports trunk or limbs, but provides less than half the effort. 2-Substantial/Maximal Assistance-helper does MORE THAN HALF the effort. [place] lifts or holds trunk or limbs and provides more than half the effort. 1-Prjcewwpy-gsfwcw does ALL the effort. Patient does none of the effort to complete the activity. Or, the assistance of 2 or more helpers is required for the patient to complete the activity. If activity was not attempted, code reason: 7-Patient Refused. 9-Not Applicable-not attempted and the patient did not perform the activity before the current illness, exacerbation or injury. 10-Not Attempted due to Environmental Limitations-(lack of equipment, weather restraints, etc.). 88-Not Attempted due to Medical Conditions or Safety Concerns. Bed Mobility: 6 Transfers (B,C,W/C): 6 Gait: 6 Stairs: 6 Indoor Mobility (Ambulation): Independent Patient states he has a rolling walker but doesn't use it. PT Evaluation-Current Subjective Patient in bed pre tx, agrees to PT, has no complaints of pain but says his feet are very itchy. Pt/Family Goals "to be discharged from the hospital" Objective Patient Orientation: Person, Confused, Place ROM/Strength ROM Lower Extremities WNL Strength Lower Extremities LLE (hip flexion 3+/5, knee flexion 4/5, knee extension 4/5, dorsiflexion 5/5), RLE (hip flexion 3/5, knee flexion 4/5, knee extension 4/5, dorsiflexion 5/5) Sensory Vision: Functional Hearing: Impaired Sensation Right Lower Extremit: Intact Sensation Left Lower Extremity: Intact Transfers Roll Left to Right (QC): 6 Sit to Lying (QC): 6 Lying to Sitting/Side of Bed(Q: 6 Sit to Stand (QC): 5 Gait Does the Patient Walk?: Yes Mode of Locomotion: Walk Anticipated Mode of Locomotion: Walk Walk 10 feet (QC): 5 Walk 50 ft with 2 Turns(QC): 5 Distance: 100' Gait Assistive Device: FWW Comments/Gait Description Patient ambulated about his room for about 100' with a rolling walker with setup, ambulation is steady, just needs assist getting the pathway clear. Balance Sitting Static: Normal Sitting Dynamic: Normal Standing Static: Good Standing Dynamic: Good Treatment BLE supine exercises x20 (AP, HS) Assessment/Needs Patient in bed post tx with nurse call, phone, tray, bed alarm on, all needs met. Patient has decreased strength and functional mobility. Rehab Potential: Fair PT Functional Skills Tutor Goals Functional Skills Tutor Goals PT Functional Skills Tutor Goals Time Frame: Mar 22, 2021 Roll Left & Right (QC): 6 Sit to Lying (QC): 6 Lying-Sitting on Side/Bed(QC): 6 Sit to Stand (QC): 6 Chair/Thi-yn-Gpzlq Xfer(QC): 6 Walk 10 feet (QC): 6 Walk 50ft with 2 Turns (QC): 6 Walk 150 ft (QC): 6 PT Plan Problem List Problem List: Activity Tolerance, Functional Strength, Safety, Balance, Gait, Transfer Treatment/Plan Treatment Plan: Continue Plan of Care Treatment Plan: Education, Functional Activity Halima, Functional Strength, Gait, Safety, Therapeutic Exercise, Transfers Treatment Duration: Mar 22, 2021 Frequency: 6 times per week Estimated Hrs Per Day: .25 hour per day Patient and/or Family Agrees t: Yes Safety Risks/Education Patient Education: Gait Training, Transfer Techniques, Correct Positioning, Safety Issues Teaching Recipient: Patient Teaching Methods: Demonstration, Discussion Response to Teaching: Reinforcement Needed Discharge Recommendations Plan Patient will perform bed mobility and transfer training, balance and endurance training, functional strengthening, stair training, gait training, and education, to improve functional mobility and independence at home. Therapy Discharge Recommendati: Scheduled Assistance, Home & Family, Post Acute PT Time/GCodes Time In: 829 Time Out: 842 Total Billed Treatment Time: 13 Total Billed Treatment 1 visit EVL 13' EDDI BAUER PT Mar 15, 2021 09:06
--- NOTE | 2021-03-15 09:14 | Diagnostic Imaging Report ---
Indication: Follow-up thoracentesis. Time of exam 8:45 AM Correlation is made with prior chest from one day earlier. Heart size is stable. There may be some minimal infiltrate or atelectasis in the right base. Otherwise lungs are clear. There is no effusion or pneumothorax. IMPRESSION: Minimal infiltrate or atelectasis right base. Dictated by: Dictated on workstation # [id number]
--- NOTE | 2021-03-15 09:21 | Pulmonary Progress Note ---
Subjective Date Seen by a Provider: Mar 15, 2021 Time Seen by a Provider: 09:19 Subjective/Events-last exam 60 yo M admitted with CHF, a fib with RVR, had right pleural effusion which has responded to diuresis with clearing or right pleural effusion, Pt is currently asleep but RN says breathing is better, with no cough, chest pain, leg edema Was in a fib with RVR rate is better, still in a fibe but V rate in 90's has be en on IV Cardizem, now off, remains on po lisinopril, carvedilol, ASA Sepsis Event Evaluation Height, Weight, BMI Height: 5'8" Weight: 175lbs. oz. [id number]; 22.17 BMI Method:Stated Exam Exam Patient acknowledged, consented, and participated in this virtual visit which was conducted using real time audio/video Vital Signs Date Time Temp Pulse Resp B/P (MAP) Pulse Ox O2 Delivery O2 Flow Rate FiO2 03/15/21 08:00 35.3 92 20 94/60 (71) 99 Room Air 03/15/21 03:50 100 Room Air 03/15/21 03:49 36.3 88 18 100/65 (77) 100 Room Air 03/15/21 00:00 97 Room Air 03/14/21 23:12 36.9 78 22 94/57 (69) 97 Room Air 03/14/21 20:10 91 Room Air 03/14/21 20:00 37.2 102 22 110/76 (87) 91 Room Air 03/14/21 18:29 Room Air 03/14/21 16:00 36.8 112 16 90/59 (69) 100 Room Air 03/14/21 12:00 35.6 117 26 124/93 (103) Nasal Cannula 2.00 I & O 03/15/21 07:00 Intake Total 1410 ml Output Total 800 ml Balance 610 ml Height & Weight Height: 5'8" Weight: 175lbs. oz. [id number]; 22.17 BMI Method:Stated General Appearance: No Apparent Distress, WD/WN, Anxious, Chronically ill, Thin Neck: Full Range of Motion Respiratory: Lungs Clear, Decreased Breath Sounds, Rhonci Cardiovascular: Regular Rate, Rhythm, Irregularly Irregular, Other (rate controlledf) Capillary Refill: Less Than 3 Seconds Gastrointestinal: non tender, soft Extremity: No Pedal Edema, Pedal Edema, Other (Less erythema right lateral foot very shallow ulceration nontender to touch lesser degree of erythema left foot no ulceration continue to monitor) Neurologic/Psychiatric: Alert, Oriented x3, Other (hard of hearing) Results Lab Laboratory Tests 03/14/21 05:45 03/15/21 06:21 Radiology good improvement of right pleural effusion on yesterday repeat CXR Assessment/Plan Assessment/Plan repeat CXR looks better, no need for tap, would continue on same meds Time spent with patient (mins): 20 RAUL LINDSEY MD Mar 15, 2021 09:21
[2021-03-15 11:44] VITALS: BP 96/63
--- NOTE | 2021-03-15 12:02 | Occupational Therapy Eval ---
OT Evaluation-General/PLF Medical Diagnosis Admission Date Mar 10, 2021 at 20:45 Medical Diagnosis: heart failure, cardiomyopathy Onset Date: Mar 10, 2021 Therapy Diagnosis Therapy Diagnosis: Weakness Height/Weight Height (Feet): 5 Height (Inches): 8 Weight (Pounds): 175 Precautions Precautions/Isolations: Contact Isolation Weight Bear Status Weight Bearing Restriction: Weight Bearing/Tolerated Referral Physician: Lolita Akins DO Referral Reason: Activity Tolerance, Self Care, Evaluation/Treatment, Strengthening/ROM Medical History Pertinent Medical History: Arthritis, CAD, HTN Additional Medical History TIA, Arthritis, 13 stents Current History Lice found. Pt. currently in isolation Reviewed History: Yes Social History Home: Single Level Current Living Status: Significant Other Entry Into Home: Ramp Pt's girlfriend is bed bound and pt. takes care of her. She currently is hospitalized as well. ADL-Prior Level of Function SCALE: Activities may be completed with or without assistive devices. 9-Hhuzlekgzh-hgyejtk completes the activity by him/herself with no assistance from a helper. 5-Set-up or Clean-up Assistance-helper sets up or cleans up; patient completes activity. [place] assists only prior to or following the activity. 4-Supervision or Touching Assistance-helper provides verbal cues and/or touching/steadying and/or contact guard assistance as patient completes activity. Assistance may be provided throughout the activity or intermittently. 3-Partial/Moderate Assistance-helper does LESS THAN HALF the effort. [place] lifts, holds or supports trunk or limbs, but provides less than half the effort. 2-Substantial/Maximal Assistance-helper does MORE THAN HALF the effort. [place] lifts or holds trunk or limbs and provides more than half the effort. 1-Jjrqxvehs-nsivme does ALL the effort. Patient does none of the effort to complete the activity. Or, the assistance of 2 or more helpers is required for the patient to complete the activity. If activity was not attempted, code reason: 7-Patient Refused. 9-Not Applicable-not attempted and the patient did not perform the activity before the current illness, exacerbation or injury. 10-Not Attempted due to Environmental Limitations-(lack of equipment, weather restraints, etc.). 88-Not Attempted due to Medical Conditions or Safety Concerns. Self Care: Independent Functional Cognition: Unknown DME/Equipment: Tub/Shower OT Current Status Subjective No pain reported. Mental Status/Objective Patient Orientation: Person, Place Current Upper Extremity ROM WFL ADL-Treatment Lower Body Dressing (QC): 3 (Pt. states that he can't don one of his slipper socks because his toenail needs cut.) Toileting Hygiene (QC): 2 (Just prior to therapy entering, nursing reporpts that pt. had a bm on floor and urinateded in trashcan.) Other Treatments Pt. transferred supine-sit with min assist. Stood with walker and CGA and ambulated around room, multiple times, with CGA. Stood approximately 10 minutes overall. Transferred back to bed. All needs met and bed alarm set. Education OT Patient Education: Correct positioning, Modified ADL techniques, Progress toward Goal/Update tx plan, Purpose of tx/functional activities, Reviewed precautions, Rehab process, Transfer techniques Teaching Recipient: Patient OT Produce Inspector Goals Produce Inspector Goals Time Frame: Mar 29, 2021 Eating (QC): 6 Oral Hygiene (QC): 6 Toileting Hygiene (QC): 6 Upper Body Dressing (QC): 6 Lower Body Dressing (QC): 6 On/Off Footwear (QC): 6 Additional Goals: 1-Demonstrate ADL Tasks, 2-Verbalize Understanding, 3-Impr oveStrength/Halima 1=Demonstrate adherence to instructed precautions during ADL tasks. 2=Patient will verbalize/demonstrate understanding of assistive devices/modifications for ADL. 3=Patient will improve strength/tolerance for activity to enable patient to perform ADL's. OT Education/Plan Problem List/Assessment Assessment: Decreased Activ Tolerance, Impaired I ADL's, Impaired Self-Care Skills Discharge Recommendations Plan/Recommendations: Continue POC Treatment Plan/Plan of Care Patient would benefit from OT for education, treatment and training to promote independence in ADL's, mobility, safety and/or upper extremity function for ADL's. Plan of Care: ADL Retraining Treatment Duration: Mar 29, 2021 Frequency: 5 times per week Estimated Hrs Per Day: .25 hour per day Agreement: Yes Rehab Potential: Fair Time/GCodes Start Time: 10:40 Stop Time: 11:00 Total Time Billed (hr/min): 20 Billed Treatment Time 1, TANO SCANLON OT Mar 15, 2021 12:02
--- NOTE | 2021-03-15 12:57 | Progress Note - Surgery ---
Subjective Date Seen by a Provider: Mar 15, 2021 Time Seen by a Provider: 12:53 Subjective/Events-last exam Patient is feeling better today. His breathing is a lot better. Feels like he can do a little bit more. He has no other complaints at this time. He denies any nausea vomiting fever sweats chills shortness of breath or chest pain at this time. Chest x-ray showing right basilar infiltrate ultrasound performed at bedside demonstrating minimal fluid in bilateral chest not enough to drain. Objective Exam Vital Signs Date Time Temp Pulse Resp B/P (MAP) Pulse Ox O2 Delivery O2 Flow Rate FiO2 03/15/21 11:44 35.3 70 18 96/63 (74) 99 Room Air 03/15/21 08:00 100 Room Air 03/15/21 08:00 35.3 92 20 94/60 (71) 99 Room Air 03/15/21 03:50 100 Room Air 03/15/21 03:49 36.3 88 18 100/65 (77) 100 Room Air 03/15/21 00:00 97 Room Air 03/14/21 23:12 36.9 78 22 94/57 (69) 97 Room Air 03/14/21 20:10 91 Room Air 03/14/21 20:00 37.2 102 22 110/76 (87) 91 Room Air 03/14/21 18:29 Room Air 03/14/21 16:00 36.8 112 16 90/59 (69) 100 Room Air I & O 03/15/21 07:00 Intake Total 1410 ml Output Total 800 ml Balance 610 ml Capillary Refill : Less Than 3 Seconds General Appearance: No Apparent Distress, Anxious, Chronically ill, Thin HEENT: PERRL/EOMI Neck: Full Range of Motion, Non Tender Respiratory: Chest Non Tender, No Accessory Muscle Use, No Respiratory Distress Cardiovascular: Regular Rate, Rhythm, No JVD, Irregularly Irregular, Other (rate controlledf) Gastrointestinal: non tender, soft Extremity: No Pedal Edema, Pedal Edema, Other (Less erythema left medial foot very shallow ulceration , scabbed over) Neurologic/Psychiatric: Alert, Oriented x3, Other (hard of hearing) Skin: Normal Color, Warm/Dry Lymphatic: No Adenopathy Results Lab Laboratory Tests 03/14/21 15:30: Body Fluid Source THORACEN, Body Fluid Color PALE YELLOW, Body Fluid Appearance SLT CLDY, Body Fluid pH , Body Fluid WBC 293, Body Fluid RBC 438, Body Fluid Polynuclear WBCs 22, Body Fluid Mononuclear WBCs 53, Body Fluid Lymphocytes 25, Body Fluid Eosinophils 0, Body Fluid Other Cells 0, Body Fluid Glucose 273, Body Fluid Total Protein 0.8, Body Fluid Albumin 0.5, Body Fluid Lactate Dehydrogenase 44, Body Fluid Amylase 25, Body Fluid Triglycerides 10 03/14/21 16:02: Glucometer 203H 03/14/21 20:11: Glucometer 20*L 03/14/21 20:19: Glucometer 276H 03/14/21 20:37: Glucometer 158H 03/14/21 21:23: Glucometer 131H 03/14/21 22:25: Glucometer 73 03/14/21 23:05: Glucometer 67L 03/14/21 23:42: Glucometer 63L 03/15/21 00:53: Glucometer 101 03/15/21 03:36: Glucometer 101 03/15/21 05:24: Glucometer 79 03/15/21 06:21: White Blood Count 11.8H, Red Blood Count 4.51, Hemoglobin 11.8L, Hematocrit 38L, Mean Corpuscular Volume 83, Mean Corpuscular Hemoglobin 26, Mean Corpuscular Hemoglobin Concent 31L, Red Cell Distribution Width 15.9H, Platelet Count 275, Mean Platelet Volume 9.7, Immature Granulocyte % (Auto) 1, Neutrophils (%) (Auto) 79H, Lymphocytes (%) (Auto) 13, Monocytes (%) (Auto) 6, Eosinophils (%) (Auto) 1, Basophils (%) (Auto) 0, Neutrophils # (Auto) 9.4H, Lymphocytes # (Auto) 1.5, Monocytes # (Auto) 0.7, Eosinophils # (Auto) 0.2, Basophils # (Auto) 0.1, Immature Granulocyte # (Auto) 0.1, Sodium Level 138, Potassium Level 3.9, Chloride Level 101, Carbon Dioxide Level 28, Anion Gap 9, Blood Urea Nitrogen 21H, Creatinine 1.20, Estimat Glomerular Filtration Rate > 60, BUN/Creatinine Ratio 18, Glucose Level 97, Calcium Level 8.8, Corrected Calcium 9.9, Total Bilirubin 0.7, Aspartate Amino Transf (AST/SGOT) 21, Alanine Aminotransferase (ALT/SGPT) 17, Alkaline Phosphatase 132, Total Protein 5.4L, Albumin 2.6L 03/15/21 09:07: Glucometer 92 03/15/21 11:42: Glucometer 150H Microbiology 03/14/21 Gram Stain - Final, Resulted 03/14/21 Anaerobic Culture, Resulted Pending 03/14/21 Body Fluid Culture, Resulted Pending 03/14/21 Fungal Culture 1, Resulted Pending Assessment/Plan Assessment/Plan Assessment/Plan Shortness of breath Congestive heart failure Bilateral pleural effusions Left foot medial wound No need for further drainage at this time of pleural effusion. No evidence of any recurrence. If patient begins having shortness of breath may need repeat. Patient will need to follow-up on cytology. Patient with no new complaints at this time. Will sign off call if needed please. TAY RASCON DO Mar 15, 2021 12:57
[2021-03-15 15:26] VITALS: BP 91/54
--- NOTE | 2021-03-15 15:28 | Cardiology Progress Note ---
Progress Note-Cardiology Events since last exam Date Seen by Provider: Mar 15, 2021 Time Seen by Provider: 15:22 Events since last exam We are seeing him due to heart failure. He has been transferred [facility] to the medical/surgical floor. He states that his breathing has improved. He denies chest discomfort, palpitations, syncope, or lower extremity edema. Vitals Last set of Vitals Signs Vital Signs 03/11/21 03/14/21 03/15/21 00:26 12:00 11:44 Temp 35.3 Pulse 70 Resp 18 B/P (MAP) 96/63 (74) Pulse Ox 99 O2 Delivery Room Air O2 Flow Rate 2.00 FiO2 21 Labs Labs Laboratory Tests 03/15/21 06:21 Exam Vital Signs Vital Signs Date Time Temp Pulse Resp B/P (MAP) Pulse Ox O2 Delivery O2 Flow Rate FiO2 03/15/21 11:44 35.3 70 18 96/63 (74) 99 Room Air 03/14/21 12:00 2.00 03/11/21 00:26 21 Physical Exam General: Alert. No acute distress. He appears somewhat cachectic. Eye: No xanthelasma. HENT: Normocephalic. Neck: Jugular venous pressure does not appear elevated. Respiratory: Lungs are clear to auscultation. Respirations are non-labored. Breath sounds are equal. Symmetrical chest wall expansion. Cardiovascular: Normal rate. Regular rhythm. No murmur. No gallop. No edema. Gastrointestinal: Soft. Normal bowel sounds. Skin: Warm. Dry. Neurologic: Alert and oriented to person, place, time. Cranial nerves 3-11 grossly intact. Psychiatric: Cooperative. Appropriate mood & affect. Labs Laboratory Tests 03/14/21 15:30: Body Fluid Source THORACEN, Body Fluid Color PALE YELLOW, Body Fluid Appearance SLT CLDY, Body Fluid pH , Body Fluid WBC 293, Body Fluid RBC 438, Body Fluid Polynuclear WBCs 22, Body Fluid Mononuclear WBCs 53, Body Fluid Lymphocytes 25, Body Fluid Eosinophils 0, Body Fluid Other Cells 0, Body Fluid Glucose 273, Body Fluid Total Protein 0.8, Body Fluid Albumin 0.5, Body Fluid Lactate Dehydrogenase 44, Body Fluid Amylase 25, Body Fluid Triglycerides 10 03/14/21 16:02: Glucometer 203H 03/14/21 20:11: Glucometer 20*L 03/14/21 20:19: Glucometer 276H 03/14/21 20:37: Glucometer 158H 03/14/21 21:23: Glucometer 131H 03/14/21 22:25: Glucometer 73 03/14/21 23:05: Glucometer 67L 03/14/21 23:42: Glucometer 63L 03/15/21 00:53: Glucometer 101 03/15/21 03:36: Glucometer 101 03/15/21 05:24: Glucometer 79 03/15/21 06:21: White Blood Count 11.8H, Red Blood Count 4.51, Hemoglobin 11.8L, Hematocrit 38L, Mean Corpuscular Volume 83, Mean Corpuscular Hemoglobin 26, Mean Corpuscular Hemoglobin Concent 31L, Red Cell Distribution Width 15.9H, Platelet Count 275, Mean Platelet Volume 9.7, Immature Granulocyte % (Auto) 1, Neutrophils (%) (Auto) 79H, Lymphocytes (%) (Auto) 13, Monocytes (%) (Auto) 6, Eosinophils (%) (Auto) 1, Basophils (%) (Auto) 0, Neutrophils # (Auto) 9.4H, Lymphocytes # (Auto) 1.5, Monocytes # (Auto) 0.7, Eosinophils # (Auto) 0.2, Basophils # (Auto) 0.1, Immature Granulocyte # (Auto) 0.1, Sodium Level 138, Potassium Level 3.9, Chloride Level 101, Carbon Dioxide Level 28, Anion Gap 9, Blood Urea Nitrogen 21H, Creatinine 1.20, Estimat Glomerular Filtration Rate > 60, BUN/Creatinine Ratio 18, Glucose Level 97, Calcium Level 8.8, Corrected Calcium 9.9, Total Bilirubin 0.7, Aspartate Amino Transf (AST/SGOT) 21, Alanine Aminotransferase (ALT/SGPT) 17, Alkaline Phosphatase 132, Total Protein 5.4L, Albumin 2.6L 03/15/21 09:07: Glucometer 92 03/15/21 11:42: Glucometer 150H Microbiology 03/14/21 Gram Stain - Final, Resulted 03/14/21 Anaerobic Culture, Resulted Pending 03/14/21 Body Fluid Culture, Resulted Pending 03/14/21 Fungal Culture 1, Resulted Pending Diagnosis/Problems Diagnosis/Problems (1) Acute on chronic systolic heart failure Assessment & Plan: Symptomatically improved. Chest x-ray from this morning was clear. He continues on IV furosemide. I will take the liberty of adding spironolactone. He is receiving a fair amount of oral potassium since he is taking IV furosemide. I will discontinue the oral potassium since we are starting spironolactone. I will obtain a follow-up metabolic panel in the morning. I suspect he may be euvolemic by tomorrow and might be able to be discharged at that time. His regular social worker delinquency prevention is in [place]. (2) Cardiomyopathy Assessment & Plan: I suspect this may be ischemic cardiomyopathy given the number of coronary stents he is reported to have. His most recent echocardiogram earlier this year showed moderate left ventricular systolic dysfunction. He is on carvedilol and lisinopril. As above, I will add spironolactone. (3) Coronary artery disease without angina pectoris Assessment & Plan: He is not having any angina at this time. I recommend he continue aspirin, beta-mellisa, and statin medication. (4) Essential hypertension Assessment & Plan: Blood pressures have been well controlled and at sometimes actually borderline hypotensive. We will need to follow his blood pressures closely with the intravenous diuresis. We may need to back off on his antihypertensive medication if he develops symptomatic hypotension. (5) Mixed hyperlipidemia Assessment & Plan: Continue statin medication. NED ZHANG JR, MD Mar 15, 2021 15:28
[2021-03-15] MEDS ORDERED: SPIRONOLACTONE 25 MG (ALDACTONE) TAB PO NR (15:30)
[2021-03-15] MEDS: TAMSULOSIN 0.4 MG (FLOMAX) CAP PO SCH (16:52)
[2021-03-15 19:11] VITALS: BP 89/63
[2021-03-15] MEDS: CYCLOBENZAPRINE 10 MG (FLEXERIL) TAB PO SCH (20:18)
[2021-03-15] MEDS: AMITRIPTYLINE 10 MG (ELAVIL) TAB PO SCH (20:25)
[2021-03-15 23:51] VITALS: BP 86/63
[2021-03-16 04:34] VITALS: BP 92/58
[2021-03-16 05:27] LABS: BASOPHILS # (AUTO) 0.1 10^3/uL (0.0-0.1); BASOPHILS % (AUTO) 2 % (0-10); EOSINOPHILS # (AUTO) 0.4 10^3/uL (0.0-0.3); EOSINOPHILS % (AUTO) 5 % (0-10); HEMATOCRIT 38 % (40-54); LYMPHOCYTES # (AUTO) 1.4 10^3/uL (1.0-4.0); LYMPHOCYTES % (AUTO) 16 % (12-44); MEAN CORPUSCULAR HEMOGLOBIN 26 pg (25-34); MEAN CORPUSCULAR HGB CONC 32 g/dL (32-36); MEAN CORPUSCULAR VOLUME 83 fL (80-99); MEAN PLATELET VOLUME 10.2 fL (9.0-12.2); MONOCYTES # (AUTO) 0.7 10^3/uL (0.0-1.0); MONOCYTES % (AUTO) 8 % (0-12); NEUTROPHILS # (AUTO) 6.2 10^3/uL (1.8-7.8); NEUTROPHILS % (AUTO) 70 % (42-75); PLATELET COUNT 313 10^3/uL (130-400); WHITE BLOOD COUNT 8.9 10^3/uL (4.3-11.0)
[2021-03-16 05:38] LABS: ALBUMIN 2.8 GM/DL (3.2-4.5)
[2021-03-16 05:39] LABS: POTASSIUM 4.5 MMOL/L (3.6-5.0)
[2021-03-16 05:40] LABS: CALCIUM 8.9 MG/DL (8.5-10.1)
[2021-03-16 05:41] LABS: TOTAL PROTEIN 5.5 GM/DL (6.4-8.2)
[2021-03-16 05:43] LABS: BILIRUBIN,TOTAL 0.6 MG/DL (0.1-1.0)
[2021-03-16 05:45] LABS: CREATININE SERUM 1.24 MG/DL (0.60-1.30)
--- NOTE | 2021-03-16 06:08 | Progress Note - Hospitalist ---
Subjective HPI/CC On Admission Date Seen by Provider: Mar 16, 2021 Time Seen by Provider: 11:00 Patient presents ER by EMS from home with chief complaint of continuing to have increasing swelling around his legs and shortness of air and occasional cough. No fevers or chills. He says he left AGAINST MEDICAL ADVICE this afternoon at about 1600 from the floor where Dr. Zuniga was treating him for his heart failure because it was taking too long and he had to get home and take care of his girlfriend. He is the primary caregiver for her. EMS states the house was in advanced state of disrepair, with animals and insects all over the home. Patient denies any nausea chest pain dysuria diarrhea or constipation. He has a history of 13 stents. EMS had initiated a liter of fluids on route because his blood pressure is 102/60. His primary care hollow handle knife assembler is Dr. Tam at [facility]. He was being treated for acute on chronic congestive heart failure. He had a minimal troponin elevation likely due to acutely decompensated heart failure, hypertension, hyperlipidemia, stroke 4 years ago, diabetes type 2 and a strong family history of coronary disease in his mother and father. Echocardiogram from yesterday by Dr. Zuniga demonstrates EF of 30 to 35% with moderate diffuse hypokinesis and normal wall thickness. CT angio of the chest from yesterday demonstrates no pulmonary emboli. He was being treated with cefepime for cellulitis of the bilateral lower extremity.Patient developed hypoglycemia overnight low at 15 he did wake up with an amp of D50 with normalization of his blood sugar. He was sleeping soundly with a blood sugar of little over 100 wishing to be left alone giving no history not answering questions. He was not agitated and did not appear to be confused. Nursing staff did bring an insect in a cup to me that has the appearance of an adult female louse with history that he had been bathed and there a fair number of insects crawling on him. He had no evidence for bites and I did not see any nits. He did not appear to be in acute distress. Subjective/Events-last exam Pt doing pretty well Pending longterm depending on insurance approval Hgb 12, WC 8.9 He will be treated for lice Review of Systems General: Fatigue, Malaise Objective Exam Vital Signs Vital Signs Date Time Temp Pulse Resp B/P (MAP) Pulse Ox O2 Delivery O2 Flow Rate FiO2 7/2/21 04:35 36.2 102 18 99/64 (76) 97 Room Air 03/14/21 12:00 2.00 03/11/21 00:26 21 Capillary Refill : Less Than 3 Seconds General Appearance: No Apparent Distress, WD/WN, Chronically ill, Thin Respiratory: Lungs Clear Cardiovascular: Regular Rate, Rhythm Neurologic/Psychiatric: Alert, Oriented x3 Results/Procedures Lab Patient resulted labs reviewed. Assessment/Plan Assessment and Plan Assess & Plan/Chief Complaint Assessment: 1. Acute on chronic systolic heart failure with underlying dilated cardiomyopathy aggravated by noncompliance continue IV diuretics. 2. Favor venous insufficiency related dermatitis aggravated by right heart failure caused by left heart failure we will hold antibiotics for now. 3. Contact isolation due to likely lice infestation. 4.episode of atrial flutter requiring cardiac stepdown transfer [facility] drip Plan: Appreciate cardiology consult Monitor closely 03/14/21: Appreciate Dr. Mckeon Thoracentesis removed 2500 cc from the right May need thoracentesis on the left Appreciate cardiology Therapy ordered for longterm placement planning 03/15/2021: Moved to fourth floor Monitor closely Oxygen Dr. Mckeon appreciated Cardiology appreciated 03/16/2021: Awaiting insurance approval for longterm placement Critical Care Critically Ill Patient POLLOJULIENNE PEGUERO Mar 16, 2021 06:08
[2021-03-16] MEDS: CATHETER FLUSH 10 ML SYR IV SCH ×3 (06:34→19:36)
[2021-03-16] MEDS: inSUlin ASPART (NovoLOG) 1 UNIT/0.01 ML (CHARGE PER UNIT) SC SCH ×4 (06:34→21:44)
[2021-03-16 08:14] VITALS: BP 104/64
--- NOTE | 2021-03-16 08:24 | Pulmonary Progress Note ---
Subjective Date Seen by a Provider: Mar 16, 2021 Time Seen by a Provider: 09:00 Subjective/Events-last exam no major events over night Review of Systems General: Fatigue Sepsis Event Evaluation Height, Weight, BMI Height: 5'8" Weight: 175lbs. oz. 79.575764we; 22.17 BMI Method:Stated Focused Exam Respiratory: Chest Non Tender, Lungs Clear Exam Exam Patient acknowledged, consented, and participated in this virtual visit which was conducted using real time audio/video Vital Signs Date Time Temp Pulse Resp B/P (MAP) Pulse Ox O2 Delivery O2 Flow Rate FiO2 03/16/21 08:14 36.4 14 18 104/64 (77) 95 Room Air 03/16/21 07:57 Room Air 03/16/21 04:34 36.6 101 18 92/58 (69) 99 Room Air 03/15/21 23:51 36.6 94 20 86/63 (71) 98 Room Air 03/15/21 20:00 98 Room Air 03/15/21 19:11 36.4 97 20 89/63 (72) 99 Room Air 03/15/21 15:40 Room Air 03/15/21 15:26 36.3 97 16 91/54 (66) 98 Room Air 03/15/21 11:44 35.3 70 18 96/63 (74) 99 Room Air I & O 03/16/21 07:00 Intake Total 920 ml Balance 920 ml Height & Weight Height: 5'8" Weight: 175lbs. oz. 79.728099pw; 22.17 BMI Method:Stated General Appearance: No Apparent Distress, WD/WN, Chronically ill HEENT: PERRL/EOMI Neck: Full Range of Motion, Non Tender Respiratory: Lungs Clear, Decreased Breath Sounds Cardiovascular: Regular Rate, Rhythm Capillary Refill: Less Than 3 Seconds Gastrointestinal: normal bowel sounds, non tender, soft Extremity: Normal Inspection (improved edema), No Pedal Edema, Pedal Edema, Other (Less erythema left medial foot very shallow ulceration , scabbed over) Neurologic/Psychiatric: Alert, Oriented x3, Depressed Affect Skin: Normal Color, Warm/Dry Lymphatic: No Adenopathy Results Lab Laboratory Tests 03/15/21 06:21 03/16/21 05:19 Assessment/Plan Assessment/Plan Acute hypoxemic resp failure resolved/ improved fluid overload resobved with diuresis continue gentle diuresis, being mindful of hemodynamics and kidney function we will follow MONTRELL GARCIA MD Mar 16, 2021 08:24
[2021-03-16] MEDS: FUROSEMIDE 40 MG/4 ML INJ (LASIX) IV SCH ×2 (09:06→16:11)
[2021-03-16] MEDS: CEPHALEXIN 250 MG (KEFLEX) CAP PO SCH ×4 (09:06→19:35)
[2021-03-16] MEDS: SPIRONOLACTONE 25 MG (ALDACTONE) TAB PO SCH (09:06)
[2021-03-16] MEDS: LORATADINE (CLARITIN) 10 MG TAB PO SCH (09:06)
[2021-03-16] MEDS: MONTELUKAST 10 MG (SINGULAIR) TAB PO SCH (09:06)
[2021-03-16] MEDS: lisINopril 5 MG (PRINIVIL) TABLET PO SCH (09:08)
[2021-03-16] MEDS: ASPIRIN 81 MG CHEW (CHILDREN'S ASA) PO SCH (09:08)
[2021-03-16] MEDS: ROSUVASTATIN 20 MG (CRESTOR) TABLET PO SCH (09:08)
[2021-03-16] MEDS ORDERED: CARV6.252 PO (11:10)
[2021-03-16] MEDS ORDERED: LISI-729 PO (11:10)
[2021-03-16] MEDS ORDERED: Gabapentin PO (11:10)
[2021-03-16] MEDS ORDERED: CEPH250C PO (11:10)
[2021-03-16] MEDS ORDERED: FURO40TA4 PO (11:10)
[2021-03-16] MEDS ORDERED: INSU100V5 SQ (11:10)
[2021-03-16] MEDS ORDERED: INSU100V16 SC (11:10)
[2021-03-16] MEDS ORDERED: ASPI81TA64 PO (11:10)
[2021-03-16] MEDS ORDERED: SPIR25TA5 PO (11:10)
[2021-03-16] MEDS ORDERED: LINDANE 1% SHAMPOO (KWELL) 60ML BTL TOP ONE (11:30)
--- NOTE | 2021-03-16 11:38 | Physical Therapy Daily Note ---
PT Daily Note-Current Subjective Patient agrees to PT. He states he just wants to go home. Mental Status Patient Orientation: Normal For Age Transfers SCALE: Activities may be completed with or without assistive devices. 4-Sbcgnftemt-opwjdvb completes the activity by him/herself with no assistance from a helper. 5-Set-up or Clean-up Assistance-helper sets up or cleans up; patient completes activity. [place] assists only prior to or following the activity. 4-Supervision or Touching Assistance-helper provides verbal cues and/or t ouching/steadying and/or contact guard assistance as patient completes activity. Assistance may be provided throughout the activity or intermittently. 3-Partial/Moderate Assistance-helper does LESS THAN HALF the effort. [place] lifts, holds or supports trunk or limbs, but provides less than half the effort. 2-Substantial/Maximal Assistance-helper does MORE THAN HALF the effort. [place] lifts or holds trunk or limbs and provides more than half the effort. 6-Kmpaymwta-dxprqp does ALL the effort. Patient does none of the effort to complete the activity. Or, the assistance of 2 or more helpers is required for the patient to complete the activity. If activity was not attempted, code reason: 7-Patient Refused. 9-Not Applicable-not attempted and the patient did not perform the activity before the current illness, exacerbation or injury. 10-Not Attempted due to Environmental Limitations-(lack of equipment, weather restraints, etc.). 88-Not Attempted due to Medical Conditions or Safety Concerns. Lying to Sitting/Side of Bed(Q: 6 Sit to Stand (QC): 6 Chair/Spk-yx-Clrfq Xfer(QC): 6 Gait Training Does the Patient Walk?: Yes Distance: 150' in room Walk 10 feet (QC): 6 Walk 50 ft with 2 Turns(QC): 6 Walk 150 ft (QC): 6 Gait Assistive Device: None safe and functional with no deviation Assessment Patient up in recliner with needs met. Patient tolerated treatment well. PT Residential Goals Residential Goals PT Janitor Cleaner Goals Time Frame: Mar 22, 2021 Roll Left & Right (QC): 6 Sit to Lying (QC): 6 Lying-Sitting on Side/Bed(QC): 6 Sit to Stand (QC): 6 Chair/Gfq-zx-Ctslf Xfer(QC): 6 Walk 10 feet (QC): 6 Walk 50ft with 2 Turns (QC): 6 Walk 150 ft (QC): 6 PT Plan Treatment/Plan Treatment Plan: Continue Plan of Care Treatment Plan: Education, Functional Activity [place], Functional Strength, Gait, Safety, Therapeutic Exercise, Transfers Treatment Duration: Mar 22, 2021 Frequency: 6 times per week Estimated Hrs Per Day: .25 hour per day Patient and/or Family Agrees t: Yes Time/GCodes Time In: 1110 Time Out: 1125 Total Billed Treatment Time: 15 Total Billed Treatment 1 visit FA 15 min RICHA DANGELO PT Mar 16, 2021 11:38
--- NOTE | 2021-03-16 11:48 | Occupational Ther Daily Note ---
OT Current Status-Daily Note Subjective Pt alert, lying in bed. Pt agrees to therapy. No c/o pain. Pt asked why he was a fall risk and why he was in isolation. Pt educated on reasons. Mental Status/Objective Patient Orientation: Person, Place, Time, Situation ADL-Treatment Therapy Code Descriptions/Definitions Functional [place] Measure: 0=Not Assessed/NA 4=Minimal Assistance 1=Total Assistance 5=Supervision or Setup 2=Maximal Assistance 6=Modified [place] 3=Moderate Assistance 7=Complete IndependenceSCALE: Activities may be completed with or without assistive devices. 4-Gakdpzixxo-jvbkuil completes the activity by him/herself with no assistance from a helper. 5-Set-up or Clean-up Assistance-helper sets up or cleans up; patient completes activity. [place] assists only prior to or following the activity. 4-Supervision or Touching Assistance-helper provides verbal cues and/or touching/steadying and/or contact guard assistance as patient completes activity. Assistance may be provided throughout the activity or intermittently. 3-Partial/Moderate Assistance-helper does LESS THAN HALF the effort. [place] lifts, holds or supports trunk or limbs, but provides less than half the effort. 2-Substantial/Maximal Assistance-helper does MORE THAN HALF the effort. [place] lifts or holds trunk or limbs and provides more than half the effort. 0-Djdwaourc-uuntxi does ALL the effort. Patient does none of the effort to complete the activity. Or, the assistance of 2 or more helpers is required for the patient to complete the activity. If activity was not attempted, code reason: 7-Patient Refused. 9-Not Applicable-not attempted and the patient did not perform the activity before the current illness, exacerbation or injury. 10-Not Attempted due to Environmental Limitations-(lack of equipment, weather restraints, etc.). 88-Not Attempted due to Medical Conditions or Safety Concerns. Bathing Location: Buttocks Other Treatment Pt independent with bed mobility. Pt ambulated around room without AD independently. Pt adjusted sock standing with one hand on one foot while stabilizing self with hand on wall. Pt then continued to ambulate around room and sat in recliner. Pt stated that he is getting up independently and using BSC to complete own toileting and hygiene. Pt then requested a Sprite which [facility] got for pt. Pt then requested one of his snacks and got up bent over to look through bags and retrieve item then take back to chair. After therapy, pt sitting in recliner with call light/phone in reach. All needs met in room. OT Php Architect Goals Php Architect Goals Time Frame: Mar 29, 2021 Eating (QC): 6 Oral Hygiene (QC): 6 Toileting Hygiene (QC): 6 Upper Body Dressing (QC): 6 Lower Body Dressing (QC): 6 On/Off Footwear (QC): 6 Additional Goals: 1-Demonstrate ADL Tasks, 2-Verbalize Understanding, 3- ImproveStrength/Halima 1=Demonstrate adherence to instructed precautions during ADL tasks. 2=Patient will verbalize/demonstrate understanding of assistive devices/modifications for ADL. 3=Patient will improve strength/tolerance for activity to enable patient to perform ADL's. OT Education/Plan Problem List/Assessment Assessment: Decreased UE Strength Discharge Recommendations Plan/Recommendations: Continue POC Treatment Plan/Plan of Care Patient would benefit from OT for education, treatment and training to promote independence in ADL's, mobility, safety and/or upper extremity function for ADL's. Plan of Care: ADL Retraining Treatment Duration: Mar 29, 2021 Frequency: 5 times per week Estimated Hrs Per Day: .25 hour per day Agreement: Yes Rehab Potential: Fair Time/GCodes Start Time: 11:00 Stop Time: 11:25 Total Time Billed (hr/min): 25 Billed Treatment Time 1 visit-FA 2 (25 min) BARBIE PAVON Mar 16, 2021 11:48
[2021-03-16 12:52] VITALS: BP 102/73
[2021-03-16 15:36] VITALS: BP 92/52
[2021-03-16] MEDS: TAMSULOSIN 0.4 MG (FLOMAX) CAP PO SCH (18:33)
[2021-03-16 19:33] VITALS: BP 87/44
[2021-03-16] MEDS: AMITRIPTYLINE 10 MG (ELAVIL) TAB PO SCH (19:35)
[2021-03-16] MEDS: CYCLOBENZAPRINE 10 MG (FLEXERIL) TAB PO SCH (19:36)
[2021-03-16 23:48] VITALS: BP 87/45
[2021-03-17 03:48] VITALS: BP 87/45
[2021-03-17 04:35] VITALS: BP 99/64
[2021-03-17] MEDS: inSUlin ASPART (NovoLOG) 1 UNIT/0.01 ML (CHARGE PER UNIT) SC SCH ×2 (05:22→11:30)
[2021-03-17] MEDS: CATHETER FLUSH 10 ML SYR IV SCH (05:22)
[2021-03-17 05:45] LABS: BASOPHILS # (AUTO) 0.1 10^3/uL (0.0-0.1); BASOPHILS % (AUTO) 2 % (0-10); EOSINOPHILS # (AUTO) 0.4 10^3/uL (0.0-0.3); EOSINOPHILS % (AUTO) 5 % (0-10); HEMATOCRIT 38 % (40-54); HEMOGLOBIN 11.8 g/dL (13.3-17.7); LYMPHOCYTES # (AUTO) 1.2 10^3/uL (1.0-4.0); LYMPHOCYTES % (AUTO) 16 % (12-44); MEAN CORPUSCULAR HEMOGLOBIN 26 pg (25-34); MEAN CORPUSCULAR HGB CONC 31 g/dL (32-36); MEAN CORPUSCULAR VOLUME 83 fL (80-99); MONOCYTES # (AUTO) 0.7 10^3/uL (0.0-1.0); MONOCYTES % (AUTO) 9 % (0-12); NEUTROPHILS # (AUTO) 5.2 10^3/uL (1.8-7.8); NEUTROPHILS % (AUTO) 67 % (42-75); PLATELET COUNT 324 10^3/uL (130-400); WHITE BLOOD COUNT 7.7 10^3/uL (4.3-11.0)
[2021-03-17 06:00] LABS: ALBUMIN 2.7 GM/DL (3.2-4.5); POTASSIUM 4.2 MMOL/L (3.6-5.0)
[2021-03-17 06:02] LABS: CALCIUM 8.4 MG/DL (8.5-10.1)
[2021-03-17 06:03] LABS: TOTAL PROTEIN 5.2 GM/DL (6.4-8.2)
[2021-03-17 06:05] LABS: BILIRUBIN,TOTAL 0.4 MG/DL (0.1-1.0)
[2021-03-17 06:06] LABS: CREATININE SERUM 1.29 MG/DL (0.60-1.30)
[2021-03-17 08:41] VITALS: BP 89/61
[2021-03-17] MEDS: lisINopril 5 MG (PRINIVIL) TABLET PO SCH (08:42)
[2021-03-17] MEDS: ROSUVASTATIN 20 MG (CRESTOR) TABLET PO SCH (08:43)
[2021-03-17] MEDS: FUROSEMIDE 40 MG/4 ML INJ (LASIX) IV SCH (08:43)
[2021-03-17] MEDS: CEPHALEXIN 250 MG (KEFLEX) CAP PO SCH (08:43)
[2021-03-17] MEDS: LORATADINE (CLARITIN) 10 MG TAB PO SCH (08:43)
[2021-03-17] MEDS: MONTELUKAST 10 MG (SINGULAIR) TAB PO SCH (08:44)
[2021-03-17] MEDS: ASPIRIN 81 MG CHEW (CHILDREN'S ASA) PO SCH (08:44)
[2021-03-17] MEDS: SPIRONOLACTONE 25 MG (ALDACTONE) TAB PO SCH (08:44)
--- NOTE | 2021-03-17 08:46 | Physical Therapy Daily Note ---
PT Daily Note-Current Subjective Patient agrees to PT. Mental Status Patient Orientation: Normal For Age Transfers SCALE: Activities may be completed with or without assistive devices. 9-Oqalpiyytd-muguexc completes the activity by him/herself with no assistance from a helper. 5-Set-up or Clean-up Assistance-helper sets up or cleans up; patient completes activity. [place] assists only prior to or following the activity. 4-Supervision or Touching Assistance-helper provides verbal cues and/or touching/steadying and/or contact guard assistance as patient completes activity. Assistance may be provided throughout the activity or intermittently. 3-Partial/Moderate Assistance-helper does LESS THAN HALF the effort. [place] lifts, holds or supports trunk or limbs, but provides less than half the effort. 2-Substantial/Maximal Assistance-helper does MORE THAN HALF the effort. [place] lifts or holds trunk or limbs and provides more than half the effort. 2-Fwvhfjhct-woztxi does ALL the effort. Patient does none of the effort to complete the activity. Or, the assistance of 2 or more helpers is required for the patient to complete the activity. If activity was not attempted, code reason: 7-Patient Refused. 9-Not Applicable-not attempted and the patient did not perform the activity befo re the current illness, exacerbation or injury. 10-Not Attempted due to Environmental Limitations-(lack of equipment, weather re straints, etc.). 88-Not Attempted due to Medical Conditions or Safety Concerns. Lying to Sitting/Side of Bed(Q: 6 Sit to Stand (QC): 6 Gait Training Does the Patient Walk?: Yes Distance: 800' Walk 10 feet (QC): 6 Walk 50 ft with 2 Turns(QC): 6 Walk 150 ft (QC): 6 Gait Assistive Device: None safe and functional with no deviation Assessment Patient tolerated treatment well and returned to bed. Endurance improved PT Shelter Goals Geek Squad Manager Goals PT Shelter Goals Time Frame: Mar 22, 2021 Roll Left & Right (QC): 6 Sit to Lying (QC): 6 Lying-Sitting on Side/Bed(QC): 6 Sit to Stand (QC): 6 Chair/Orx-ux-Jljyp Xfer(QC): 6 Walk 10 feet (QC): 6 Walk 50ft with 2 Turns (QC): 6 Walk 150 ft (QC): 6 PT Plan Treatment/Plan Treatment Plan: Continue Plan of Care Treatment Plan: Education, Functional Activity Halima, Functional Strength, Gait, Safety, Therapeutic Exercise, Transfers Treatment Duration: Mar 22, 2021 Frequency: 6 times per week Estimated Hrs Per Day: .25 hour per day Patient and/or Family Agrees t: Yes Time/GCodes Time In: 820 Time Out: 831 Total Billed Treatment Time: 11 Total Billed Treatment 1 visit FA 11 min RICHA DANGELO PT Mar 17, 2021 08:46
--- NOTE | 2021-03-17 09:54 | Pulmonary Progress Note ---
Subjective Date Seen by a Provider: Mar 17, 2021 Time Seen by a Provider: 09:30 Subjective/Events-last exam Clinically improved; Review of Systems General: No Chills, No Night Sweats, No Fatigue, No Malaise, No Appetite, No Other Sepsis Event Evaluation Height, Weight, BMI Height: 5'8" Weight: 175lbs. oz. 79.624291in; 22.17 BMI Method:Stated Exam Exam Patient acknowledged, consented, and participated in this virtual visit which was conducted using real time audio/video Vital Signs Date Time Temp Pulse Resp B/P (MAP) Pulse Ox O2 Delivery O2 Flow Rate FiO2 03/17/21 08:41 107 16 89/61 (70) 98 Room Air 03/17/21 04:35 36.2 102 18 99/64 (76) 97 Room Air 03/17/21 03:48 36.3 108 98 03/16/21 23:48 36.3 108 18 87/45 (59) 98 Room Air 03/16/21 19:36 Room Air 03/16/21 19:33 36.5 101 18 87/44 (58) 98 Room Air 03/16/21 18:41 Room Air 03/16/21 15:36 36.8 92 16 92/52 (65) 97 Room Air 03/16/21 12:52 35.7 100 18 102/73 (83) 100 Room Air I & O 03/17/21 06:59 Intake Total 1675 ml Output Total 775 ml Balance 900 ml Height & Weight Height: 5'8" Weight: 175lbs. oz. 79.254067na; 22.17 BMI Method:Stated General Appearance: No Apparent Distress, WD/WN, Chronically ill, Cachetic, Thin HEENT: PERRL/EOMI Neck: Full Range of Motion, Non Tender Respiratory: Lungs Clear Cardiovascular: Regular Rate, Rhythm Capillary Refill: Less Than 3 Seconds Gastrointestinal: normal bowel sounds, non tender, soft Extremity: Normal Inspection (improved edema), No Pedal Edema, Pedal Edema, Other (Less erythema left medial foot very shallow ulceration , scabbed over) Neurologic/Psychiatric: Alert, Oriented x3 Skin: Normal Color, Warm/Dry Lymphatic: No Adenopathy Results Lab Laboratory Tests 03/16/21 05:19 03/17/21 05:09 Assessment/Plan Assessment/Plan Dyspnea due to CHF improved; continue diuress; 2 needs prior to dc will be evaluated. MONTRELL GARCIA MD Mar 17, 2021 09:53
--- NOTE | 2021-03-17 11:00 | Occupational Ther Daily Note ---
OT Current Status-Daily Note Subjective Pt laying in bed, agreeable to OT tx. ADL-Treatment Therapy Code Descriptions/Definitions Functional [place] Measure: 0=Not Assessed/NA 4=Minimal Assistance 1=Total Assistance 5=Supervision or Setup 2=Maximal Assistance 6=Modified [place] 3=Moderate Assistance 7=Complete IndependenceSCALE: Activities may be completed with or without assistive devices. 2-Vmdlnnfbgt-dqenidp completes the activity by him/herself with no assistance from a helper. 5-Set-up or Clean-up Assistance-helper sets up or cleans up; patient completes activity. [place] assists only prior to or following the activity. 4-Supervision or Touching Assistance-helper provides verbal cues and/or touching/steadying and/or contact guard assistance as patient completes activity. Assistance may be provided throughout the activity or intermittently. 3-Partial/Moderate Assistance-helper does LESS THAN HALF the effort. [place] lifts, holds or supports trunk or limbs, but provides less than half the effort. 2-Substantial/Maximal Assistance-helper does MORE THAN HALF the effort. [place] lifts or holds trunk or limbs and provides more than half the effort. 1-Ixekjojge-lqanzc does ALL the effort. Patient does none of the effort to com plete the activity. Or, the assistance of 2 or more helpers is required for the patient to complete the activity. If activity was not attempted, code reason: 7-Patient Refused. 9-Not Applicable-not attempted and the patient did not perform the activity before the current illness, exacerbation or injury. 10-Not Attempted due to Environmental Limitations-(lack of equipment, weather restraints, etc.). 88-Not Attempted due to Medical Conditions or Safety Concerns. Eating (QC): 6 On/Off Footwear: 6 Toileting Hygiene (QC): 6 (IND, pt able to get up from bed, locate urinal in room, use urinal) Other Treatment Pt laying in bed, transferred supine to sit EOB IND. Pt completed 2x10 reps shoulder flexion BUEs, and x20 reps elbow flexion/extension and finger flexion/extension. This was performed in order to increase BUE strength and activity tolerance. Pt stood from EOB, performed functional mobility around his room, located urinal, urinated, then placed urinal back on BSC, and returned to bed IND. Pt able to adjust his gripper socks IND. Per PT note, pt ambulated 800' IND without AD. Post tx, pt seated on EOB, call light in reach and all needs met. Education OT Patient Education: Correct positioning, Modified ADL techniques, Progress toward Goal/Update tx plan, Purpose of tx/functional activities, Rehab process Teaching Recipient: Patient Teaching Methods: Discussion Response to Teaching: Verbalize Understanding OT Trimming Machine Operator Goals Trimming Machine Operator Goals Time Frame: Mar 29, 2021 Eating (QC): 6 Oral Hygiene (QC): 6 Toileting Hygiene (QC): 6 Upper Body Dressing (QC): 6 Lower Body Dressing (QC): 6 On/Off Footwear (QC): 6 Additional Goals: 1-Demonstrate ADL Tasks, 2-Verbalize Understanding, 3- ImproveStrength/Halima 1=Demonstrate adherence to instructed precautions during ADL tasks. 2=Patient will verbalize/demonstrate understanding of assistive devices/modifications for ADL. 3=Patient will improve strength/tolerance for activity to enable patient to perform ADL's. OT Education/Plan Problem List/Assessment Assessment: No Skilled OT Needs ID'd No further skilled OT services indicated at this time as pt is at PLOF and IND with ADLs. d/c from OT. Discharge Recommendations Plan/Recommendations: Discharge/Goals Met Treatment Plan/Plan of Care Patient would benefit from OT for education, treatment and training to promote independence in ADL's, mobility, safety and/or upper extremity function for ADL's. Plan of Care: ADL Retraining Treatment Duration: Mar 29, 2021 Frequency: 5 times per week Estimated Hrs Per Day: .25 hour per day Agreement: Yes Rehab Potential: Fair Time/GCodes Start Time: 10:35 Stop Time: 10:50 Total Time Billed (hr/min): 15 Billed Treatment Time 1, EX JONH NO OT Mar 17, 2021 11:00
[2021-03-17 11:18] VITALS: BP 90/60
--- NOTE | 2021-03-17 11:35 | Progress Note - Hospitalist ---
Subjective HPI/CC On Admission Date Seen by Provider: Mar 17, 2021 Patient presents ER by EMS from home with chief complaint of continuing to have increasing swelling around his legs and shortness of air and occasional cough. No fevers or chills. He says he left AGAINST MEDICAL ADVICE this afternoon at about 1600 from the floor where Dr. Zuniga was treating him for his heart failure because it was taking too long and he had to get home and take care of his girlfriend. He is the primary caregiver for her. EMS states the house was in advanced state of disrepair, with animals and insects all over the home. Patient denies any nausea chest pain dysuria diarrhea or constipation. He has a history of 13 stents. EMS had initiated a liter of fluids on route because his blood pressure is 102/60. His primary care housekeeper child care is Dr. Tam at [facility]. He was being treated for acute on chronic congestive heart failure. He had a minimal troponin elevation likely due to acutely decompensated heart failure, hypertension, hyperlipidemia, stroke 4 years ago, diabetes type 2 and a strong family history of coronary disease in his mother and father. Echocardiogram from yesterday by Dr. Zuniga demonstrates EF of 30 to 35% with moderate diffuse hypokinesis and normal wall thickness. CT angio of the chest from yesterday demonstrates no pulmonary emboli. He was being treated with cefepime for cellulitis of the bilateral lower extremity.Patient developed hypoglycemia overnight low at 15 he did wake up with an amp of D50 with normalization of his blood sugar. He was sleeping soundly with a blood sugar of little over 100 wishing to be left alone giving no history not answering questions. He was not agitated and did not appear to be confused. Nursing staff did bring an insect in a cup to me that has the appearance of an adult female louse with history that he had been bathed and there a fair number of insects crawling on him. He had no evidence for bites and I did not see any nits. He did not appear to be in acute distress. Objective Exam Vital Signs Vital Signs Date Time Temp Pulse Resp B/P (MAP) Pulse Ox O2 Delivery O2 Flow Rate FiO2 03/17/21 11:18 35.8 102 16 90/60 (70) 100 Room Air 03/14/21 12:00 2.00 03/11/21 00:26 21 Capillary Refill : Less Than 3 Seconds Results/Procedures Lab Laboratory Tests 7/2/21 05:09 Patient resulted labs reviewed. Assessment/Plan Assessment and Plan Assess & Plan/Chief Complaint Assessment: 1. Acute on chronic systolic heart failure with underlying dilated cardiomyopathy aggravated by noncompliance continue IV diuretics. 2. Favor venous insufficiency related dermatitis aggravated by right heart failure caused by left heart failure we will hold antibiotics for now. 3. Contact isolation due to likely lice infestation. 4.episode of atrial flutter requiring cardiac stepdown transfer on [facility] drip Plan: Appreciate cardiology consult Monitor closely 03/14/21: Appreciate Dr. Mckeon Thoracentesis removed 2500 cc from the right May need thoracentesis on the left Appreciate cardiology Therapy ordered for long-term placement planning 03/15/2021: Moved to fourth floor Monitor closely Oxygen Dr. Mckeon appreciated Cardiology appreciated 03/16/2021: Awaiting insurance approval for long-term placement Critical Care Critically Ill Patient JULIENNE ABAD DO Mar 17, 2021 11:34
--- NOTE | 2021-03-17 11:46 | Discharge Summary ---
Discharge Summary Hospital Course Was the Problem List Reviewed?: Yes Problems/Dx: (1) Acute on chronic systolic heart failure (2) Cardiomyopathy (3) Coronary artery disease without angina pectoris (4) Essential hypertension (5) Mixed hyperlipidemia Hospital Course Date of Admission: Mar 10, 2021 at 20:45 Admission Diagnosis : Family Physician/Provider: No,Local Physician Date of Discharge: 03/17/21 Discharge Diagnosis: Acute on chronic congestive heart failure, cardiomyopathy requiring LifeVest, chronic debility, chronic kidney disease Hospital Course: Patient had a standard hospital course after he was admitted after leaving [place] for acute exacerbation of congestive heart failure. Patient was found to have a low ejection fraction requiring LifeVest at discharge. Patient required diuresis oxygen and multiple medications from cardiology. Poor prognosis long- term given the fact of his chronic debility and just overall apathy. Labs and Pending Lab Test: Laboratory Tests 03/16/21 15:38: Glucometer 267H 03/16/21 20:44: Glucometer 254H 03/17/21 05:09: White Blood Count 7.7, Red Blood Count 4.56, Hemoglobin 11.8L, Hematocrit 38L, Mean Corpuscular Volume 83, Mean Corpuscular Hemoglobin 26, Mean Corpuscular Hemoglobin Concent 31L, Red Cell Distribution Width 15.2H, Platelet Count 324, Mean Platelet Volume 10.0, Immature Granulocyte % (Auto) 1, Neutrophils (%) (Auto) 67, Lymphocytes (%) (Auto) 16, Monocytes (%) (Auto) 9, Eosinophils (%) (Auto) 5, Basophils (%) (Auto) 2, Neutrophils # (Auto) 5.2, Lymphocytes # (Auto) 1.2, Monocytes # (Auto) 0.7, Eosinophils # (Auto) 0.4H, Basophils # (Auto) 0.1, Immature Granulocyte # (Auto) 0.1, Sodium Level 132L, Potassium Level 4.2, Chloride Level 98, Carbon Dioxide Level 26, Anion Gap 8, Blood Urea Nitrogen 17, Creatinine 1.29, Estimat Glomerular Filtration Rate 57, BUN/Creatinine Ratio 13, Glucose Level 260H, Calcium Level 8.4L, Corrected Calcium 9.4, Total Bilirubin 0.4, Aspartate Amino Transf (AST/SGOT) 19, Alanine Aminotransferase (ALT/SGPT) 14, Alkaline Phosphatase 131, Total Protein 5.2L, Albumin 2.7L 03/17/21 05:16: Glucometer 242H 03/17/21 08:39: Glucometer 138H 03/17/21 11:14: Glucometer 224H Microbiology 03/14/21 Gram Stain - Final, Resulted 03/14/21 Anaerobic Culture - Preliminary, Resulted No anaerobes isolated 03/14/21 Body Fluid Culture - Preliminary, Resulted No growth 03/14/21 Fungal Culture 1, Resulted Pending Home Meds Active Levemir (Insulin Determir) 1,000 Units/10 Ml Soln 20 Unit SQ DAILY 30 Days Novolog (Insulin Aspart) 100 Unit/1 Ml Susp 0 Unit SC ACHS 30 Days [Gabapentin] 300 MG Cap 300 Mg PO Q8HR PRN Children's Aspirin (Aspirin) 81 Mg Tab.chew 81 Mg PO DAILY Spironolactone 25 Mg Tablet 25 Mg PO DAILY 30 Days Lisinopril 5 Mg Tablet 2.5 Mg PO DAILY 30 Days Carvedilol 6.25 Mg Tablet 6.25 Mg PO BID 30 Days Cephalexin 250 Mg Capsule 500 Mg PO QID 3 Days Furosemide 40 Mg Tablet 40 Mg PO BID 30 Days Reported Rosuvastatin Calcium 40 Mg Tablet 40 Mg PO DAILY Cetirizine HCl 10 Mg Tablet 10 Mg PO DAILY Triamterene-Hctz 75-50 mg Tab (Triamterene/Hydrochlorothiazid) 1 Each Tablet 1 Ea PO DAILY Flomax (Tamsulosin HCl) 0.4 Mg Cap 0.4 Mg PO DAILY Cyclobenzaprine HCl 5 Mg Tablet 5 Mg PO HS Amitriptyline HCl 10 Mg Tablet 10 Mg PO HS Hydrochlorothiazide 50 Mg Tablet 50 Mg PO DAILY [place]lvenkata [place] U-100 (Insulin Glargine,Hum.rec.anlog) 100 Unit/1 Ml Insuln.pen 45 Units SC DAILY Montelukast Sodium 10 Mg Tablet 10 Mg PO DAILY Klor-Con M20 (Potassium Chloride) 20 Meq Tab.er.prt 20 Meq PO DAILY Ventolin Hfa (Albuterol Sulfate) 18 Gm Hfa.aer.ad 2 Puff INH Q6H PRN Linzess (Linaclotide) 72 Mcg Capsule 72 Mcg PO DAILY Assessment/Pt Instructions [facility] retirement rounds Discharge Planning: <30 minutes discharge planning Discharge Instructions Discharge Diet: Low Sodium Diet, ADA Diet, Cardiac Diet Activity as Tolerated: Yes Discharge Physical Examination Vital Signs Vital Signs Date Time Temp Pulse Resp B/P (MAP) Pulse Ox O2 Delivery O2 Flow Rate FiO2 03/17/21 11:18 35.8 102 16 90/60 (70) 100 Room Air 03/14/21 12:00 2.00 03/11/21 00:26 21 General Appearance: No Apparent Distress, WD/WN, Chronically ill Neurologic/Psychiatric: Alert, Oriented x3, Depressed Affect Allergies: Coded Allergies: NKANo Known Allergies (Verified Allergy, Unknown, 12/27/07) Discharge Summary Date of Admission Mar 10, 2021 at 20:45 Date of Discharge Discharge Date: Mar 17, 2021 Admission Diagnosis 1. Acute on chronic systolic heart failure with underlying dilated cardiomyopathy aggravated by noncompliance continue IV diuretics. 2. Favor venous insufficiency related dermatitis aggravated by right heart failure caused by left heart failure we will hold antibiotics for now. 3. Contact isolation due to likely lice infestation. Discharge Diagnosis Assessment: 1. Acute on chronic systolic heart failure with underlying dilated cardiomyopathy aggravated by noncompliance continue IV diuretics. 2. Favor venous insufficiency related dermatitis aggravated by right heart failure caused by left heart failure we will hold antibiotics for now. 3. Contact isolation due to likely lice infestation. 4.episode of atrial flutter requiring cardiac stepdown transfer on [facility] drip Plan: Appreciate cardiology consult Monitor closely 03/14/21: Appreciate Dr. Mckeon Thoracentesis removed 2500 cc from the right May need thoracentesis on the left Appreciate cardiology Therapy ordered for retirement placement planning 03/15/2021: Moved to fourth floor Monitor closely Oxygen Dr. Mckeon appreciated Cardiology appreciated 03/16/2021: Awaiting insurance approval for retirement placement (1) Acute on chronic systolic heart failure Assessment & Plan: Symptomatically improved. Chest x-ray from this morning was clear. He continues on IV furosemide. I will take the liberty of adding spironolactone. He is receiving a fair amount of oral potassium since he is taking IV furosemide. I will discontinue the oral potassium since we are starting spironolactone. I will obtain a follow-up metabolic panel in the morning. I suspect he may be euvolemic by tomorrow and might be able to be discharged at that time. His regular rubber thread spooler is in [place]. (2) Cardiomyopathy Assessment & Plan: I suspect this may be ischemic cardiomyopathy given the number of coronary stents he is reported to have. His most recent echocardiogram earlier this year showed moderate left ventricular systolic dysfunction. He is on carvedilol and lisinopril. As above, I will add spironolactone. (3) Coronary artery disease without angina pectoris Assessment & Plan: He is not having any angina at this time. I recommend he continue aspirin, beta-mellisa, and statin medication. (4) Essential hypertension Assessment & Plan: Blood pressures have been well controlled and at sometimes a ctually borderline hypotensive. We will need to follow his blood pressures closely with the intravenous diuresis. We may need to back off on his antihypertensive medication if he develops symptomatic hypotension. (5) Mixed hyperlipidemia Assessment & Plan: Continue statin medication. JULIENNE ABAD DO Mar 17, 2021 11:46
--- NOTE | 2021-03-17 13:55 | Cardiology Progress Note ---
Subjective Date Seen by Provider: Mar 17, 2021 Time Seen by Provider: 13:53 Subjective/Events-last exam Patient was not evaluated, I was called to evaluate the need for [facility] arrangement Objective-Cardiology Exam Last Set of Vital Signs Vital Signs 03/11/21 03/14/21 03/17/21 00:26 12:00 11:18 Temp 35.8 Pulse 102 Resp 16 B/P (MAP) 90/60 (70) Pulse Ox 100 O2 Delivery Room Air O2 Flow Rate 2.00 FiO2 21 I&O Intake and Output 03/17/21 00:00 Intake Total 1600 ml Output Total 575 ml Balance 1025 ml Intake Oral 1600 ml Output Urine Total 575 ml # Voids 3 # Bowel Movements 3 General: Alert, Cooperative Neck: Supple Results Lab Laboratory Tests 03/17/21 05:09 A/P-Cardiology Admission Diagnosis Congestive heart failure Coronary artery disease Hypertension Hyperlipidemia Assessment/Plan Congestive heart failure with acute on chronic left ventricular systolic dysfunction, symptomatic improvement, patient was ready for discharge for [facility]. I will arrange for LifeVest, arrange for his discharge medication and review them Coronary artery disease, no active chest pain was reported. Continue to monitor Hypertension, tolerating current medication well, continue to monitor blood pressure Hyperlipidemia, monitor lipids. CHRIST CHACON MD Mar 17, 2021 1:55 pm
[2021-03-17 14:15] VITALS: BP 90/60
== END 2021-03-17 14:15 | DRG 291 ==
LOC: EDUNIT# 19:19 → ER 19:20 → 4TH 20:45 → CSD 03-13 21:05 → 4TH 03-15 13:26
PROVIDERS: ADMIT Internal Medicine; ATTEND Internal Medicine
PROC: 0W9930Z Drainage of Right Pleural Cavity with Drainage Device, Percutaneous Approach (ICD-10-PCS; principal; 2021-03-14)
DX: I13.0 Hypertensive heart and chronic kidney disease with heart failure and stage 1 through stage 4 chronic kidney disease, or unspecified chronic kidney disease (principal); J96.01 Acute respiratory failure with hypoxia; I50.23 Acute on chronic systolic (congestive) heart failure; J90 Pleural effusion, not elsewhere classified; I42.9 Cardiomyopathy, unspecified; I25.10 Atherosclerotic heart disease of native coronary artery without angina pectoris; M19.90 Unspecified osteoarthritis, unspecified site; E11.9 Type 2 diabetes mellitus without complications; I87.2 Venous insufficiency (chronic) (peripheral); E87.6 Hypokalemia; I48.91 Unspecified atrial fibrillation; E78.2 Mixed hyperlipidemia; R53.81 Other malaise; N18.9 Chronic kidney disease, unspecified; E87.70 Fluid overload, unspecified; Z79.4 Long term (current) use of insulin; Z79.899 Other long term (current) drug therapy; Z95.5 Presence of coronary angioplasty implant and graft; I25.2 Old myocardial infarction; Z86.73 Personal history of transient ischemic attack (TIA), and cerebral infarction without residual deficits
CPT/HCPCS: 36415; 71045; 76604; 76942; 80048; 80053; 80306; 81000; 82042; 82150; 82945; 82947; 83615; 83880; 84145; 84157; 84478; 85007; 85025; 85027; 86141; 87070; 87075; 87101; 87205; 89051; 93005; 93970; 96374

== ENCOUNTER 2021-06-19 06:08 | Outpatient (CLI) | payer MEDICARE, MEDICAID ==
[~2021-06-19] VITALS: Ht 170 cm; Wt 63.6 kg
[~2021-06-19 06:08] MED LIST changes: +ASPI81TA64 PO; +CARV6.252 PO; +CEPH250C PO; +Gabapentin PO; +INSU100V16 SC; +INSU100V5 SQ; +LISI-729 PO; +ROSU40TA23 PO; +SPIR25TA5 PO
[2021-06-19] MEDS ORDERED: LISI-729 PO (11:16)
[2021-06-19] MEDS ORDERED: ASPI-999 PO (11:16)
[2021-06-19] MEDS ORDERED: CARV6.252 PO (11:16)
[2021-06-19] MEDS ORDERED: FURO40TA4 PO (11:16)
[2021-06-19] MEDS ORDERED: GABA300C PO (11:16)
[2021-06-19] MEDS ORDERED: SPIR25TA5 PO (11:16)
== END 2021-06-19 11:16 | disposition home or self-care (01) ==
LOC: PREOP 06:08
PROVIDERS: ATTEND Specialist
DX: Z01.818 Encounter for other preprocedural examination (principal)

== ENCOUNTER → 2021-06-23 | Day surgery (SDC) | payer MEDICARE, MEDICAID ==
[~2021-06-23] MED LIST changes: +ASPI-999 PO; +GABA300C PO
== END ==
LOC: SDC 10:29
PROVIDERS: ATTEND Specialist
DX: H25.12 Age-related nuclear cataract, left eye (principal); Z53.9 Procedure and treatment not carried out, unspecified reason

== ENCOUNTER 2021-08-15 05:35 | Outpatient (CLI) | payer MEDICARE, MEDICAID ==
[~2021-08-15 05:35] MED LIST changes: -LISI-729 PO; +LISI5TAB20 PO; +MONT-40 PO; -MONT10TA32 PO; +POTA-169 PO; -POTA20TA8 PO
[2021-08-16] MEDS ORDERED: INSU100I29 SQ (14:29)
[2021-08-16] MEDS ORDERED: INSU100V16 SQ (14:29)
== END 2021-08-16 14:31 | disposition home or self-care (01) ==
LOC: PREOP 05:35
PROVIDERS: ATTEND Specialist
DX: Z01.818 Encounter for other preprocedural examination (principal)

== ENCOUNTER 2021-08-18 10:47 | Day surgery (SDC) | payer MEDICARE, MEDICAID ==
[~2021-08-18] VITALS: Ht 170 cm; Wt 63.6 kg
[~2021-08-18 10:47] MED LIST changes: +INSU100I29 SQ; +INSU100V16 SQ
[2021-08-18] MEDS ORDERED: MOXIFLOXACIN OPHTH SOLN 5 MG/ML 0.3 ML SYRINGE OP ONE (11:15)
[2021-08-18] MEDS: TETRACAINE 0.5% OPHTH SOLN 4 ML BTL (SINGLE DOSE ONLY) OU PRN ×4 (11:15→11:33)
[2021-08-18] MEDS ORDERED: LIDOCAINE PF 1% 2 ML VIAL IR PRN (11:15)
[2021-08-18] MEDS ORDERED: TIMOLOL MALEATE 0.5% 5 ML (TIMOPTIC) BTL OU PRN (11:15)
[2021-08-18] MEDS ORDERED: POVIDONE (BETADINE) OPHTH SOLN 5% 30 ML OP ONE (11:15)
[2021-08-18 11:19] VITALS: BP 158/104
[2021-08-18] MEDS: PHENYLEPHRINE 10% OPHTH (NEO-SYN) 5 ML BTL OU SCH ×3 (11:21→11:33)
[2021-08-18] MEDS: TROPICAMIDE 1% OPH SOLN (MYDRIACYL) 15 ML BTL OP SCH ×3 (11:21→11:33)
--- NOTE | 2021-08-18 11:38 | Ophthalmologist Pre-Op Note ---
Pre-Operative Progress Note H&P Reviewed The H&P was reviewed, patient examined and no changes noted. Date H&P Reviewed: Aug 18, 2021 Time H&P Reviewed: 11:38 Pre-Op Dx Cataract, Left Eye DENI DEE MD Aug 18, 2021 11:38
--- NOTE | 2021-08-18 12:06 | Ophthalmology Operative Report ---
Cataract removal/placement IOL PREOPERATIVE DIAGNOSIS: Cataract Left Eye POSTOPERATIVE DIAGNOSIS: Cataract Left Eye PROCEDURE: Cataract removal and placement of posterior chamber implant, left eye SURGEON: Mohsen Dee ANESTHESIA: Topical with sedation COMPLICATIONS: None ESTIMATED BLOOD LOSS: Minimal DESCRIPTION OF PROCEDURE: After proper informed consent was obtained, the patient, a 60 male, was taken to the Operating Room and the left eye was anesthetized with tetracaine. The left eye was then prepped and draped in the usual manner. A wire lid speculum was placed. A paracentesis was made at the left hand position. Preservative free lidocaine was injected into the anterior chamber followed by viscoelastic. A clear corneal incision was made in the temporal position. A capsulorrhexis was preformed and the central nuclear and cortical material were removed. The posterior capsule was polished and an [place] 31.0 SN60AT was placed into the capsular bag. The residual viscoelastic was aspirated and balanced saline solution was injected into the anterior chamber. Moxifloxacin was injected into the anterior chamber. The wound was checked and found to be water tight. The patient tolerated the procedure well without complications. MOHSEN DEE MD Aug 18, 2021 12:06
[2021-08-18 12:14] VITALS: BP 133/84
--- NOTE | 2021-08-18 12:43 | Anesthesia-General Post-Op ---
MAC Patient Condition Mental Status/LOC: Same as Preop Cardiovascular: Satisfactory Nausea/Vomiting: Absent Respiratory: Satisfactory Pain: Controlled Complications: Absent Post Op Complications Complications None Follow Up Care/Instructions Patient Instructions None needed. Anesthesiology Discharge Order Discharge Order Patient is doing well, no complaints, stable vital signs, no apparent adverse anesthesia problems. No complications reported per nursing. KOLE SANCHEZ CRNA Aug 18, 2021 12:43
[2021-08-18] MEDS ORDERED: acetaZOLAMIDE ER 500 MG CAP (DIAMOX SEQUELS) PO ONE (13:30)
== END 2021-08-18 12:16 ==
LOC: SDC 10:47
PROVIDERS: ATTEND Specialist
DX: E11.36 Type 2 diabetes mellitus with diabetic cataract (principal); H25.12 Age-related nuclear cataract, left eye; I10 Essential (primary) hypertension; Z86.73 Personal history of transient ischemic attack (TIA), and cerebral infarction without residual deficits
CPT/HCPCS: 66984; 82947; V2632

== ENCOUNTER → 2021-09-01 | Day surgery (SDC) | payer MEDICARE, MEDICAID ==
[~2021-09-01] VITALS: Ht 170 cm; Wt 63.6 kg
[~2021-09-01] MED LIST changes: +LIDOCAINE PF 1% 2 ML VIAL IR PRN; +MOXIFLOXACIN OPHTH SOLN 5 MG/ML 0.3 ML SYRINGE OP ONE; +POVIDONE (BETADINE) OPHTH SOLN 5% 30 ML OP ONE; +TIMOLOL MALEATE 0.5% 5 ML (TIMOPTIC) BTL OU PRN; +acetaZOLAMIDE ER 500 MG CAP (DIAMOX SEQUELS) PO ONE
[2021-09-01] MEDS: TETRACAINE 0.5% OPHTH SOLN 4 ML BTL (SINGLE DOSE ONLY) OU PRN ×4 (11:16→12:35)
[2021-09-01] MEDS: PHENYLEPHRINE 10% OPHTH (NEO-SYN) 5 ML BTL OU SCH ×3 (11:27→11:38)
[2021-09-01] MEDS: TROPICAMIDE 1% OPH SOLN (MYDRIACYL) 15 ML BTL OP SCH ×3 (11:27→11:38)
[2021-09-01 11:42] VITALS: BP 140/95
--- NOTE | 2021-09-01 12:26 | Ophthalmologist Pre-Op Note ---
Pre-Operative Progress Note H&P Reviewed The H&P was reviewed, patient examined and no changes noted. Date H&P Reviewed: Sep 01, 2021 Time H&P Reviewed: 12:26 Pre-Op Dx Cataract, Right Eye DENI DEE MD Sep 01, 2021 12:26
--- NOTE | 2021-09-01 13:00 | Ophthalmology Operative Report ---
Cataract removal/placement IOL PREOPERATIVE DIAGNOSIS: Cataract Right Eye POSTOPERATIVE DIAGNOSIS: Cataract Right Eye PROCEDURE: Cataract removal and placement of posterior chamber implant, right eye SURGEON: Mohsen Dee ANESTHESIA: Topical with sedation COMPLICATIONS: None ESTIMATED BLOOD LOSS: Minimal DESCRIPTION OF PROCEDURE: After proper informed consent was obtained, the patient, a 60 male, was taken to the Operating Room and the right eye was anesthetized with tetracaine. The right eye was then prepped and draped in the usual manner. A wire lid speculum was placed. A paracentesis was made at the left hand position. Preservative free lidocaine was injected into the anterior chamber followed by viscoelastic. A clear corneal incision was made in the temporal position. A capsulorrhexis was preformed and the central nuclear and cortical material were removed. The posterior capsule was polished and [place]ñito 32.0 SN60AT IOL was placed into the capsular bag. The residual viscoelastic was aspirated and balanced saline solution was injected into the anterior chamber. Moxifloxacin was injected into the anterior chamber. The wound was checked and found to be water tight. The patient tolerated the procedure well without complications. MOHSEN DEE MD Sep 01, 2021 13:00
--- NOTE | 2021-09-01 13:15 | Anesthesia-General Post-Op ---
MAC Patient Condition Mental Status/LOC: Same as Preop Cardiovascular: Satisfactory Nausea/Vomiting: Absent Respiratory: Satisfactory Pain: Controlled Complications: Absent Post Op Complications Complications None Follow Up Care/Instructions Patient Instructions None needed. Anesthesiology Discharge Order Discharge Order Patient is doing well, no complaints, stable vital signs, no apparent adverse anesthesia problems. No complications reported per nursing. MORA CARVALHO CRNA Sep 01, 2021 13:15
== END ==
LOC: SDC 11:01
PROVIDERS: ATTEND Specialist
DX: E11.36 Type 2 diabetes mellitus with diabetic cataract (principal); H25.11 Age-related nuclear cataract, right eye; I63.9 Cerebral infarction, unspecified; I10 Essential (primary) hypertension
CPT/HCPCS: 82947